=== PATIENT | male | born 1970 | race Caucasian/White ===

== ENCOUNTER → 2020-02-09 11:07 | Outpatient (BNVA) | payer OTHER, SELFPAY | PROVIDERS: PCP Family Medicine; Visit Provider Internal Medicine | DX: F11.20 Opioid dependence, uncomplicated (principal); F14.90 Cocaine use, unspecified, uncomplicated; E11.9 Type 2 diabetes mellitus without complications; Z79.4 Long term (current) use of insulin; Z59.0 Homelessness | CPT/HCPCS: 80305; 99202; 99211 ==

== ENCOUNTER → 2020-02-23 10:10 | Outpatient (BNVA) | payer OTHER, SELFPAY | PROVIDERS: PCP Family Medicine; Visit Provider Internal Medicine | DX: F11.99 Opioid use, unspecified with unspecified opioid-induced disorder (principal) | CPT/HCPCS: 80305; 99211 ==

== ENCOUNTER → 2020-03-08 10:49 | Outpatient (BNVA) | payer OTHER, SELFPAY | PROVIDERS: Visit Provider Internal Medicine | DX: Z76.89 Persons encountering health services in other specified circumstances (principal) | CPT/HCPCS: Q3014 ==

== ENCOUNTER → 2020-03-21 14:25 | Outpatient (BNVA) | payer OTHER, SELFPAY | PROVIDERS: Visit Provider Nurse Practitioner Psychiatric/Mental Health | DX: Z13.89 Encounter for screening for other disorder (principal) | CPT/HCPCS: Q3014 ==

== ENCOUNTER → 2020-04-04 13:17 | Outpatient (BNVA) | payer OTHER, SELFPAY | PROVIDERS: Visit Provider Nurse Practitioner Psychiatric/Mental Health | DX: F11.20 Opioid dependence, uncomplicated (principal) | CPT/HCPCS: Q3014 ==

== ENCOUNTER → 2020-04-19 10:53 | Outpatient (BNVA) | payer OTHER, SELFPAY | PROVIDERS: Visit Provider Internal Medicine | DX: Z13.89 Encounter for screening for other disorder (principal) | CPT/HCPCS: 99212 ==

== ENCOUNTER → 2020-05-03 12:03 | Outpatient (BNVA) | payer OTHER, SELFPAY | PROVIDERS: Visit Provider Internal Medicine | DX: F11.99 Opioid use, unspecified with unspecified opioid-induced disorder (principal) | CPT/HCPCS: Q3014 ==

== ENCOUNTER → 2020-05-17 15:32 | Outpatient (BNVA) | payer OTHER, SELFPAY | PROVIDERS: Visit Provider Internal Medicine | DX: F11.99 Opioid use, unspecified with unspecified opioid-induced disorder (principal) | CPT/HCPCS: Q3014 ==

== ENCOUNTER → 2020-05-31 09:55 | Outpatient (BNVA) | payer OTHER, SELFPAY | PROVIDERS: Visit Provider Internal Medicine | DX: F11.99 Opioid use, unspecified with unspecified opioid-induced disorder (principal); Z79.899 Other long term (current) drug therapy | CPT/HCPCS: 80305; 99212 ==

== ENCOUNTER → 2020-06-07 09:50 | Outpatient (BNVA) | payer OTHER, SELFPAY | PROVIDERS: Visit Provider Internal Medicine | DX: F11.99 Opioid use, unspecified with unspecified opioid-induced disorder (principal) | CPT/HCPCS: 80305; 99212 ==

== ENCOUNTER → 2020-06-19 10:22 | Outpatient (BNVA) | payer OTHER, SELFPAY | PROVIDERS: Visit Provider Internal Medicine | DX: Z51.81 Encounter for therapeutic drug level monitoring (principal) | CPT/HCPCS: 80305; Q3014 ==

== ENCOUNTER → 2020-07-05 09:02 | Outpatient (BNVA) | payer OTHER, SELFPAY | PROVIDERS: Visit Provider Internal Medicine | DX: Z51.81 Encounter for therapeutic drug level monitoring (principal); F11.20 Opioid dependence, uncomplicated; F14.90 Cocaine use, unspecified, uncomplicated | CPT/HCPCS: 80305; 99211; 99212 ==

== ENCOUNTER 2020-09-09 23:27 | Inpatient (IN) | payer OTHER, SELFPAY ==
--- NOTE | ~2020-09-09 | CT_ITS ---
EXAMINATION: CT HEAD WITHOUT CONTRAST CLINICAL INFORMATION: Altered mental status COMPARISON: 11/09/2017 TECHNIQUE: Contiguous axial imaging was performed from the skull base to vertex without intravenous administration of contrast. This CT examination was performed using dose optimization techniques as appropriate, variously including the following: *Automated exposure control *Adjustment of mA and/or kV according to patient size (this includes techniques or standardized protocols for targeted exams where dose is matched to indication/reason for exam; i.e. extremities or head) *Use of iterative reconstruction technique DLP: 1493 mGy-cm FINDINGS: There is no evidence of acute intracranial hemorrhage or territorial infarction. No abnormal mass effect or midline shift is seen. Rose to white matter differentiation is well preserved. No extra-axial fluid collections are identified. The ventricles are normal in size. There is no abnormal attenuation within the brain parenchyma. The osseous structures and soft tissues are normal. The mastoid air cells and visualized portions of the paranasal sinuses are well aerated. CT/CT head/brain wo con IMPRESSION: No acute intracranial pathology.
[2020-09-09 23:29] VITALS: BP 160/105; O2SAT 100; BMI 29.9
[2020-09-09 23:43] LABS: Glucose, Whole Blood 367 mg/dL (60-115)
--- NOTE | 2020-09-09 23:55 | ECG_ITS ---
Test Reason : SUBSTANCE USE Blood Pressure : / mmHG Vent. Rate : 099 BPM Atrial Rate : 099 BPM P-R Int : 132 ms QRS Dur : 086 ms QT Int : 388 ms P-R-T Axes : 079 085 075 degrees QTc Int : 497 ms Normal sinus rhythm Biatrial enlargement Abnormal ECG When compared with ECG of 13-NOV-2019 20:27, No significant changes seen Referred By: Fani Ponce Electronically Signed By:Charly Luu
--- NOTE | 2020-09-09 23:57 | ED_ITS ---
HPI - General Adult General Chief complaint: General Medical Stated complaint: cocaine use Time Seen by Provider: 09/09/20 23:49 Source: patient and EMS Mode of arrival: EMS Limitations: no limitations History of Present Illness HPI narrative: Patient is brought to the emergency room by EMS. EMS got a phone call, stating that the patient had high blood sugar. However, the patient has altered mental status. Patient states that he used heroin. Patient is also known to use cocaine but denies using cocaine. Patient complaining of feeling very thirsty. Related Data Home Medications Medication Instructions Recorded Confirmed buspirone 10 mg tablet 10 mg PO TID 02/09/20 07/05/20 clonidine HCl 0.1 mg tablet 0.1 mg PO BID PRN 02/09/20 07/05/20 insulin glargine 100 unit/mL (3 unit SUBCUT 02/09/20 07/05/20 mL) subcutaneous pen quetiapine 50 mg tablet 50 mg PO BEDTIME 02/09/20 07/05/20 trazodone 100 mg tablet 100 mg PO BEDTIME PRN 02/09/20 07/05/20 Previous Rx's Medication Instructions Recorded buprenorphine 8 mg-naloxone 2 mg 2 film SUBLINGUAL DAILY 14 Days 07/05/20 sublingual film #28 ea Allergies Allergy/AdvReac Type Severity Reaction Status Date / Time Penicillins Allergy Unknown UNKNOWN Verified 07/05/20 09:49 Review of Systems Review of Systems: Constitutional : No Weight loss, No Fever, No Chills, No Night Sweats, No Fatigue, No Malaise ENT/Mouth : No Hearing loss, No Ear Pain, No Nasal Congestion, No Sinus Pain, No Hoarseness, No sore throat, No Rhinorrhea, No Swallowing Difficulty Eyes: No Eye Pain, No Swelling, No Redness, No Foreign Body, No Discharge, No Vision Changes Cardiovascular : No Chest Pain, No SOB, No Dyspnea on Exertion, No Orthopnea, No Edema, No Palpitations Respiratory : No Cough, No Sputum, No Wheezing, No Smoke Exposure, No Dyspnea Gastrointestinal : Complaining of nausea and vomiting, No Diarrhea, No Constipation, No abdominal Pain, No Hematochezia, No Melena Genitourinary : no irregular bleeding, No Dysuria, No Urinary Frequency, No Hematuria, No Urinary Incontinence, No Urgency, No Flank Pain, No Urinary Flow Changes, No Hesitancy Musculoskeletal : No joint pain, No Myalgias, No Joint Swelling Skin : No Skin Lesions, No rash Neuro : No Weakness, No Numbness, No Paresthesias, No Loss of Consciousness, No Dizziness, No Headache Psych : No Anxiety/Panic, No Depression, No SI/HI/AH/VH, No Social Issues, Heme/Lymph: No Bruising, No Bleeding,No Lymphadenopathy Endocrine : No Polyuria, No Polydipsia, No Temperature Intolerance [facility] Past Medical History Medical History Opioid use disorder Opioid use disorder, mild, in controlled environment Physical Exam Vital Signs: Vital Signs: Body Mass Index 29.9 Appearance: Alert. Somnolent but easily arousable. Eyes: Pupils equal, round and reactive to light. ENT: Pharynx normal. Neck: Normal inspection. Neck supple. No lymph nodes noted. No crepitus CVS: Normal heart rate and rhythm. Pulses normal. Normal S1 and S2 Respiratory: No respiratory distress. Breath sounds normal. No Wheezing. No rales Abdomen: Soft and nontender. No rigidity. No distention. good BS x4 Skin: Skin warm and dry. Normal skin color. Normal skin turgor. Extremities: No lower extremity edema. No lower extremity edema. No Lacerations. No Rash Neuro: No sensory deficit. Moving all extermities. No slurred speech. Course Course Course Narrative: After a 1 L of normal saline and 10 units of insulin, patient point of care glucose is 312. Patient is receiving 5 more units of IV insulin and more fluids. Patient continues being nauseous and vomiting, patient already received Zofran and Compazine, patient is now receiving Reglan as well. Patient's anion gap is open, repeat labs are due at 05:00. Patient is no longer vomiting, denying gap is close and blood sugar control, patient likely to be discharged home. Sign-out given to Dr. Dupree Medical Decision Making Lab Data Result diagrams: 09/10/20 00:44 09/10/20 00:44 Labs: Lab Results 09/09/20 09/10/20 09/10/20 Range/Units 23:38 00:44 00:44 WBC 10.7 (4.8-10.8) X10*3/uL RBC 5.63 (4.60-5.80) X10*6/uL Hgb 16.0 (14.0-18.0) g/dl Hct 45.6 (42-52) % MCV 81.0 (80-98) fL MCH 28.4 (27.0-33.0) pg MCHC 35.1 (31.0-36.0) g/dl RDW 12.3 (11.0-16.0) % Plt Count 416 H (160-400) X10*3/uL MPV 9.7 (9.4-12.4) fL Immature Gran % (Auto) 0.4 (0.0-0.4) % Neut % (Auto) 88.4 H (45-73) % Lymph % (Auto) 8.5 L (20-40) % [place] % (Auto) 2.4 (2-11) % Eos % (Auto) 0.0 (0-4) % Baso % (Auto) 0.3 (0-2) % Lymph # (Auto) 0.9 L (1.2-4.9) X10*3/uL [place] # (Auto) 0.3 (0.1-1.2) X10*3/uL Eos # (Auto) 0.0 (0.0-0.4) X10*3/uL Baso # (Auto) 0.0 (0.0-0.2) X10*3/uL Abs Immat Gran (auto) 0.04 H (0.00-0.03) X10*3/uL Absolute Neuts (auto) 9.5 H (2.0-8.3) X10*3/uL Absolute Nucleated RBC 0.000 (0.0-0.012) X10*3/uL Nucleated RBC % (auto) 0.0 (0.0-0.2) /100WBC Sodium 138 (135-145) mmol/L Potassium 3.5 (3.3-5.1) mmol/L Chloride 98 (96-108) mmol/L Carbon Dioxide 19 L (22-29) mmol/L Anion Gap 25 H (12-20) BUN 27 H (9-16) mg/dL Creatinine 1.35 (0.5-1.4) mg/dL Estim Creat Clear Calc 68.7 Estimated GFR 56 POC Glucose 367 H* (60-115) mg/dL Random Glucose 338 H (60-115) mg/dL Calcium 10.2 (8.4-10.2) mg/dL Total Bilirubin 0.7 (0.0-1.0) mg/dL Direct Bilirubin 0.3 (0.0-0.5) mg/dL AST 22 (5-37) U/L ALT 23 (0-40) U/L Alkaline Phosphatase 103 (39-117) U/L Total Protein 7.8 (6.5-8.0) g/dL Albumin 4.5 (3.5-5.0) g/dL Urine Color Urine Appearance Urine pH (5.0-8.0) Ur Specific [place] (1.005-1.025) Urine Protein (NEG-TRACE) MG/DL Urine Glucose (UA) (NEG) MG/DL Urine Ketones (NEG) MG/DL Urine Blood (NEG) Urine Nitrite (NEG) Ur Leukocyte Esterase (NEG) Urine RBC (0) /HPF Urine WBC (0-4) /HPF Ur Squamous Epith Cells /LPF Urine Bacteria /LPF Urine Mucus /LPF Urine Opiates Screen (Not Detect) Ur Barbiturates Screen (Not Detect) Ur Phencyclidine Scrn (Not Detect) Ur Amphetamines Screen (Not Detect) U Benzodiazepines Scrn (Not Detect) Urine Cocaine Screen (Not Detect) U Marijuana (THC) Screen (Not Detect) Ethyl Alcohol mg/dL Acetone, Qual Moderate H (Negative) 09/10/20 09/10/20 09/10/20 Range/Units 00:44 00:58 00:58 WBC (4.8-10.8) X10*3/uL RBC (4.60-5.80) X10*6/uL Hgb (14.0-18.0) g/dl Hct (42-52) % MCV (80-98) fL MCH (27.0-33.0) pg MCHC (31.0-36.0) g/dl RDW (11.0-16.0) % Plt Count (160-400) X10*3/uL MPV (9.4-12.4) fL Immature Gran % (Auto) (0.0-0.4) % Neut % (Auto) (45-73) % Lymph % (Auto) (20-40) % [place] % (Auto) (2-11) % Eos % (Auto) (0-4) % Baso % (Auto) (0-2) % Lymph # (Auto) (1.2-4.9) X10*3/uL [place] # (Auto) (0.1-1.2) X10*3/uL Eos # (Auto) (0.0-0.4) X10*3/uL Baso # (Auto) (0.0-0.2) X10*3/uL Abs Immat Gran (auto) (0.00-0.03) X10*3/uL Absolute Neuts (auto) (2.0-8.3) X10*3/uL Absolute Nucleated RBC (0.0-0.012) X10*3/uL Nucleated RBC % (auto) (0.0-0.2) /100WBC Sodium (135-145) mmol/L Potassium (3.3-5.1) mmol/L Chloride (96-108) mmol/L Carbon Dioxide (22-29) mmol/L Anion Gap (12-20) BUN (9-16) mg/dL Creatinine (0.5-1.4) mg/dL Estim Creat Clear Calc Estimated GFR POC Glucose (60-115) mg/dL Random Glucose (60-115) mg/dL Calcium (8.4-10.2) mg/dL Total Bilirubin (0.0-1.0) mg/dL Direct Bilirubin (0.0-0.5) mg/dL AST (5-37) U/L ALT (0-40) U/L Alkaline Phosphatase (39-117) U/L Total Protein (6.5-8.0) g/dL Albumin (3.5-5.0) g/dL Urine Color YELLOW Urine Appearance CLEAR Urine pH 6.0 (5.0-8.0) Ur Specific [place] >= 1.030 H (1.005-1.025) Urine Protein 1+ H (NEG-TRACE) MG/DL Urine Glucose (UA) 500 H (NEG) MG/DL Urine Ketones >=80 (NEG) MG/DL Urine Blood TRACE (NEG) Urine Nitrite NEG (NEG) Ur Leukocyte Esterase NEG (NEG) Urine RBC 1-4 (0) /HPF Urine WBC 0 (0-4) /HPF Ur Squamous Epith Cells TRACE /LPF Urine Bacteria TRACE /LPF Urine Mucus 1+ /LPF Urine Opiates Screen POSITIVE H (Not Detect) Ur Barbiturates Screen Not Detected (Not Detect) Ur Phencyclidine Scrn Not Detected (Not Detect) Ur Amphetamines Screen Not Detected (Not Detect) U Benzodiazepines Scrn Not Detected (Not Detect) Urine Cocaine Screen POSITIVE H (Not Detect) U Marijuana (THC) Screen Not Detected (Not Detect) Ethyl Alcohol < 10 mg/dL Acetone, Qual (Negative) Imaging Data CT scan - head: Radiologist's impression: FINDINGS: There is no evidence of acute intracranial hemorrhage or territorial infarction. No abnormal mass effect or midline shift is seen. Rose to white matter differentiation is well preserved. No extra-axial fluid collections are identified. The ventricles are normal in size. There is no abnormal attenuation within the brain parenchyma. The osseous structures and soft tissues are normal. The mastoid air cells and visualized portions of the paranasal sinuses are well aerated. CT/CT head/brain wo con IMPRESSION: No acute intracranial pathology. ECG Data Attestation: I personally reviewed and interpreted this ECG as follows: (Tender rhythm, heart rate 99, no ST segment depression or elevation, no T-wave inversions, QTC 497) Discharge Plan Discharge Clinical Impression: Substance abuse, Hyperglycemia Instructions: Diabetic Hyperglycemia (ED), Polysubstance Abuse (ED) Additional Instructions: Please follow-up with your primary care physician tomorrow. If you have any w orsening or new symptoms, please return to the emergency room or call 911 Prescriptions: No Action buprenorphine-naloxone [Suboxone] 8-2 mg film 2 film sublingual DAILY 14 Days Qty: 28 RF: 0 quetiapine 50 mg tablet 50 mg PO BEDTIME RF: 0 Lantus Solostar U-100 Insulin 100 unit/mL (3 mL) insulin pen subcut RF: 0 buspirone 10 mg tablet 10 mg PO TID RF: 0 clonidine HCl 0.1 mg tablet 0.1 mg PO BID PRN (Reason: anxiety) RF: 0 trazodone 100 mg tablet 100 mg PO BEDTIME PRN (Reason: insomnia) RF: 0
[2020-09-10] VITALS (20 sets, daily range): BP systolic 140–206; BP diastolic 66–95; PULSE 78–118; RESP 14–38; TEMP 37.6–38; O2SAT 94–100; BMI 27.3
[2020-09-10] MEDS: 0.9 % Sodium Chloride 1,000 ML 999 ML IVCONT ×3 (00:06→02:58)
[2020-09-10] MEDS: Insulin Regular, Human 100 UNIT/ML 3 ML VIAL 10 UNIT IVPUSH (00:06)
[2020-09-10] MEDS: ondansetron HCL 4 MG/2 ML VIAL IVPUSH ×2 (00:17→23:03)
[2020-09-10 00:48] LABS: Basophils Percent Auto 0.3 % (0-2); Hematocrit 45.6 % (42-52); Imm Gran Abs Auto 0.04 X10*3/uL (0.00-0.03); Imm Gran Pct Auto 0.4 % (0.0-0.4); Lymphocytes Absolute Auto 0.9 X10*3/uL (1.2-4.9); Lymphocytes Percent Auto 8.5 % (20-40); MANUAL DIFF FLAG NO; Mean Corpuscular HGB Conc 35.1 g/dl (31.0-36.0); Mean Corpuscular Hemoglobin 28.4 pg (27.0-33.0); Mean Platelet Volume 9.7 fL (9.4-12.4); Monocytes Absolute Auto 0.3 X10*3/uL (0.1-1.2); Monocytes Percent Auto 2.4 % (2-11); Neutrophils Absolute Auto 9.5 X10*3/uL (2.0-8.3); Neutrophils Percent Auto 88.4 % (45-73); Platelet Count 416 X10*3/uL (160-400); Red Blood Count 5.63 X10*6/uL (4.60-5.80); Red Cell Distribution Width 12.3 % (11.0-16.0); White Blood Count 10.7 X10*3/uL (4.8-10.8)
[2020-09-10 01:05] LABS: Appearance Urine CLEAR; Color Urine YELLOW; Glucose Urine UA 500 MG/DL (NEG); Leukocyte Esterase Urine NEG (NEG); Nitrite Urine NEG (NEG); Specific Gravity - Urine >= 1.030 (1.005-1.025); Urine Blood TRACE (NEG); Urine Ketones >=80 MG/DL (NEG); Urine Protein 1+ MG/DL (NEG-TRACE)
[2020-09-10 01:17] LABS: Bacteria Urine TRACE /LPF; Mucus Urine 1+ /LPF; Squamous Epithelial Cell Urine TRACE /LPF; WBC Urine 0 /HPF (0-4)
[2020-09-10 01:19] LABS: Acetone, serum QL Moderate (Negative)
[2020-09-10 01:25] LABS: Alanine Aminotransferase 23 U/L (0-40); Albumin Level 4.5 g/dL (3.5-5.0); Alkaline Phosphatase 103 U/L (39-117); Aspartate Amino Transferase 22 U/L (5-37); Bilirubin Direct 0.3 mg/dL (0.0-0.5); Bilirubin Total 0.7 mg/dL (0.0-1.0); Blood Urea Nitrogen 27 mg/dL (9-16); Calcium 10.2 mg/dL (8.4-10.2); Creatinine Clr Calc Pharmacy 68.7; Estimated Glomerular Filt Rate 56; Glucose Random 338 mg/dL (60-115); Total Protein 7.8 g/dL (6.5-8.0)
[2020-09-10 01:38] LABS: Amphetamine Screen Urine Not Detected (Not Detect); Barbiturates, Urine Not Detected (Not Detect); Benzodiazepines Screen Urine Not Detected (Not Detect); Cannabinoid Screen Urine Not Detected (Not Detect); Cocaine Screen Urine POSITIVE (Not Detect); Opiate Screen Urine POSITIVE (Not Detect); Phencyclidine Screen Urine Not Detected (Not Detect)
[2020-09-10 01:39] LABS: Anion Gap 25 (12-20); Carbon Dioxide 19 mmol/L (22-29); Chloride 98 mmol/L (96-108); Potassium 3.5 mmol/L (3.3-5.1); Sodium 138 mmol/L (135-145)
[2020-09-10 01:49] LABS: Ethanol < 10 mg/dL
[2020-09-10] MEDS: Prochlorperazine Edisylate 10 MG/2 ML VIAL IVPUSH (02:26)
[2020-09-10] MEDS: Insulin Regular, Human 100 UNIT/ML 3 ML VIAL IVPUSH (02:58)
[2020-09-10 05:28] LABS: Glucose, Whole Blood 266 mg/dL (60-115)
[2020-09-10 05:28] LABS: Glucose, Whole Blood 312 mg/dL (60-115)
[2020-09-10] MEDS: diphenhydrAMINE HCL 50 MG/ML VIAL 25 MG IVPUSH (05:30)
[2020-09-10] MEDS: Metoclopramide HCl 10 MG/2 ML VIAL IVPUSH (05:30)
[2020-09-10 05:57] LABS: Anion Gap 26 (12-20); Blood Urea Nitrogen 28 mg/dL (9-16); Calcium 9.3 mg/dL (8.4-10.2); Carbon Dioxide 19 mmol/L (22-29); Chloride 99 mmol/L (96-108); Creatinine Clr Calc Pharmacy 69.8; Estimated Glomerular Filt Rate 57; Glucose Random 394 mg/dL (60-115); Potassium 3.6 mmol/L (3.3-5.1); Sodium 140 mmol/L (135-145)
[2020-09-10] MEDS: Lactated Ringers 2,000 ML 999 ML IV (07:18)
[2020-09-10] MEDS: Insulin Regular/NS 100 UNIT/100 ML PLAST..BAG 10 UNIT IVCONT (07:20)
--- NOTE | 2020-09-10 07:26 | PC.NURSE ---
pt is responsive to painful stimuli, placed on cardiac exercise physiologist- hr 110s, rr in the 40s. iv placed in r forearm and iv by ems in l ac patent. medicated per emar and insulin drip started per order.
[2020-09-10 07:45] LABS: COVID-19 Test Negative (Negative)
--- NOTE | 2020-09-10 07:52 | PC.NURSE ---
plan to start new ivf with potassium, if no icu bed, plan to transfer pt.
[2020-09-10 08:44] LABS: Glucose, Whole Blood 335 mg/dL (60-115)
--- NOTE | 2020-09-10 08:47 | ED.GENADULT ---
HPI - General Adult General Chief complaint: General Medical Stated complaint: cocaine use Time Seen by Provider: 09/09/20 23:49 Source: patient and EMS Mode of arrival: EMS Limitations: no limitations Related Data Home Medications Medication Instructions Recorded Confirmed clonidine HCl 0.1 mg tablet 0.1 mg PO BID PRN 02/09/20 09/13/20 insulin glargine 100 unit/mL (3 40 unit SUBCUT BEDTIME 02/09/20 09/13/20 mL) subcutaneous pen trazodone 100 mg tablet 100 mg PO BEDTIME PRN 02/09/20 09/13/20 hydroxyzine HCl 25 mg tablet 1 tab PO BID PRN 09/13/20 09/13/20 insulin aspart U-100 100 unit/mL See Protocol SUBCUT DIRECTED 09/13/20 09/13/20 (3 mL) subcutaneous pen (Novolog Flexpen U-100 Insulin aspart) quetiapine 100 mg tablet 1 tab PO BEDTIME 09/13/20 09/13/20 Previous Rx's Medication Instructions Recorded oxycodone-acetaminophen 5 mg-325 1 - 2 tab PO Q6H PRN #20 tab 09/20/20 mg tablet (Percocet) omeprazole magnesium 20 mg 20 mg PO BID #60 tab 09/26/20 tablet,delayed release (Prilosec OTC) buprenorphine 8 mg-naloxone 2 mg 2 film SUBLINGUAL DAILY 7 Days #14 10/09/20 sublingual film (Suboxone) ea Allergies Allergy/AdvReac Type Severity Reaction Status Date / Time Penicillins Allergy Unknown UNKNOWN Verified 09/26/20 11:39 [facility] Past Medical History Medical History (Updated 09/26/20 @ 11:39 by Daquan Bermudez MD) Opioid use disorder Perforated chronic gastric ulcer Social History Social History Household Members: Family Housing: Apartment Do you presently have visiting nurse or other home services: No Alcohol intake: current Alcohol intake frequency: does not drink Patient Tobacco Use Status: Current everyday Tobacco user Tobacco use type: Cigarette Cigarette Packs Per Day: 1 Cigarettes Per Day: 20.0 Second Hand Smoke Exposure: No Substance Use Type: Crack/Cocaine and Heroin service: No Current occupational status: unemployed Physical Exam Vital Signs: Vital Signs: Last Vital Signs Temp 98.3 F 09/11/20 08:00 Pulse 76 09/11/20 09:00 Resp 29 H 09/11/20 09:00 BP 165/92 H 09/11/20 09:00 Pulse Ox 98 09/11/20 09:00 Body Mass Index 27.3 Medical Decision Making Lab Data Result diagrams: 09/11/20 05:29 09/11/20 09:42 Labs: Lab Results 09/09/20 09/10/20 09/10/20 Range/Units 23:38 00:44 00:44 WBC 10.7 (4.8-10.8) X10*3/uL RBC 5.63 (4.60-5.80) X10*6/uL Hgb 16.0 (14.0-18.0) g/dl Hct 45.6 (42-52) % MCV 81.0 (80-98) fL MCH 28.4 (27.0-33.0) pg MCHC 35.1 (31.0-36.0) g/dl RDW 12.3 (11.0-16.0) % Plt Count 416 H (160-400) X10*3/uL MPV 9.7 (9.4-12.4) fL Immature Gran % (Auto) 0.4 (0.0-0.4) % Neut % (Auto) 88.4 H (45-73) % Lymph % (Auto) 8.5 L (20-40) % [place] % (Auto) 2.4 (2-11) % Eos % (Auto) 0.0 (0-4) % Baso % (Auto) 0.3 (0-2) % Lymph # (Auto) 0.9 L (1.2-4.9) X10*3/uL [place] # (Auto) 0.3 (0.1-1.2) X10*3/uL Eos # (Auto) 0.0 (0.0-0.4) X10*3/uL Baso # (Auto) 0.0 (0.0-0.2) X10*3/uL Abs Immat Gran (auto) 0.04 H (0.00-0.03) X10*3/uL Absolute Neuts (auto) 9.5 H (2.0-8.3) X10*3/uL Absolute Nucleated RBC 0.000 (0.0-0.012) X10*3/uL Nucleated RBC % (auto) 0.0 (0.0-0.2) /100WBC Sodium 138 (135-145) mmol/L Potassium 3.5 (3.3-5.1) mmol/L Chloride 98 (96-108) mmol/L Carbon Dioxide 19 L (22-29) mmol/L Anion Gap 25 H (12-20) BUN 27 H (9-16) mg/dL Creatinine 1.35 (0.5-1.4) mg/dL Estim Creat Clear Calc 68.7 Estimated GFR 56 POC Glucose 367 H* (60-115) mg/dL Random Glucose 338 H (60-115) mg/dL Calcium 10.2 (8.4-10.2) mg/dL Total Bilirubin 0.7 (0.0-1.0) mg/dL Direct Bilirubin 0.3 (0.0-0.5) mg/dL AST 22 (5-37) U/L ALT 23 (0-40) U/L Alkaline Phosphatase 103 (39-117) U/L Total Protein 7.8 (6.5-8.0) g/dL Albumin 4.5 (3.5-5.0) g/dL Urine Color Urine Appearance Urine pH (5.0-8.0) Ur Specific [place] (1.005-1.025) Urine Protein (NEG-TRACE) MG/DL Urine Glucose (UA) (NEG) MG/DL Urine Ketones (NEG) MG/DL Urine Blood (NEG) Urine Nitrite (NEG) Ur Leukocyte Esterase (NEG) Urine RBC (0) /HPF Urine WBC (0-4) /HPF Ur Squamous Epith Cells /LPF Urine Bacteria /LPF Urine Mucus /LPF Urine Opiates Screen (Not Detect) Ur Barbiturates Screen (Not Detect) Ur Phencyclidine Scrn (Not Detect) Ur Amphetamines Screen (Not Detect) U Benzodiazepines Scrn (Not Detect) Urine Cocaine Screen (Not Detect) U Marijuana (THC) Screen (Not Detect) Ethyl Alcohol mg/dL Acetone, Qual Moderate H (Negative) COVID-19 ([place]) (Negative) COVID-19 Clin Com 09/10/20 09/10/20 09/10/20 Range/Units 00:44 00:58 00:58 WBC (4.8-10.8) X10*3/uL RBC (4.60-5.80) X10*6/uL Hgb (14.0-18.0) g/dl Hct (42-52) % MCV (80-98) fL MCH (27.0-33.0) pg MCHC (31.0-36.0) g/dl RDW (11.0-16.0) % Plt Count (160-400) X10*3/uL MPV (9.4-12.4) fL Immature Gran % (Auto) (0.0-0.4) % Neut % (Auto) (45-73) % Lymph % (Auto) (20-40) % [place] % (Auto) (2-11) % Eos % (Auto) (0-4) % Baso % (Auto) (0-2) % Lymph # (Auto) (1.2-4.9) X10*3/uL [place] # (Auto) (0.1-1.2) X10*3/uL Eos # (Auto) (0.0-0.4) X10*3/uL Baso # (Auto) (0.0-0.2) X10*3/uL Abs Immat Gran (auto) (0.00-0.03) X10*3/uL Absolute Neuts (auto) (2.0-8.3) X10*3/uL Absolute Nucleated RBC (0.0-0.012) X10*3/uL Nucleated RBC % (auto) (0.0-0.2) /100WBC Sodium (135-145) mmol/L Potassium (3.3-5.1) mmol/L Chloride (96-108) mmol/L Carbon Dioxide (22-29) mmol/L Anion Gap (12-20) BUN (9-16) mg/dL Creatinine (0.5-1.4) mg/dL Estim Creat Clear Calc Estimated GFR POC Glucose (60-115) mg/dL Random Glucose (60-115) mg/dL Calcium (8.4-10.2) mg/dL Total Bilirubin (0.0-1.0) mg/dL Direct Bilirubin (0.0-0.5) mg/dL AST (5-37) U/L ALT (0-40) U/L Alkaline Phosphatase (39-117) U/L Total Protein (6.5-8.0) g/dL Albumin (3.5-5.0) g/dL Urine Color YELLOW Urine Appearance CLEAR Urine pH 6.0 (5.0-8.0) Ur Specific [place] >= 1.030 H (1.005-1.025) Urine Protein 1+ H (NEG-TRACE) MG/DL Urine Glucose (UA) 500 H (NEG) MG/DL Urine Ketones >=80 (NEG) MG/DL Urine Blood TRACE (NEG) Urine Nitrite NEG (NEG) Ur Leukocyte Esterase NEG (NEG) Urine RBC 1-4 (0) /HPF Urine WBC 0 (0-4) /HPF Ur Squamous Epith Cells TRACE /LPF Urine Bacteria TRACE /LPF Urine Mucus 1+ /LPF Urine Opiates Screen POSITIVE H (Not Detect) Ur Barbiturates Screen Not Detected (Not Detect) Ur Phencyclidine Scrn Not Detected (Not Detect) Ur Amphetamines Screen Not Detected (Not Detect) U Benzodiazepines Scrn Not Detected (Not Detect) Urine Cocaine Screen POSITIVE H (Not Detect) U Marijuana (THC) Screen Not Detected (Not Detect) Ethyl Alcohol < 10 mg/dL Acetone, Qual (Negative) COVID-19 ([place]) (Negative) COVID-19 Clin Com 09/10/20 09/10/20 09/10/20 Range/Units 02:20 04:16 05:18 WBC (4.8-10.8) X10*3/uL RBC (4.60-5.80) X10*6/uL Hgb (14.0-18.0) g/dl Hct (42-52) % MCV (80-98) fL MCH (27.0-33.0) pg MCHC (31.0-36.0) g/dl RDW (11.0-16.0) % Plt Count (160-400) X10*3/uL MPV (9.4-12.4) fL Immature Gran % (Auto) (0.0-0.4) % Neut % (Auto) (45-73) % Lymph % (Auto) (20-40) % [place] % (Auto) (2-11) % Eos % (Auto) (0-4) % Baso % (Auto) (0-2) % Lymph # (Auto) (1.2-4.9) X10*3/uL [place] # (Auto) (0.1-1.2) X10*3/uL Eos # (Auto) (0.0-0.4) X10*3/uL Baso # (Auto) (0.0-0.2) X10*3/uL Abs Immat Gran (auto) (0.00-0.03) X10*3/uL Absolute Neuts (auto) (2.0-8.3) X10*3/uL Absolute Nucleated RBC (0.0-0.012) X10*3/uL Nucleated RBC % (auto) (0.0-0.2) /100WBC Sodium 140 (135-145) mmol/L Potassium 3.6 (3.3-5.1) mmol/L Chloride 99 (96-108) mmol/L Carbon Dioxide 19 L (22-29) mmol/L Anion Gap 26 H (12-20) BUN 28 H (9-16) mg/dL Creatinine 1.33 (0.5-1.4) mg/dL Estim Creat Clear Calc 69.8 Estimated GFR 57 POC Glucose 312 H 266 H (60-115) mg/dL Random Glucose 394 H* (60-115) mg/dL Calcium 9.3 D (8.4-10.2) mg/dL Total Bilirubin (0.0-1.0) mg/dL Direct Bilirubin (0.0-0.5) mg/dL AST (5-37) U/L ALT (0-40) U/L Alkaline Phosphatase (39-117) U/L Total Protein (6.5-8.0) g/dL Albumin (3.5-5.0) g/dL Urine Color Urine Appearance Urine pH (5.0-8.0) Ur Specific [place] (1.005-1.025) Urine Protein (NEG-TRACE) MG/DL Urine Glucose (UA) (NEG) MG/DL Urine Ketones (NEG) MG/DL Urine Blood (NEG) Urine Nitrite (NEG) Ur Leukocyte Esterase (NEG) Urine RBC (0) /HPF Urine WBC (0-4) /HPF Ur Squamous Epith Cells /LPF Urine Bacteria /LPF Urine Mucus /LPF Urine Opiates Screen (Not Detect) Ur Barbiturates Screen (Not Detect) Ur Phencyclidine Scrn (Not Detect) Ur Amphetamines Screen (Not Detect) U Benzodiazepines Scrn (Not Detect) Urine Cocaine Screen (Not Detect) U Marijuana (THC) Screen (Not Detect) Ethyl Alcohol mg/dL Acetone, Qual (Negative) COVID-19 ([place]) (Negative) COVID-19 Clin Com 09/10/20 Range/Units 07:25 WBC (4.8-10.8) X10*3/uL RBC (4.60-5.80) X10*6/uL Hgb (14.0-18.0) g/dl Hct (42-52) % MCV (80-98) fL MCH (27.0-33.0) pg MCHC (31.0-36.0) g/dl RDW (11.0-16.0) % Plt Count (160-400) X10*3/uL MPV (9.4-12.4) fL Immature Gran % (Auto) (0.0-0.4) % Neut % (Auto) (45-73) % Lymph % (Auto) (20-40) % [place] % (Auto) (2-11) % Eos % (Auto) (0-4) % Baso % (Auto) (0-2) % Lymph # (Auto) (1.2-4.9) X10*3/uL [place] # (Auto) (0.1-1.2) X10*3/uL Eos # (Auto) (0.0-0.4) X10*3/uL Baso # (Auto) (0.0-0.2) X10*3/uL Abs Immat Gran (auto) (0.00-0.03) X10*3/uL Absolute Neuts (auto) (2.0-8.3) X10*3/uL Absolute Nucleated RBC (0.0-0.012) X10*3/uL Nucleated RBC % (auto) (0.0-0.2) /100WBC Sodium (135-145) mmol/L Potassium (3.3-5.1) mmol/L Chloride (96-108) mmol/L Carbon Dioxide (22-29) mmol/L Anion Gap (12-20) BUN (9-16) mg/dL Creatinine (0.5-1.4) mg/dL Estim Creat Clear Calc Estimated GFR POC Glucose (60-115) mg/dL Random Glucose (60-115) mg/dL Calcium (8.4-10.2) mg/dL Total Bilirubin (0.0-1.0) mg/dL Direct Bilirubin (0.0-0.5) mg/dL AST (5-37) U/L ALT (0-40) U/L Alkaline Phosphatase (39-117) U/L Total Protein (6.5-8.0) g/dL Albumin (3.5-5.0) g/dL Urine Color Urine Appearance Urine pH (5.0-8.0) Ur Specific [place] (1.005-1.025) Urine Protein (NEG-TRACE) MG/DL Urine Glucose (UA) (NEG) MG/DL Urine Ketones (NEG) MG/DL Urine Blood (NEG) Urine Nitrite (NEG) Ur Leukocyte Esterase (NEG) Urine RBC (0) /HPF Urine WBC (0-4) /HPF Ur Squamous Epith Cells /LPF Urine Bacteria /LPF Urine Mucus /LPF Urine Opiates Screen (Not Detect) Ur Barbiturates Screen (Not Detect) Ur Phencyclidine Scrn (Not Detect) Ur Amphetamines Screen (Not Detect) U Benzodiazepines Scrn (Not Detect) Urine Cocaine Screen (Not Detect) U Marijuana (THC) Screen (Not Detect) Ethyl Alcohol mg/dL Acetone, Qual (Negative) COVID-19 ([place]) Negative (Negative) COVID-19 Clin Com See Note Discharge Plan Discharge Clinical Impression: Substance abuse, Hyperglycemia, DKA (diabetic ketoacidoses) Patient Disposition: Admitted As Inpatient Interventions: Admission Worksheet (ED) Last Done: 09/10/20 09:58 Discharge Date/Time: 09/10/20 09:59
[2020-09-10] MEDS: KCl 20 mEq in 5 % Dex/Lact Rin 20 MEQ/1,000 ML IV.SOLN 150 MEQ IVCONT (08:49)
[2020-09-10] MEDS: Heparin Sodium,Porcine 5,000 UNIT/ML VIAL 5000 UNIT SUBCUT ×3 (09:22→23:51)
[2020-09-10 09:40] LABS: Anion Gap 25 (12-20); Blood Urea Nitrogen 31 mg/dL (9-16); Carbon Dioxide 16 mmol/L (22-29); Chloride 103 mmol/L (96-108); Creatinine Clr Calc Pharmacy 66.3; Estimated Glomerular Filt Rate 54; Glucose Random 333 mg/dL (60-115); Potassium 3.1 mmol/L (3.3-5.1); Sodium 141 mmol/L (135-145)
[2020-09-10 09:40] LABS: Glucose, Whole Blood 301 mg/dL (60-115)
[2020-09-10] MEDS: Dextrose 5 % and Lactated Ring 1,000 ML 200 ML IVCONT ×3 (09:55→22:21)
[2020-09-10 09:57] LABS: Calcium 10.1 mg/dL (8.4-10.2)
[2020-09-10] MEDS: Potassium Chloride/H20 10 MEQ/100 ML PIGGYBACK 100 MEQ IV ×8 (10:04→17:56)
--- NOTE | 2020-09-10 10:49 | P.HPCC_ITS ---
History of Present Illness Date of Service: 09/10/20 Chief Complaint: Alteration of mental status, hyperglycemia, substance abuse 50-year-old gentleman with underlying history of polysubstance abuse including opiates and cocaine, on Suboxone, diabetes mellitus, hypertension, and depression admitted on 09/10/2020 with 1 day history of alteration of mental status and hyperglycemia. Patient states that he has been using cocaine. On ER evaluation he was noted to be in diabetic ketoacidosis. His CT head was nega tive for an acute pathology. Patient has been started on IV fluid resuscitation and insulin drip and admitted to intensive care unit. Review of Systems Review of Systems: Yes Unobtainable due to mental status Neurologic: Reports confusion Psychiatric: Psychiatric: Reports confusion PMF Past Medical History Medical History Opioid use disorder Opioid use disorder, mild, in controlled environment Social History Social History Alcohol intake: unknown Smoked in Last 30 Days: No Use of substances other than those prescribed or required for medical reasons: Yes Substance Use Type: Crack/Cocaine and Heroin Substance Use Frequency: Chronic Longstanding Any prior treatment program specific to substance use: No Advance Directives: No Advance Directives Information Provided: No Meds Allergies Allergy/AdvReac Type Severity Reaction Status Date / Time Penicillins Allergy Unknown UNKNOWN Verified 07/05/20 09:49 Active Medications: Current Medications Generic Name Dose Route Start Last Admin Trade Name Freq PRN Reason Stop Dose Admin Heparin Sodium (Porcine) 5,000 unit 09/10/20 08:15 09/10/20 09:22 Heparin Sodium,Porcine 5,000 Unit/Ml Vial SUBCUT 5,000 unit Q8H ASHLYN Administration Insulin Human Regular 100 unit in 100 mls @ 10 mls/hr 09/10/20 06:45 09/10/20 09:38 Myxredlin IVCONT 15 unit/hr .Q10H ASHLYN 15 mls/hr Titration Protocol 10 UNIT/HR Dextrose/Lactated Ringer's 1,000 mls @ 200 mls/hr 09/10/20 08:15 09/10/20 09:55 D5lr IVCONT 200 mls/hr .Q5H ASHLYN Administration Potassium Chloride 10 meq in 100 mls @ 100 mls/hr 09/10/20 10:00 09/10/20 10:04 IV 09/10/20 13:59 100 mls/hr Q1H ASHLYN Administration Home Medications Medication Instructions Recorded Confirmed Last Taken Type buspirone 10 mg tablet 10 mg PO TID 02/09/20 07/05/20 Unknown History clonidine HCl 0.1 mg tablet 0.1 mg PO BID PRN 02/09/20 07/05/20 Unknown History insulin glargine 100 unit/mL (3 unit SUBCUT 02/09/20 07/05/20 Unknown History mL) subcutaneous pen quetiapine 50 mg tablet 50 mg PO BEDTIME 02/09/20 07/05/20 Unknown History trazodone 100 mg tablet 100 mg PO BEDTIME PRN 02/09/20 07/05/20 Unknown History Physical Exam Vital Signs: Vital Signs: Last Vital Signs Pulse 82 09/10/20 10:00 Resp 36 H 09/10/20 10:00 BP 169/92 H 09/10/20 10:00 Pulse Ox 97 09/10/20 10:00 Body Mass Index 27.3 Const: General: no acute distress, confusion and other (Intermittently agitated) Orientation/consciousness: confusion Eyes: Sclerae: sclerae normal EOM: EOMs intact bilaterally Neck: Neck: Yes no lymphadenopathy, Yes trachea midline and Yes supple Resp: Effort & Inspection: normal respiratory effort and no respiratory distress Auscultation: clear to auscultation bilaterally Cardio: Rate: tachycardic Rhythm: regular rhythm Heart sounds: no gallops, no murmurs and no rubs GI: Palpation (GI): Soft to palpation and Other GI palpation findings present ( Nontender) Auscultation: normal bowel sounds Neuro: General: confusion Extrem: General: Yes no pedal edema, No clubbing and No cyanosis Results Labs CBC and Chem 7: 09/10/20 00:44 09/10/20 09:12 Labs: Laboratory Results - last 24 hr 09/09/20 09/10/20 09/10/20 23:38 00:44 00:44 MCV 81.0 MCH 28.4 MCHC 35.1 RDW 12.3 Plt Count 416 H MPV 9.7 Immature Gran % (Auto) 0.4 Neut % (Auto) 88.4 H Lymph % (Auto) 8.5 L [place] % (Auto) 2.4 Eos % (Auto) 0.0 Baso % (Auto) 0.3 Lymph # (Auto) 0.9 L [place] # (Auto) 0.3 Eos # (Auto) 0.0 Baso # (Auto) 0.0 Abs Immat Gran (auto) 0.04 H Absolute Neuts (auto) 9.5 H Absolute Nucleated RBC 0.000 Nucleated RBC % (auto) 0.0 Anion Gap 25 H Estim Creat Clear Calc 68.7 Estimated GFR 56 POC Glucose 367 H* Random Glucose 338 H Calcium 10.2 Total Bilirubin 0.7 Direct Bilirubin 0.3 AST 22 ALT 23 Alkaline Phosphatase 103 Total Protein 7.8 Albumin 4.5 Urine Color Urine Appearance Urine pH Ur Specific [place] Urine Protein Urine Glucose (UA) Urine Ketones Urine Blood Urine Nitrite Ur Leukocyte Esterase Urine RBC Urine WBC Ur Squamous Epith Cells Urine Bacteria Urine Mucus Urine Opiates Screen Ur Barbiturates Screen Ur Phencyclidine Scrn Ur Amphetamines Screen U Benzodiazepines Scrn Urine Cocaine Screen U Marijuana (THC) Screen Ethyl Alcohol Acetone, Qual Moderate H COVID-19 ([place]) COVID-19 [employer] 09/10/20 09/10/20 09/10/20 00:44 00:58 00:58 MCV MCH MCHC RDW Plt Count MPV Immature Gran % (Auto) Neut % (Auto) Lymph % (Auto) [place] % (Auto) Eos % (Auto) Baso % (Auto) Lymph # (Auto) [place] # (Auto) Eos # (Auto) Baso # (Auto) Abs Immat Gran (auto) Absolute Neuts (auto) Absolute Nucleated RBC Nucleated RBC % (auto) Anion Gap Estim Creat Clear Calc Estimated GFR POC Glucose Random Glucose Calcium Total Bilirubin Direct Bilirubin AST ALT Alkaline Phosphatase Total Protein Albumin Urine Color YELLOW Urine Appearance CLEAR Urine pH 6.0 Ur Specific [place] >= 1.030 H Urine Protein 1+ H Urine Glucose (UA) 500 H Urine Ketones >=80 Urine Blood TRACE Urine Nitrite NEG Ur Leukocyte Esterase NEG Urine RBC 1-4 Urine WBC 0 Ur Squamous Epith Cells TRACE Urine Bacteria TRACE Urine Mucus 1+ Urine Opiates Screen POSITIVE H Ur Barbiturates Screen Not Detected Ur Phencyclidine Scrn Not Detected Ur Amphetamines Screen Not Detected U Benzodiazepines Scrn Not Detected Urine Cocaine Screen POSITIVE H U Marijuana (THC) Screen Not Detected Ethyl Alcohol < 10 Acetone, Qual COVID-19 ([place]) COVID-19 [employer] 09/10/20 09/10/20 09/10/20 02:20 04:16 05:18 MCV MCH MCHC RDW Plt Count MPV Immature Gran % (Auto) Neut % (Auto) Lymph % (Auto) [place] % (Auto) Eos % (Auto) Baso % (Auto) Lymph # (Auto) [place] # (Auto) Eos # (Auto) Baso # (Auto) Abs Immat Gran (auto) Absolute Neuts (auto) Absolute Nucleated RBC Nucleated RBC % (auto) Anion Gap 26 H Estim Creat Clear Calc 69.8 Estimated GFR 57 POC Glucose 312 H 266 H Random Glucose 394 H* Calcium 9.3 D Total Bilirubin Direct Bilirubin AST ALT Alkaline Phosphatase Total Protein Albumin Urine Color Urine Appearance Urine pH Ur Specific [place] Urine Protein Urine Glucose (UA) Urine Ketones Urine Blood Urine Nitrite Ur Leukocyte Esterase Urine RBC Urine WBC Ur Squamous Epith Cells Urine Bacteria Urine Mucus Urine Opiates Screen Ur Barbiturates Screen Ur Phencyclidine Scrn Ur Amphetamines Screen U Benzodiazepines Scrn Urine Cocaine Screen U Marijuana (THC) Screen Ethyl Alcohol Acetone, Qual COVID-19 ([place]) COVID-Narrative [employer] 09/10/20 09/10/20 09/10/20 07:25 08:41 09:12 MCV MCH MCHC RDW Plt Count MPV Immature Gran % (Auto) Neut % (Auto) Lymph % (Auto) Luce % (Auto) Eos % (Auto) Baso % (Auto) Lymph # (Auto) Luce # (Auto) Eos # (Auto) Baso # (Auto) Abs Immat Gran (auto) Absolute Neuts (auto) Absolute Nucleated RBC Nucleated RBC % (auto) Anion Gap 25 H Estim Creat Clear Calc 66.3 Estimated GFR 54 POC Glucose 335 H Random Glucose 333 H Calcium 10.1 D Total Bilirubin Direct Bilirubin AST ALT Alkaline Phosphatase Total Protein Albumin Urine Color Urine Appearance Urine pH Ur Specific [place] Urine Protein Urine Glucose (UA) Urine Ketones Urine Blood Urine Nitrite Ur Leukocyte Esterase Urine RBC Urine WBC Ur Squamous Epith Cells Urine Bacteria Urine Mucus Urine Opiates Screen Ur Barbiturates Screen Ur Phencyclidine Scrn Ur Amphetamines Screen U Benzodiazepines Scrn Urine Cocaine Screen U Marijuana (THC) Screen Ethyl Alcohol Acetone, Qual COVID-19 ([place]) Negative COVID-Narrative [employer] See Note 09/10/20 09:37 MCV MCH MCHC RDW Plt Count MPV Immature Gran % (Auto) Neut % (Auto) Lymph % (Auto) Luce % (Auto) Eos % (Auto) Baso % (Auto) Lymph # (Auto) Luce # (Auto) Eos # (Auto) Baso # (Auto) Abs Immat Gran (auto) Absolute Neuts (auto) Absolute Nucleated RBC Nucleated RBC % (auto) Anion Gap Estim Creat Clear Calc Estimated GFR POC Glucose 301 H Random Glucose Calcium Total Bilirubin Direct Bilirubin AST ALT Alkaline Phosphatase Total Protein Albumin Urine Color Urine Appearance Urine pH Ur Specific [place] Urine Protein Urine Glucose (UA) Urine Ketones Urine Blood Urine Nitrite Ur Leukocyte Esterase Urine RBC Urine WBC Ur Squamous Epith Cells Urine Bacteria Urine Mucus Urine Opiates Screen Ur Barbiturates Screen Ur Phencyclidine Scrn Ur Amphetamines Screen U Benzodiazepines Scrn Urine Cocaine Screen U Marijuana (THC) Screen Ethyl Alcohol Acetone, Qual COVID-19 ([place]) COVID-19 Clin Com Imaging Radiologist's Impressions: Impressions Head CT 09/10/20 00:01 IMPRESSION: No acute intracranial pathology. Assessment and Plan (1) Substance abuse: Status: Acute Assessment: 50-year-old gentleman admitted with alteration of mental status and hyperglycemia secondary to polysubstance abuse and diabetic ketoacidosis requiring initiation of insulin drip Plan: Neuro: Toxic metabolic encephalopathy secondary to a combination of polysubstance abuse and diabetic ketoacidosis, expect to improve with resolution of acute intoxication and ketoacidosis. Cardiac: No acute issues. Underlying hypertension. Pulmonary: No acute issues. Renal: No acute issues. Endo: Diabetic ketoacidosis, continue insulin drip protocol. GI: No acute issues. ID: No acute issues Heme/Onc: No acute issues. Psych: No acute issues. Underlying depression. Miscellaneous: No acute issues. Underlying polysubstance abuse. Prophylaxis: Heparin Diet: NPO Critical care time spent: 45 minutes (2) DKA (diabetic ketoacidoses): Qualifiers: Diabetes mellitus type: type 1 Status: Acute (3) Toxic metabolic encephalopathy: Status: Acute Critical Care Time 45 minutes
[2020-09-10 10:51] LABS: Glucose, Whole Blood 280 mg/dL (60-115)
[2020-09-10] MEDS: cloNIDine 0.1 MG PATCH.TDWK TRANSDERMA (11:28)
[2020-09-10 13:03] LABS: Glucose, Whole Blood 175 mg/dL (60-115)
[2020-09-10 13:03] LABS: Glucose, Whole Blood 177 mg/dL (60-115)
[2020-09-10] MEDS: Insulin Regular/NS 100 UNIT/100 ML PLAST..BAG 9 UNIT IVCONT (13:11)
[2020-09-10 13:56] LABS: Glucose, Whole Blood 131 mg/dL (60-115)
[2020-09-10 14:45] LABS: Anion Gap 13 (12-20); Blood Urea Nitrogen 29 mg/dL (9-16); Calcium 9.8 mg/dL (8.4-10.2); Carbon Dioxide 26 mmol/L (22-29); Chloride 106 mmol/L (96-108); Creatinine Clr Calc Pharmacy 75.6; Estimated Glomerular Filt Rate > 60; Glucose Random 138 mg/dL (60-115); Potassium 3.5 mmol/L (3.3-5.1); Sodium 141 mmol/L (135-145)
[2020-09-10] MEDS: Insulin Glargine,Hum.rec.anlog 100 UNIT/ML 10 ML VIAL 30 UNIT SUBCUT (15:07)
[2020-09-10 15:12] LABS: Glucose, Whole Blood 127 mg/dL (60-115)
[2020-09-10 16:45] LABS: Glucose, Whole Blood 102 mg/dL (60-115)
[2020-09-10] MEDS: Buprenorphine/Naloxone 8/2 mg FILM 2 FILM SUBLINGUAL (17:07)
--- NOTE | 2020-09-10 17:13 | PC.NURSE ---
ED admit for DKA - arrived to unit at 1015 via stretcher A&O x4, pupils 2mm, PERRLA Tox positive for opiates & cocaine Sinus, HR 90-130's w/ activity T wave depressed on tele - MD notified POC down to 120-130, 1400 Gap down to 13 - repeat BMP at 2000 SBP 170's - Home dose Clonidine 0.1mg patch administered Pot Chld 10meq x8 doses ordered and administered - K 3.5 LS clear to dim throughout RR mid 30's, patient c/o of mild SOB, sPo2 maintaining high 90's Patient reports no longer SOB Insulin gtt titrated off per DKA protocol at 1600 Transitioned to sliding scale and Lantus 30u Fluids discontinued at 1600 per MD Started on Diabetic diet No BM Voiding in urinal - total o/p 360cc, yellow No skin integrity concerns 1700 - patient requesting to leave AMA due to worsening withdrawals MD notified and patient educate on risks of leaving AMA Home dose suboxone ordered and administered Patient agreeable to stay at this time
[2020-09-10 21:12] LABS: Anion Gap 20 (12-20); Blood Urea Nitrogen 27 mg/dL (9-16); Carbon Dioxide 18 mmol/L (22-29); Chloride 101 mmol/L (96-108); Creatinine Clr Calc Pharmacy 84.2; Estimated Glomerular Filt Rate > 60; Glucose Random 275 mg/dL (60-115); Sodium 135 mmol/L (135-145)
[2020-09-10 21:15] LABS: Glucose, Whole Blood 273 mg/dL (60-115)
[2020-09-10 21:44] LABS: Calcium 8.9 mg/dL (8.4-10.2)
[2020-09-10] MEDS: Insulin Regular/NS 100 UNIT/100 ML PLAST..BAG 7 UNIT IVCONT (22:18)
[2020-09-10 23:33] LABS: Glucose, Whole Blood 289 mg/dL (60-115)
[2020-09-11] VITALS (9 sets, daily range): BP systolic 154–173; BP diastolic 65–92; PULSE 76–94; RESP 20–34; TEMP 36.8–37.8; O2SAT 97–100; BMI 29.4
[2020-09-11 00:23] LABS: Glucose, Whole Blood 260 mg/dL (60-115)
[2020-09-11 01:25] LABS: Glucose, Whole Blood 220 mg/dL (60-115)
[2020-09-11] MEDS: LORazepam 2 MG/ML VIAL IVPUSH (01:38)
[2020-09-11] MEDS: Dextrose 5 % and Lactated Ring 1,000 ML 200 ML IVCONT (03:03)
[2020-09-11 03:26] LABS: Glucose, Whole Blood 176 mg/dL (60-115)
[2020-09-11 03:26] LABS: Glucose, Whole Blood 141 mg/dL (60-115)
--- NOTE | 2020-09-11 04:18 | PC.NURSE ---
Addendum entered by Jared Oliva RN 09/11/20 06:24: per icu applications support lead tp give lantus insulin per may and then d/c insulin drip and iv fluids 1 hour afterwards Original Note: CARE ASSUMED 23:15..AWAKE...ALERT..FLAT AFFECT...ABBOTT..REPOSITIONS SELF IN BED AD-LATOYA..D5LR 200 CC/HR ...INSULIN DRIP TITRATED PER MAY..INCREASED RESTLESSNESS OVERNIGHT..REQUESTS TO REMOVE EKG LEADS/GOWN D/T I'M HOT AND IT BOTHERS ME ...PREVIOUSLY RECEIVED SUBOXINE 3-11 SHIFT..ICU BRUSH FINISHER PRESENT AND UPDATED...ATIVAN 2 MG IV GIVEN...RESTFUL AFTERWARDS...AWAKE 4AM....STA AT BEDSIDE AND URINATED IN WASTE BASKET...INSTRUCTED/REVIEWED USE OF URINAL...STATED THE BASKET WORKS ..SETTLED SELF BACK FOR SLEEP....BP INTERMITTANTLY ELEVATED...BRUSH FINISHER AWARE...TO TREND BP..NSR..NO ECTOPY..DENIES NAUSEA OR PAIN.
[2020-09-11 04:47] LABS: Glucose, Whole Blood 155 mg/dL (60-115)
[2020-09-11 05:38] LABS: VBG Base Excess 3.8 mmol/L; VBG HCO3 26 mmol/L (22-26); VBG pCO2 32 mmHg; VBG pH 7.51 (7.32-7.43); VBG pO2 69 mmHg
[2020-09-11 05:39] LABS: Venous Blood Gas Refer to POC result
[2020-09-11 05:40] LABS: Basophils Percent Auto 0.1 % (0-2); Hematocrit 41.5 % (42-52); Hemoglobin 14.6 g/dl (14.0-18.0); Imm Gran Abs Auto 0.09 X10*3/uL (0.00-0.03); Imm Gran Pct Auto 0.4 % (0.0-0.4); Lymphocytes Absolute Auto 1.7 X10*3/uL (1.2-4.9); Lymphocytes Percent Auto 8.1 % (20-40); MANUAL DIFF FLAG SCAN; Mean Corpuscular HGB Conc 35.2 g/dl (31.0-36.0); Mean Corpuscular Hemoglobin 28.6 pg (27.0-33.0); Mean Corpuscular Volume 81.2 fL (80-98); Mean Platelet Volume 9.7 fL (9.4-12.4); Monocytes Absolute Auto 1.8 X10*3/uL (0.1-1.2); Monocytes Percent Auto 8.3 % (2-11); Neutrophils Absolute Auto 17.7 X10*3/uL (2.0-8.3); Neutrophils Percent Auto 83.1 % (45-73); Platelet Count 352 X10*3/uL (160-400); Red Blood Count 5.11 X10*6/uL (4.60-5.80); Red Cell Distribution Width 12.4 % (11.0-16.0); SCAN SMEAR FLAG 1; White Blood Count 21.3 X10*3/uL (4.8-10.8)
[2020-09-11 05:40] LABS: Glucose, Whole Blood 172 mg/dL (60-115)
[2020-09-11 05:57] LABS: SLIDE REVIEW VERIFIED
[2020-09-11 06:08] LABS: Alanine Aminotransferase 16 U/L (0-40); Albumin Level 3.7 g/dL (3.5-5.0); Alkaline Phosphatase 77 U/L (39-117); Anion Gap 16 (12-20); Aspartate Amino Transferase 23 U/L (5-37); Blood Urea Nitrogen 19 mg/dL (9-16); Calcium 8.9 mg/dL (8.4-10.2); Carbon Dioxide 22 mmol/L (22-29); Chloride 101 mmol/L (96-108); Creatinine Clr Calc Pharmacy 111.5; Estimated Glomerular Filt Rate > 60; Glucose Random 140 mg/dL (60-115); Magnesium 1.7 mg/dL (1.6-2.6); Phosphorus 2.8 mg/dL (2.7-4.5); Potassium 3.7 mmol/L (3.3-5.1); Sodium 135 mmol/L (135-145); Total Protein 6.2 g/dL (6.5-8.0)
[2020-09-11] MEDS: Insulin Glargine,Hum.rec.anlog 100 UNIT/ML 10 ML VIAL 30 UNIT SUBCUT (06:46)
[2020-09-11 06:52] LABS: Glucose, Whole Blood 126 mg/dL (60-115)
[2020-09-11 07:41] LABS: Glucose, Whole Blood 150 mg/dL (60-115)
[2020-09-11] MEDS: Insulin Lispro 100 UNIT/ML 3 ML VIAL SUBCUT (07:51)
[2020-09-11] MEDS: Heparin Sodium,Porcine 5,000 UNIT/ML VIAL 5000 UNIT SUBCUT (07:51)
[2020-09-11] MEDS: Buprenorphine/Naloxone 8/2 mg FILM 2 FILM SUBLINGUAL (08:44)
[2020-09-11] MEDS: Insulin Glargine,Hum.rec.anlog 100 UNIT/ML 10 ML VIAL 20 UNIT SUBCUT (08:44)
[2020-09-11 09:49] LABS: Glucose, Whole Blood 99 mg/dL (60-115)
[2020-09-11 10:39] LABS: Anion Gap 11 (12-20); Blood Urea Nitrogen 16 mg/dL (9-16); Carbon Dioxide 26 mmol/L (22-29); Chloride 103 mmol/L (96-108); Creatinine Clr Calc Pharmacy 126.3; Estimated Glomerular Filt Rate > 60; Glucose Random 96 mg/dL (60-115); Potassium 3.5 mmol/L (3.3-5.1); Sodium 136 mmol/L (135-145)
--- NOTE | 2020-09-11 10:50 | P.DS_ITS ---
DS: Providers Provider Date of Service: 09/11/20 Date of admission: 09/10/20 08:09 Primary care physician: Unknown Physician DS: Diagnosis Discharge Diagnosis (1) Substance abuse: Status: Acute (2) DKA (diabetic ketoacidoses): Status: Acute (3) Toxic metabolic encephalopathy: Status: Acute DS: Medications Discharge Medications Home Medications: Home Medications Medication Instructions Recorded Confirmed buspirone 10 mg tablet 10 mg PO TID 02/09/20 07/05/20 clonidine HCl 0.1 mg tablet 0.1 mg PO BID PRN 02/09/20 07/05/20 insulin glargine 100 unit/mL (3 unit SUBCUT 02/09/20 07/05/20 mL) subcutaneous pen quetiapine 50 mg tablet 50 mg PO BEDTIME 02/09/20 07/05/20 trazodone 100 mg tablet 100 mg PO BEDTIME PRN 02/09/20 07/05/20 Previous Rx's Medication Instructions Recorded buprenorphine 8 mg-naloxone 2 mg 2 film SUBLINGUAL DAILY 14 Days 07/05/20 sublingual film #28 ea DS: Summary Hospital Course Hospital Course: 50-year-old gentleman with underlying history of polysubstance abuse including opiates and cocaine, on Suboxone, diabetes mellitus, hypertension, and depression admitted on 09/10/2020 with 1 day history of alteration of mental status and hyperglycemia. Patient states that he has been using cocaine. On ER evaluation he was noted to be in diabetic ketoacidosis. His CT head was negative for an acute pathology. Patient has been started on IV fluid resuscitation and insulin drip and admitted to intensive care unit. Patient has been titrated of insulin drip and started on subcutaneous insulin on 620 to at approximately 2:00 p.m.. However, his anion gap has reopened repeat check at approximately 6:00 p.m. on 09/10/2020, he has been restarted on insulin drip and has been titrated off again at approximately 8:00 a.m. 09/11/2020. Patient left against medical advise on 09/11/2020 at approximately 10:30 a.m.. I have explained to the patient that leaving early in his course of treatment can lead to an untimely . Patient indicated the he was aware and fully accepted that potential responsibility. Time Spent with Patient Time attestation: Total time spent providing and/or coordinating discharge se rvices: Discharge coordination time: Less than 30 minutes Quality: Stroke Does the patient have a stroke diagnosis?: No Physical Exam Vital Signs: Vital Signs: Last Vital Signs Temp 98.3 F 09/11/20 08:00 Pulse 76 09/11/20 09:00 Resp 29 H 09/11/20 09:00 BP 165/92 H 09/11/20 09:00 Pulse Ox 98 09/11/20 09:00 Body Mass Index 29.4 Const: General: no acute distress, alert and awake Eyes: Sclerae: sclerae normal EOM: EOMs intact bilaterally Neck: Neck: Yes no lymphadenopathy, Yes trachea midline and Yes supple Resp: Effort & Inspection: normal respiratory effort and no respiratory distress Auscultation: clear to auscultation bilaterally Cardio: Rate: regular rate Rhythm: regular rhythm Heart sounds: no gallops, no murmurs and no rubs GI: Palpation (GI): Soft to palpation and Other GI palpation findings present ( Nontender) Auscultation: normal bowel sounds Extrem: General: Yes no pedal edema, No clubbing and No cyanosis DS: Data Data Completed and Pending Labs on day of discharge: Laboratory Results - last 24 hr 09/10/20 09/10/20 09/10/20 10:48 11:57 13:01 WBC RBC Hgb Hct MCV MCH MCHC RDW Plt Count MPV Immature Gran % (Auto) Neut % (Auto) Lymph % (Auto) [place] % (Auto) Eos % (Auto) Baso % (Auto) Lymph # (Auto) [place] # (Auto) Eos # (Auto) Baso # (Auto) Abs Immat Gran (auto) Absolute Neuts (auto) Absolute Nucleated RBC Nucleated RBC % (auto) Smear Tech's Comments VBG pH VBG pCO2 VBG pO2 VBG HCO3 VBG O2 Saturation VBG Base Excess Sodium Potassium Chloride Carbon Dioxide Anion Gap BUN Creatinine Estim Creat Clear Calc Estimated GFR POC Glucose 280 H 175 H 177 H Random Glucose Calcium Phosphorus Magnesium Total Bilirubin AST ALT Alkaline Phosphatase Total Protein Albumin 09/10/20 09/10/20 09/10/20 13:53 14:06 15:00 WBC RBC Hgb Hct MCV MCH MCHC RDW Plt Count MPV Immature Gran % (Auto) Neut % (Auto) Lymph % (Auto) [place] % (Auto) Eos % (Auto) Baso % (Auto) Lymph # (Auto) [place] # (Auto) Eos # (Auto) Baso # (Auto) Abs Immat Gran (auto) Absolute Neuts (auto) Absolute Nucleated RBC Nucleated RBC % (auto) Smear Tech's Comments VBG pH VBG pCO2 VBG pO2 VBG HCO3 VBG O2 Saturation VBG Base Excess Sodium 141 Potassium 3.5 Chloride 106 Carbon Dioxide 26 Anion Gap 13 BUN 29 H Creatinine 1.18 Estim Creat Clear Calc 75.6 Estimated GFR > 60 POC Glucose 131 H 127 H Random Glucose 138 H D Calcium 9.8 Phosphorus Magnesium Total Bilirubin AST ALT Alkaline Phosphatase Total Protein Albumin 09/10/20 09/10/20 09/10/20 16:41 20:11 21:12 WBC RBC Hgb Hct MCV MCH MCHC RDW Plt Count MPV Immature Gran % (Auto) Neut % (Auto) Lymph % (Auto) [place] % (Auto) Eos % (Auto) Baso % (Auto) Lymph # (Auto) [place] # (Auto) Eos # (Auto) Baso # (Auto) Abs Immat Gran (auto) Absolute Neuts (auto) Absolute Nucleated RBC Nucleated RBC % (auto) Smear Tech's Comments VBG pH VBG pCO2 VBG pO2 VBG HCO3 VBG O2 Saturation VBG Base Excess Sodium 135 Potassium 4.0 Chloride 101 Carbon Dioxide 18 L Anion Gap 20 BUN 27 H Creatinine 1.06 Estim Creat Clear Calc 84.2 Estimated GFR > 60 POC Glucose 102 273 H Random Glucose 275 H D Calcium 8.9 D Phosphorus Magnesium Total Bilirubin AST ALT Alkaline Phosphatase Total Protein Albumin 09/10/20 09/11/20 09/11/20 23:29 00:19 01:23 WBC RBC Hgb Hct MCV MCH MCHC RDW Plt Count MPV Immature Gran % (Auto) Neut % (Auto) Lymph % (Auto) [place] % (Auto) Eos % (Auto) Baso % (Auto) Lymph # (Auto) [place] # (Auto) Eos # (Auto) Baso # (Auto) Abs Immat Gran (auto) Absolute Neuts (auto) Absolute Nucleated RBC Nucleated RBC % (auto) Smear Tech's Comments VBG pH VBG pCO2 VBG pO2 VBG HCO3 VBG O2 Saturation VBG Base Excess Sodium Potassium Chloride Carbon Dioxide Anion Gap BUN Creatinine Estim Creat Clear Calc Estimated GFR POC Glucose 289 H 260 H 220 H Random Glucose Calcium Phosphorus Magnesium Total Bilirubin AST ALT Alkaline Phosphatase Total Protein Albumin 09/11/20 09/11/20 09/11/20 02:26 03:22 04:41 WBC RBC Hgb Hct MCV MCH MCHC RDW Plt Count MPV Immature Gran % (Auto) Neut % (Auto) Lymph % (Auto) [place] % (Auto) Eos % (Auto) Baso % (Auto) Lymph # (Auto) [place] # (Auto) Eos # (Auto) Baso # (Auto) Abs Immat Gran (auto) Absolute Neuts (auto) Absolute Nucleated RBC Nucleated RBC % (auto) Smear Tech's Comments VBG pH VBG pCO2 VBG pO2 VBG HCO3 VBG O2 Saturation VBG Base Excess Sodium Potassium Chloride Carbon Dioxide Anion Gap BUN Creatinine Estim Creat Clear Calc Estimated GFR POC Glucose 176 H 141 H 155 H Random Glucose Calcium Phosphorus Magnesium Total Bilirubin AST ALT Alkaline Phosphatase Total Protein Albumin 09/11/20 09/11/20 09/11/20 05:29 05:29 05:30 WBC 21.3 H RBC 5.11 Hgb 14.6 Hct 41.5 L MCV 81.2 MCH 28.6 MCHC 35.2 RDW 12.4 Plt Count 352 MPV 9.7 Immature Gran % (Auto) 0.4 Neut % (Auto) 83.1 H Lymph % (Auto) 8.1 L [place] % (Auto) 8.3 Eos % (Auto) 0.0 Baso % (Auto) 0.1 Lymph # (Auto) 1.7 [place] # (Auto) 1.8 H Eos # (Auto) 0.0 Baso # (Auto) 0.0 Abs Immat Gran (auto) 0.09 H Absolute Neuts (auto) 17.7 H Absolute Nucleated RBC 0.000 Nucleated RBC % (auto) 0.0 Smear Tech's Comments VERIFIED VBG pH 7.51 H VBG pCO2 32 VBG pO2 69 VBG HCO3 26 VBG O2 Saturation 93.0 VBG Base Excess 3.8 Sodium 135 Potassium 3.7 Chloride 101 Carbon Dioxide 22 Anion Gap 16 BUN 19 H Creatinine 0.80 Estim Creat Clear Calc 111.5 Estimated GFR > 60 POC Glucose Random Glucose 140 H D Calcium 8.9 Phosphorus 2.8 Magnesium 1.7 Total Bilirubin 1.0 AST 23 ALT 16 Alkaline Phosphatase 77 D Total Protein 6.2 L D Albumin 3.7 09/11/20 09/11/20 09/11/20 05:37 06:50 07:38 WBC RBC Hgb Hct MCV MCH MCHC RDW Plt Count MPV Immature Gran % (Auto) Neut % (Auto) Lymph % (Auto) [place] % (Auto) Eos % (Auto) Baso % (Auto) Lymph # (Auto) [place] # (Auto) Eos # (Auto) Baso # (Auto) Abs Immat Gran (auto) Absolute Neuts (auto) Absolute Nucleated RBC Nucleated RBC % (auto) Smear Tech's Comments VBG pH VBG pCO2 VBG pO2 VBG HCO3 VBG O2 Saturation VBG Base Excess Sodium Potassium Chloride Carbon Dioxide Anion Gap BUN Creatinine Estim Creat Clear Calc Estimated GFR POC Glucose 172 H 126 H 150 H Random Glucose Calcium Phosphorus Magnesium Total Bilirubin AST ALT Alkaline Phosphatase Total Protein Albumin 09/11/20 09/11/20 09:42 09:45 WBC RBC Hgb Hct MCV MCH MCHC RDW Plt Count MPV Immature Gran % (Auto) Neut % (Auto) Lymph % (Auto) [place] % (Auto) Eos % (Auto) Baso % (Auto) Lymph # (Auto) [place] # (Auto) Eos # (Auto) Baso # (Auto) Abs Immat Gran (auto) Absolute Neuts (auto) Absolute Nucleated RBC Nucleated RBC % (auto) Smear Tech's Comments VBG pH VBG pCO2 VBG pO2 VBG HCO3 VBG O2 Saturation VBG Base Excess Sodium 136 Potassium 3.5 Chloride 103 Carbon Dioxide 26 Anion Gap 11 L BUN 16 Creatinine 0.73 Estim Creat Clear Calc 126.3 Estimated GFR > 60 POC Glucose 99 Random Glucose 96 Calcium 9.0 Phosphorus Magnesium Total Bilirubin AST ALT Alkaline Phosphatase Total Protein Albumin Discharge Plan Discharge Patient Disposition: Left Against Medical Advice Discharge Diagnosis: Diabetic ketoacidosis Polysubstance abuse Referrals: Physician,Unknown [Primary Care Provider] - 1 Week Discharge Medications: No Action buprenorphine-naloxone [Suboxone] 8-2 mg film 2 film sublingual DAILY 14 Days Qty: 28 RF: 0 quetiapine 50 mg tablet 50 mg PO BEDTIME RF: 0 Lantus Solostar U-100 Insulin 100 unit/mL (3 mL) insulin pen subcut RF: 0 buspirone 10 mg tablet 10 mg PO TID RF: 0 clonidine HCl 0.1 mg tablet 0.1 mg PO BID PRN (Reason: anxiety) RF: 0 trazodone 100 mg tablet 100 mg PO BEDTIME PRN (Reason: insomnia) RF: 0 Discharge Orders: Discharge Order (Routine); Ordered 09/11/20 Ordered By: Krishna Harris Care Plan Goals: Resume home medications Health Concerns: Patient left against medical advice Plan of Treatment: Resume home medications Assessment: Patient left against medical advise Patient Instructions: Polysubstance Abuse (ED), Diabetic Hyperglycemia (ED) Discharge Date/Time: 09/11/20 10:20
--- NOTE | 2020-09-11 10:56 | MHC.CM.PN ---
Pt in ICU with DKA: sleepy during assessment: states he is independent with all care needs, lives with spouse and family, PCP is Dr. Ling and he has no barriers to obtaining medications. Discussed IVDA and compliance with DM management. Pt on Suboxone but won't give details into program: states he has all DM supplies/meds but forgets at times. Recommended consult from CARE team re: continued drug use: Family can transport home: IMM given
== END 2020-09-11 10:20 | disposition left against medical advice (07) | DRG 637 ==
LOC: HO.ED 09-10 08:48 → HO.ICU 09-10 08:54
PROVIDERS: Emergency Medicine; Student in an Organized Health Care Education/Training Program; Admitting Provider Internal Medicine Pulmonary Disease; Emergency Provider Emergency Medicine Emergency Medical Services; PCP Internal Medicine; Visit Provider Internal Medicine Pulmonary Disease
DX: E10.10 Type 1 diabetes mellitus with ketoacidosis without coma (principal); G92 Toxic encephalopathy; F11.20 Opioid dependence, uncomplicated; I10 Essential (primary) hypertension; F32.9 Major depressive disorder, single episode, unspecified; F17.210 Nicotine dependence, cigarettes, uncomplicated; Z71.6 Tobacco abuse counseling; Z20.822 Contact with and (suspected) exposure to COVID-19; Z88.0 Allergy status to penicillin; Z79.4 Long term (current) use of insulin; Z79.899 Other long term (current) drug therapy
CPT/HCPCS: 36415; 70450; 80048; 80053; 80076; 80307; 81001; 82009; 82077; 82947; 83735; 84100; 85025; 87635; 93005; 99285; J1200; J2060; J2405; J2765

== ENCOUNTER 2020-09-13 10:40 | Inpatient (IN) | payer OTHER, SELFPAY ==
[2020-09-13] VITALS (23 sets, daily range): BP systolic 135–210; BP diastolic 74–104; PULSE 60–103; RESP 16–20; TEMP 36.4–37.1; O2SAT 94–100; BMI 25.2
--- NOTE | ~2020-09-13 | CT_ITS ---
EXAMINATION: CT ABDOMEN AND PELVIS WITHOUT CONTRAST CLINICAL INFORMATION: Constipation, vomiting, rule out small bowel obstruction COMPARISON: CT abdomen and pelvis without contrast 11/14/2019 TECHNIQUE: Multidetector volumetric imaging was performed from the superior aspect of the liver through the pubic symphysis. Sagittal and coronal reformatted images were obtained on the technologist's workstation. This CT examination was performed using dose optimization techniques as appropriate, variously including the following: *Automated exposure control *Adjustment of mA and/or kV according to patient size (this includes techniques or standardized protocols for targeted exams where dose is matched to indication/reason for exam; i.e. extremities or head) *Use of iterative reconstruction technique DLP: 567 mGy-cm FINDINGS: LUNG BASES: Minimal atelectatic changes, right lung base. The heart size is normal. There is a small hiatal hernia. LIVER, GALLBLADDER, AND BILIARY TREE: The liver is normal in size, shape, and attenuation. No focal hepatic lesion or biliary ductal dilatation is present. Minimal perihepatic fluid seen. The gallbladder is unremarkable with no evidence of radiopaque gallstones, gallbladder wall thickening, or obvious pericholecystic inflammatory changes. PANCREAS: Unremarkable. SPLEEN: There is punctate calcification in the spleen. Otherwise unremarkable. ADRENAL GLANDS: Unremarkable. KIDNEYS AND URETERS: The kidneys are normal in size, shape, and attenuation. 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 No hydronephrosis, hydroureter, or calculi seen. No perinephric stranding. BLADDER: Unremarkable. GASTROINTESTINAL TRACT: Limited exam due to lack of oral contrast. There is scattered stool and gas seen throughout the colon without distention. The small bowel loops are normal caliber. Appendix is not visualized with certainty. There is mild small bowel mesenteric haziness likely edema. There is punctate free gas seen in the right upper mid quadrant on axial image 39/3 and midline 32/3 and 19/3. The stomach is nondistended. There is minimal free fluid. ABDOMINAL WALL: No significant hernia is appreciated. LYMPH NODES: Normal. VASCULAR: Unremarkable. PELVIC VISCERA: There is a small amount of free fluid in the pelvis. OSSEOUS STRUCTURES: No lytic or sclerotic process seen. CT/CT abdomen pelvis wo con IMPRESSION: 1. No acute intra-abdominal process seen. 2. Mild free fluid in the pelvis of unknown etiology. Punctate free air seen in the right upper quadrant suspicious for bowel perforation. The exact site is not known but presumed duodenal perforation. Lack of IV and oral contrast restricts evaluation. Results were called immediately to Debbi Meza in ED by phone at 12:19 PM.
--- NOTE | 2020-09-13 10:43 | ED.ABDPAIN ---
HPI - Abdominal Pain General Chief Complaint: Abdominal Pain Stated Complaint: abd pain Time Seen by Provider: 09/13/20 10:43 Source: patient, EMS and old records reviewed Mode of arrival: EMS Limitations: other (vague historian, very limited) History of Present Illness HPI narrative: 50 yo male with hx of IDDM and opiate use disorder here with a day of nausea, vomiting, abdominal pain constipation, withdrawing from heroin last used 3 hours ago, denies taking suboxone or narcan today elicited complaint: abdominal pain Pertinent past history: other (opiate use disorder) Onset (ago): day(s) (1) Pain Consistency: constant Location: diffuse Severity: moderate Quality: cramping Radiation: none Migration to: no migration Exacerbating factors: nothing Context: other (states he is withdrawing from heroin) Associated symptoms: nausea, vomiting and constipation Related Data Home Medications Medication Instructions Recorded Confirmed clonidine HCl 0.1 mg tablet 0.1 mg PO BID PRN 02/09/20 09/13/20 insulin glargine 100 unit/mL (3 40 unit SUBCUT BEDTIME 02/09/20 09/13/20 mL) subcutaneous pen trazodone 100 mg tablet 100 mg PO BEDTIME PRN 02/09/20 09/13/20 hydroxyzine HCl 1 tab PO BID PRN 09/13/20 09/13/20 insulin aspart U-100 [Novolog See Protocol SUBCUT DIRECTED 09/13/20 09/13/20 Flexpen U-100 Insulin] quetiapine 1 tab PO BEDTIME 09/13/20 09/13/20 Allergies Allergy/AdvReac Type Severity Reaction Status Date / Time Penicillins Allergy Unknown UNKNOWN Verified 07/05/20 09:49 Review of Systems Review of Systems Constitutional : No Weight loss, No Fever, pos Chills ENT/Mouth : No sore throat, No Rhinorrhea Eyes: No Swelling, No Redness Cardiovascular : No Chest Pain, No SOB, NoEdema Respiratory : No Cough, No Sputum, No Wheezing Gastrointestinal : Positive Nausea, Positive Vomiting, no Diarrhea, positive abdominal Pain, No Hematochezia, No Melena, pos constipation Genitourinary : No Dysuria, No Urinary Frequency, No Hematuria, No Urgency Musculoskeletal : No joint pain, No Myalgias, No Joint Swelling Skin : No Skin Lesions, No rash Neuro : No Weakness, No Numbness, No Dizziness, No Headache Psych : No Anxiety/Panic, No Depression Heme/Lymph: No Bruising, No Lymphadenopathy Endocrine : No Polyuria, No Polydipsia All other systems reviewed and are negative. Physical Exam Vital Signs: Vital Signs: Last Vital Signs Temp 97.6 F 09/13/20 15:50 Pulse 71 09/13/20 15:55 Resp 20 09/13/20 16:20 BP 135/74 09/13/20 15:55 Pulse Ox 100 09/13/20 15:55 Body Mass Index 25.2 Appearance: Alert. Oriented X3. Anxious mild acute distress. Whispering his answers Eyes: Pupils equal, round and reactive to light. ENT: Pharynx dry MM Neck: Normal inspection. Neck supple. CVS: Normal heart rate and rhythm. Pulses normal. Respiratory: No respiratory distress. Breath sounds normal. Abdomen: Soft and moderate diffuse ttp no rebound our guarding. Skin: Skin warm and diaphoretic. pale skin color. Normal skin turgor. Extremities: No lower extremity edema. No calf ttp Neuro: Oriented X 3. No motor deficit. No sensory deficit. Course Course Course Narrative: call to surgery 1222pm after radiology called stated perforation and free fluid ?duodenum, I have ordered IV abx as well as protonix, patient on repeat exam tells me that he took advil PM today but not everyday repeat call to surgery to find out who is covering provider 1237pm messages sent to Dr. Sandoval and Arianna to find out who is covering provider 1238pm after talking to answering service and they are unsure who is on Dr. Keller attempting to find who is on for general surgery at this time at 1244 she states it is Dr. Bermudez and he will call back MDM - Abdominal Pain MDM Narrative Medical decision making narrative: 50 yo male with hx of IDDM, opiate use disorder just left ICU AMA on 09/11 with DKA comes back today states he is in so much pain and nausea vomiting he is a very poor historian and whispering during the interview he tells me he is withdrawing from heroin and last used 3 hours ago, he is diaphoretic anxious, suspect opiate withdrawal, labs, IVF, supportive medications, CT Scan for obstruction denies prior abdominal surgeries dispo per results and findings, he is unsure he wants to go back on suboxone Lab Data Result diagrams: 09/13/20 11:04 09/13/20 11:04 Labs: Lab Results 09/13/20 09/13/20 09/13/20 Range/Units 11:04 11:04 11:04 WBC 5.3 (4.8-10.8) X10*3/uL RBC 5.32 (4.60-5.80) X10*6/uL Hgb 15.2 (14.0-18.0) g/dl Hct 44.3 (42-52) % MCV 83.3 (80-98) fL MCH 28.6 (27.0-33.0) pg MCHC 34.3 (31.0-36.0) g/dl RDW 12.2 (11.0-16.0) % Plt Count 323 (160-400) X10*3/uL MPV 10.0 (9.4-12.4) fL Immature Gran % (Auto) 0.2 (0.0-0.4) % Neut % (Auto) 58.8 (45-73) % Lymph % (Auto) 33.5 (20-40) % [place] % (Auto) 6.4 (2-11) % Eos % (Auto) 0.7 (0-4) % Baso % (Auto) 0.4 (0-2) % Lymph # (Auto) 1.8 (1.2-4.9) X10*3/uL [place] # (Auto) 0.3 (0.1-1.2) X10*3/uL Eos # (Auto) 0.0 (0.0-0.4) X10*3/uL Baso # (Auto) 0.0 (0.0-0.2) X10*3/uL Abs Immat Gran (auto) 0.01 (0.00-0.03) X10*3/uL Absolute Neuts (auto) 3.1 (2.0-8.3) X10*3/uL Absolute Nucleated RBC 0.000 (0.0-0.012) X10*3/uL Nucleated RBC % (auto) 0.0 (0.0-0.2) /100WBC PT (10.8-13.0) SEC INR (0.9-1.1) APTT (24.1-38.0) SEC Hold Blue Top VBG pH (7.32-7.43) VBG pCO2 mmHg VBG pO2 mmHg VBG HCO3 (22-26) mmol/L VBG O2 Saturation % VBG Base Excess mmol/L Sodium 133 L (135-145) mmol/L Potassium 4.0 (3.3-5.1) mmol/L Chloride 100 (96-108) mmol/L Carbon Dioxide 27 (22-29) mmol/L Anion Gap 10 L (12-20) BUN 21 H (9-16) mg/dL Creatinine 0.98 (0.5-1.4) mg/dL Estim Creat Clear Calc 90.1 Estimated GFR > 60 Random Glucose 242 H D (60-115) mg/dL Lactic Acid (0.5-2.0) mmol/L Calcium 9.0 (8.4-10.2) mg/dL Magnesium (1.6-2.6) mg/dL Total Bilirubin (0.0-1.0) mg/dL Direct Bilirubin (0.0-0.5) mg/dL AST (5-37) U/L ALT (0-40) U/L Alkaline Phosphatase (39-117) U/L Troponin I High Sens (<3.5-35.0) ng/L Total Protein (6.5-8.0) g/dL Albumin (3.5-5.0) g/dL Lipase (8-78) U/L Ethyl Alcohol mg/dL Acetone, Qual Negative (Negative) COVID-19 ([facility]) Negative (Negative) COVID-19 Clin Com See Note Blood Type Antibody Screen 09/13/20 09/13/20 09/13/20 Range/Units 11:04 11:04 11:04 WBC (4.8-10.8) X10*3/uL RBC (4.60-5.80) X10*6/uL Hgb (14.0-18.0) g/dl Hct (42-52) % MCV (80-98) fL MCH (27.0-33.0) pg MCHC (31.0-36.0) g/dl RDW (11.0-16.0) % Plt Count (160-400) X10*3/uL MPV (9.4-12.4) fL Immature Gran % (Auto) (0.0-0.4) % Neut % (Auto) (45-73) % Lymph % (Auto) (20-40) % [place] % (Auto) (2-11) % Eos % (Auto) (0-4) % Baso % (Auto) (0-2) % Lymph # (Auto) (1.2-4.9) X10*3/uL [place] # (Auto) (0.1-1.2) X10*3/uL Eos # (Auto) (0.0-0.4) X10*3/uL Baso # (Auto) (0.0-0.2) X10*3/uL Abs Immat Gran (auto) (0.00-0.03) X10*3/uL Absolute Neuts (auto) (2.0-8.3) X10*3/uL Absolute Nucleated RBC (0.0-0.012) X10*3/uL Nucleated RBC % (auto) (0.0-0.2) /100WBC PT 11.1 (10.8-13.0) SEC INR 0.9 (0.9-1.1) APTT 27.2 (24.1-38.0) SEC Hold Blue Top SEE NOTE VBG pH (7.32-7.43) VBG pCO2 mmHg VBG pO2 mmHg VBG HCO3 (22-26) mmol/L VBG O2 Saturation % VBG Base Excess mmol/L Sodium (135-145) mmol/L Potassium (3.3-5.1) mmol/L Chloride (96-108) mmol/L Carbon Dioxide (22-29) mmol/L Anion Gap (12-20) BUN (9-16) mg/dL Creatinine (0.5-1.4) mg/dL Estim Creat Clear Calc Estimated GFR Random Glucose (60-115) mg/dL Lactic Acid 1.4 (0.5-2.0) mmol/L Calcium (8.4-10.2) mg/dL Magnesium 2.0 (1.6-2.6) mg/dL Total Bilirubin 0.6 (0.0-1.0) mg/dL Direct Bilirubin 0.2 (0.0-0.5) mg/dL AST 16 (5-37) U/L ALT 17 (0-40) U/L Alkaline Phosphatase 83 (39-117) U/L Troponin I High Sens (<3.5-35.0) ng/L Total Protein 6.2 L (6.5-8.0) g/dL Albumin 3.8 (3.5-5.0) g/dL Lipase 7 L (8-78) U/L Ethyl Alcohol mg/dL Acetone, Qual (Negative) COVID-19 ([facility]) (Negative) COVID-19 Clin Com Blood Type Antibody Screen 09/13/20 09/13/20 09/13/20 Range/Units 11:04 11:04 11:04 WBC (4.8-10.8) X10*3/uL RBC (4.60-5.80) X10*6/uL Hgb (14.0-18.0) g/dl Hct (42-52) % MCV (80-98) fL MCH (27.0-33.0) pg MCHC (31.0-36.0) g/dl RDW (11.0-16.0) % Plt Count (160-400) X10*3/uL MPV (9.4-12.4) fL Immature Gran % (Auto) (0.0-0.4) % Neut % (Auto) (45-73) % Lymph % (Auto) (20-40) % [place] % (Auto) (2-11) % Eos % (Auto) (0-4) % Baso % (Auto) (0-2) % Lymph # (Auto) (1.2-4.9) X10*3/uL [place] # (Auto) (0.1-1.2) X10*3/uL Eos # (Auto) (0.0-0.4) X10*3/uL Baso # (Auto) (0.0-0.2) X10*3/uL Abs Immat Gran (auto) (0.00-0.03) X10*3/uL Absolute Neuts (auto) (2.0-8.3) X10*3/uL Absolute Nucleated RBC (0.0-0.012) X10*3/uL Nucleated RBC % (auto) (0.0-0.2) /100WBC PT (10.8-13.0) SEC INR (0.9-1.1) APTT (24.1-38.0) SEC Hold Blue Top VBG pH 7.38 (7.32-7.43) VBG pCO2 35 mmHg VBG pO2 46 mmHg VBG HCO3 21 L (22-26) mmol/L VBG O2 Saturation 75.0 % VBG Base Excess -3.0 mmol/L Sodium (135-145) mmol/L Potassium (3.3-5.1) mmol/L Chloride (96-108) mmol/L Carbon Dioxide (22-29) mmol/L Anion Gap (12-20) BUN (9-16) mg/dL Creatinine (0.5-1.4) mg/dL Estim Creat Clear Calc Estimated GFR Random Glucose (60-115) mg/dL Lactic Acid (0.5-2.0) mmol/L Calcium (8.4-10.2) mg/dL Magnesium (1.6-2.6) mg/dL Total Bilirubin (0.0-1.0) mg/dL Direct Bilirubin (0.0-0.5) mg/dL AST (5-37) U/L ALT (0-40) U/L Alkaline Phosphatase (39-117) U/L Troponin I High Sens < 3.5 (<3.5-35.0) ng/L Total Protein (6.5-8.0) g/dL Albumin (3.5-5.0) g/dL Lipase (8-78) U/L Ethyl Alcohol < 10 mg/dL Acetone, Qual (Negative) COVID-19 ([place]) (Negative) COVID-19 Clin Com Blood Type Antibody Screen 09/13/20 09/13/20 Range/Units 12:48 12:48 WBC (4.8-10.8) X10*3/uL RBC (4.60-5.80) X10*6/uL Hgb (14.0-18.0) g/dl Hct (42-52) % MCV (80-98) fL MCH (27.0-33.0) pg MCHC (31.0-36.0) g/dl RDW (11.0-16.0) % Plt Count (160-400) X10*3/uL MPV (9.4-12.4) fL Immature Gran % (Auto) (0.0-0.4) % Neut % (Auto) (45-73) % Lymph % (Auto) (20-40) % [place] % (Auto) (2-11) % Eos % (Auto) (0-4) % Baso % (Auto) (0-2) % Lymph # (Auto) (1.2-4.9) X10*3/uL [place] # (Auto) (0.1-1.2) X10*3/uL Eos # (Auto) (0.0-0.4) X10*3/uL Baso # (Auto) (0.0-0.2) X10*3/uL Abs Immat Gran (auto) (0.00-0.03) X10*3/uL Absolute Neuts (auto) (2.0-8.3) X10*3/uL Absolute Nucleated RBC (0.0-0.012) X10*3/uL Nucleated RBC % (auto) (0.0-0.2) /100WBC PT (10.8-13.0) SEC INR (0.9-1.1) APTT (24.1-38.0) SEC Hold Blue Top VBG pH (7.32-7.43) VBG pCO2 mmHg VBG pO2 mmHg VBG HCO3 (22-26) mmol/L VBG O2 Saturation % VBG Base Excess mmol/L Sodium (135-145) mmol/L Potassium (3.3-5.1) mmol/L Chloride (96-108) mmol/L Carbon Dioxide (22-29) mmol/L Anion Gap (12-20) BUN (9-16) mg/dL Creatinine (0.5-1.4) mg/dL Estim Creat Clear Calc Estimated GFR Random Glucose (60-115) mg/dL Lactic Acid 1.3 (0.5-2.0) mmol/L Calcium (8.4-10.2) mg/dL Magnesium (1.6-2.6) mg/dL Total Bilirubin (0.0-1.0) mg/dL Direct Bilirubin (0.0-0.5) mg/dL AST (5-37) U/L ALT (0-40) U/L Alkaline Phosphatase (39-117) U/L Troponin I High Sens (<3.5-35.0) ng/L Total Protein (6.5-8.0) g/dL Albumin (3.5-5.0) g/dL Lipase (8-78) U/L Ethyl Alcohol mg/dL Acetone, Qual (Negative) COVID-19 ([place]) (Negative) COVID-19 Clin Com Blood Type O Positive Antibody Screen NEGATIVE ECG Data Attestation: I personally reviewed and interpreted this ECG as follows: ECG interpretation date: 09/13/20 ECG interpretation time: 11:16 Interpretation: Rate: 67 Rhythm: NSR [place]: normal Normal P waves. Normal YVONNE. Normal QRS complex. ST T wave : normal no ARTHUR qTC: normal prior studies: no acute ischemia The study has been interpreted contemporaneously by me. . Critical Care Time Critical Care Time Critical Care Time: Yes Total Critical Care Time: 60 Attestation: medical consult, IV antibiotics, stat surgery consult I attest to this time spent taking care of the patient Discharge Plan Discharge Clinical Impression: Opioid use disorder, Bowel perforation Patient Disposition: Admitted As Inpatient Interventions: Admission Worksheet (ED) Last Done: 09/13/20 13:28 [facility] Past Medical History Attestation statement: The following information was validated with the patient. Medical History (Updated 09/13/20 @ 15:53 by Mary Kay Bains) Opioid use disorder Social History Social History Household Members: Family Housing: Apartment Do you presently have visiting nurse or other home services: No Alcohol intake: current Alcohol intake frequency: does not drink Patient Tobacco Use Status: Current everyday Tobacco user Tobacco use type: Cigarette Cigarette Packs Per Day: 1 Cigarettes Per Day: 20.0 Second Hand Smoke Exposure: No Use of substances other than those prescribed or required for medical reasons: Yes Substance Use Type: Crack/Cocaine and Heroin Substance Use Frequency: Daily Last Used Substance: Days (ago) Any prior treatment program specific to substance use: Yes Are you DNR?: No Advance Directives: No Advance Directives Information Provided: Yes Advance Directives on File: No service: No Current occupational status: unemployed
--- NOTE | 2020-09-13 10:45 | ECG_ITS ---
Test Reason : PAIN Blood Pressure : / mmHG Vent. Rate : 067 BPM Atrial Rate : 067 BPM P-R Int : 138 ms QRS Dur : 090 ms QT Int : 436 ms P-R-T Axes : 000 080 064 degrees QTc Int : 460 ms Normal sinus rhythm Normal ECG When compared with ECG of 10-SEP-2020 00:51, Minimal criteria for Anterior infarct are no longer Present Referred By: Martha Hull Electronically Signed By:Charly Luu
[2020-09-13] MEDS: Metoclopramide HCl 10 MG/2 ML VIAL 5 MG IVPUSH (10:56)
[2020-09-13] MEDS: diphenhydrAMINE HCL 50 MG/ML VIAL 25 MG IVPUSH (10:56)
--- NOTE | 2020-09-13 11:03 | PC.NURSE ---
PT FROM HOME, REPORTS NAUSEA AND VOMITING WITH EPIGASTRIC PAIN. md TO BEDSIDE. pT WILL NOT REMAIN STILL FOR ekg, IS WHISPERING ANSWERS TO QUESTIONS AND WILL NOT POSITION HIMSELF SO STAFF CAN ADMINISTER MEDICATIONS. pT REPORTS HE IS IN WITHDRAWL FROM OPIATES, WANTS SUBOXONE TREATMENT, ALSO ASKING FOR PAIN MEDICATION AND YELLING AT STAFF, STATES HE IS IN PAIN.
[2020-09-13] MEDS: Lactated Ringers 1,000 ML 999 ML IV (11:05)
[2020-09-13 11:10] LABS: VBG HCO3 21 mmol/L (22-26); VBG pCO2 35 mmHg; VBG pH 7.38 (7.32-7.43); VBG pO2 46 mmHg
[2020-09-13 11:11] LABS: Venous Blood Gas Refer to POC result
[2020-09-13 11:18] LABS: MANUAL DIFF FLAG NO
[2020-09-13] MEDS: LORazepam 2 MG/ML VIAL 1 MG IVPUSH (11:24)
[2020-09-13] MEDS: 0.9 % Sodium Chloride 1,000 ML 999 ML IVCONT (11:28)
[2020-09-13 11:30] LABS: Basophils Percent Auto 0.4 % (0-2); Eosinophils Percent Auto 0.7 % (0-4); Hematocrit 44.3 % (42-52); Hemoglobin 15.2 g/dl (14.0-18.0); Imm Gran Abs Auto 0.01 X10*3/uL (0.00-0.03); Imm Gran Pct Auto 0.2 % (0.0-0.4); Lymphocytes Absolute Auto 1.8 X10*3/uL (1.2-4.9); Lymphocytes Percent Auto 33.5 % (20-40); Mean Corpuscular HGB Conc 34.3 g/dl (31.0-36.0); Mean Corpuscular Hemoglobin 28.6 pg (27.0-33.0); Mean Corpuscular Volume 83.3 fL (80-98); Monocytes Absolute Auto 0.3 X10*3/uL (0.1-1.2); Monocytes Percent Auto 6.4 % (2-11); Neutrophils Absolute Auto 3.1 X10*3/uL (2.0-8.3); Neutrophils Percent Auto 58.8 % (45-73); Platelet Count 323 X10*3/uL (160-400); Red Blood Count 5.32 X10*6/uL (4.60-5.80); Red Cell Distribution Width 12.2 % (11.0-16.0); White Blood Count 5.3 X10*3/uL (4.8-10.8)
--- NOTE | 2020-09-13 11:31 | HE.PHANOTE ---
Addendum entered by Soo Adorno RPh 09/13/20 11:32: Patient hasnt filled novolog since 2019, adherence?? Original Note: Pharmacy Consult ? Medication Reconciliation Pharmacy has completed the medication reconciliation and there were no significant medication issues requiring provider attention. Soo MathewD
[2020-09-13 11:41] LABS: Acetone, serum QL Negative (Negative)
[2020-09-13 11:44] LABS: Ethanol < 10 mg/dL
[2020-09-13 11:45] LABS: Lactic Acid 1.4 mmol/L (0.5-2.0)
[2020-09-13 11:47] LABS: Anion Gap 10 (12-20); Blood Urea Nitrogen 21 mg/dL (9-16); COVID-19 Test Negative (Negative); Carbon Dioxide 27 mmol/L (22-29); Chloride 100 mmol/L (96-108); Creatinine Clr Calc Pharmacy 90.1; Estimated Glomerular Filt Rate > 60; Glucose Random 242 mg/dL (60-115); Sodium 133 mmol/L (135-145)
[2020-09-13 11:50] LABS: Alanine Aminotransferase 17 U/L (0-40); Albumin Level 3.8 g/dL (3.5-5.0); Alkaline Phosphatase 83 U/L (39-117); Aspartate Amino Transferase 16 U/L (5-37); Bilirubin Direct 0.2 mg/dL (0.0-0.5); Bilirubin Total 0.6 mg/dL (0.0-1.0); Lipase 7 U/L (8-78); Total Protein 6.2 g/dL (6.5-8.0)
[2020-09-13 11:53] LABS: Troponin-I High Sensitivity < 3.5 ng/L (<3.5-35.0)
[2020-09-13] MEDS: Pantoprazole Sodium 40 MG/10 ML VIAL IVPUSH ×2 (12:32→19:01)
[2020-09-13] MEDS: Morphine Sulfate 4 MG/ML CARTRIDGE IVPUSH (12:33)
[2020-09-13 12:39] LABS: INTERNATIONAL NORM RATIO 0.9 (0.9-1.1); Prothrombin Time 11.1 SEC (10.8-13.0)
[2020-09-13 12:42] LABS: Partial Thromboplastin Time 27.2 SEC (24.1-38.0)
[2020-09-13] MEDS: metroNIDAZOLE/NS 500 MG/100 ML PIGGYBACK 100 MG IV ×2 (12:47→20:36)
--- NOTE | 2020-09-13 13:09 | PM.HPGS ---
History of Present Illness History of Present Illness Date of Service: 09/16/20 Chief complaint: PERFORATED VISCUS Narrative: Ren Rodriguez is a 50 year old male who presented to the ED today because of abdominal pain. He says he had sudden acute pain early this morning. He says this is severe and pesistent. He denies any previous GI complaints. He denies any nausea or vomitting. He admits to taking pain medications including Advil frequently. He is also a known IV drug abuser. He had been recently admitted (09/11) for DKA and was in the ICU but signed out AMA. He underwent a CT scan of the abdomen and pelvis in the ED which showed free air intraperitoneally mostly in the upper abdomen. Review of Systems Constitutional: Constitutional: Denies chills and Denies fever(s) Cardiovascular: Cardiovascular: Denies chest pain, Denies dyspnea and Denies dyspnea on exertion Respiratory: Respiratory: Denies cough, Denies dyspnea and Denies dyspnea on exertion Gastrointestinal: Gastrointestinal: Denies hematochezia and Denies change in bowel habits Genitourinary: Genitourinary: Denies hematuria and Denies difficulty urinating Musculoskeletal: Musculoskeletal: Denies back pain and Denies limited range of motion Neurologic: Denies focal weakness and Denies convulsions Psychiatric: Psychiatric: Denies depression and Denies mood swings PMFSH Past Medical History Medical History (Updated 09/15/20 @ 12:13 by Helder Lainez MD) Opioid use disorder Social History Social History Household Members: Family Housing: Apartment Do you presently have visiting nurse or other home services: No Alcohol intake: current Alcohol intake frequency: does not drink Patient Tobacco Use Status: Current everyday Tobacco user Tobacco use type: Cigarette Cigarette Packs Per Day: 1 Cigarettes Per Day: 20.0 Second Hand Smoke Exposure: No Substance Use Type: Crack/Cocaine and Heroin service: No Current occupational status: unemployed Meds Allergies Allergy/AdvReac Type Severity Reaction Status Date / Time Penicillins Allergy Unknown UNKNOWN Verified 07/05/20 09:49 Active Medications: Current Medications Generic Name Dose Route Start Last Admin Trade Name Freq PRN Reason Stop Dose Admin Metronidazole 500 mg in 100 mls @ 100 mls/hr 09/13/20 12:21 09/13/20 12:47 Flagyl IV 09/13/20 13:20 100 mls/hr ONCE ONE Administration Levofloxacin 500 mg in 100 mls @ 100 mls/hr 09/13/20 12:21 Levaquin IV 09/13/20 13:20 ONCE ONE Cefazolin Sodium/Dextrose 2 gm in 50 mls @ 100 mls/hr 09/13/20 13:06 Ancef IV 09/13/20 13:35 PREOP ONE Pharmacy Consult 1 each 09/13/20 10:44 Consult Rx Perform Med Rec MISCELLANE ONCE PRN Consult order Sodium Chloride 3 ml 09/13/20 16:00 0.9 % Sodium Chloride Flush 3 Ml Syringe IVFLUSH [facility] Home Medications Medication Instructions Recorded Confirmed Last Taken Type clonidine HCl 0.1 mg tablet 0.1 mg PO BID PRN 02/09/20 09/13/20 Unknown History insulin glargine 100 unit/mL (3 40 unit SUBCUT BEDTIME 02/09/20 09/13/20 Unknown History mL) subcutaneous pen trazodone 100 mg tablet 100 mg PO BEDTIME PRN 02/09/20 09/13/20 Unknown History hydroxyzine HCl 1 tab PO BID PRN 09/13/20 09/13/20 Unknown History insulin aspart U-100 [Novolog See Protocol SUBCUT DIRECTED 09/13/20 09/13/20 Unknown History Flexpen U-100 Insulin] quetiapine 1 tab PO BEDTIME 09/13/20 09/13/20 Unknown History Physical Exam Vital Signs: Vital Signs: Last Vital Signs Temp 98.5 F 09/13/20 10:47 Pulse 73 09/13/20 10:47 Resp 16 09/13/20 10:47 BP 183/104 H 09/13/20 10:47 Pulse Ox 100 09/13/20 10:47 Body Mass Index 25.2 Const: Other: extremely anxious, and in pain Orientation/consciousness: patient oriented x3 Neck: Neck: Yes no lymphadenopathy Resp: Auscultation: clear to auscultation bilaterally Cardio: Rhythm: regular rhythm GI: Other: very tender mostly on epigastric area Palpation (GI): Tenderness to palpation present (GI) and Guarding due to palpation present (GI) Neuro: General: patient oriented x3 Results Results Labs: Short CBC 09/13/20 Range/Units 11:04 WBC 5.3 (4.8-10.8) X10*3/uL Hgb 15.2 (14.0-18.0) g/dl Hct 44.3 (42-52) % Plt Count 323 (160-400) X10*3/uL BMP 09/13/20 11:04 Sodium 133 L Potassium 4.0 Chloride 100 Carbon Dioxide 27 BUN 21 H Creatinine 0.98 Calcium 9.0 Liver Function 09/13/20 Range/Units 11:04 Total Bilirubin 0.6 (0.0-1.0) mg/dL Direct Bilirubin 0.2 (0.0-0.5) mg/dL AST 16 (5-37) U/L ALT 17 (0-40) U/L Alkaline Phosphatase 83 (39-117) U/L Albumin 3.8 (3.5-5.0) g/dL Abdomen CT scan report/results: report reviewed and image reviewed CT scan - pelvis: report reviewed and image reviewed Assessment and Plan (1) Bowel perforation: Status: Acute I have reviewed his CT scan with the radiologist and the etiology is likely to be a perforated duodenal ulcer. There were no inflammatory changes seen around the sigmoid. The free air is seen on the upper abdomen and none around the sigmoid. I explained to the patient that we needed to proceed with emergency laparotomy in view of his perforated viscus. I explained to him the technique of laparotomy, possible bowel resection possible omental patching. I reviewed the risks including but not limited to bleeding, infections, bowel injury, inherent risks of anesthesia, poor pain control in view of his opioid abuse, as well as the benefits and alternatives and he has agreed to proceed. He understands that I anticipate poor postop pain control with possible problems with withdrawal. I will consult the hospitalist service. Quality Stroke Does the patient have a stroke diagnosis?: No VTE Prior VTE?: No VTE Risk Level:: Surgical - moderate VTE Device Contraindication: N/A - Device Ordered VTE Drug Contraindication: N/A - Med Ordered Procedures Date of Service Date of Service: 09/13/20
[2020-09-13] MEDS: HYDROmorphone HCl 1 MG/ML SYRINGE IVPUSH (13:11)
[2020-09-13 13:22] LABS: Lactic Acid 1.3 mmol/L (0.5-2.0)
--- NOTE | 2020-09-13 13:25 | PC.NURSE ---
Addendum entered by Louise Velasco RN 09/13/20 13:27: pt to OR via stretcher not EMS Original Note: pt has been writing and bending his arm, fluids not running with arm bent. Pt got secondary IV, fluids hung and running. Pt was been reporting 10/10 pain and diaphoretic. HE was medicated with morphine then dilaudid for pain but reports no change. Report to short stay surgery, pt to OR via EMS
--- NOTE | 2020-09-13 13:29 | PC.NURSE ---
pt has two IV sites. #20 to left AC with flagyl running from ER. Pt has #20 to Right AC, flushes easily, no redness or swelling noted to IV site
--- NOTE | 2020-09-13 13:30 | P.CONAN_ITS ---
HPI - Anesthesia Eval Consult details Narrative: 50 year old male patient for exploratory laparotomy PMFSH Active Problems Active Problems: All Active Problems (Updated 09/13/20 @ 12:29 by Martha nazario DO) Bowel perforation (Acute) Toxic metabolic encephalopathy (Acute) Substance abuse (Acute) Hyperglycemia (Acute) DKA (diabetic ketoacidoses) (Acute) Opioid use disorder (Acute) Opioid use disorder, mild, in controlled environment (Acute) Past Medical History Medical History (Updated 09/13/20 @ 15:53 by Mary Kay Bains) Opioid use disorder Family History Family history of problems with anesthesia: No Surgical History History of Problems with Anesthesia: No Social History Social History Household Members: Family Housing: Apartment Do you presently have visiting nurse or other home services: No Alcohol intake: current Alcohol intake frequency: does not drink Patient Tobacco Use Status: Current everyday Tobacco user Tobacco use type: Cigarette Cigarette Packs Per Day: 1 Cigarettes Per Day: 20.0 Second Hand Smoke Exposure: No Use of substances other than those prescribed or required for medical reasons: Yes Substance Use Type: Crack/Cocaine and Heroin Substance Use Frequency: Daily Last Used Substance: Days (ago) Any prior treatment program specific to substance use: Yes Are you DNR?: No Advance Directives: No Advance Directives Information Provided: Yes Advance Directives on File: No service: No Current occupational status: unemployed Meds Allergies Allergy/AdvReac Type Severity Reaction Status Date / Time Penicillins Allergy Unknown UNKNOWN Verified 07/05/20 09:49 Active Medications: Current Medications Generic Name Dose Route Start Last Admin Trade Name Freq PRN Reason Stop Dose Admin Cefazolin Sodium/Dextrose 2 gm in 50 mls @ 100 mls/hr 09/13/20 13:06 Ancef IV 09/13/20 13:35 PREOP ONE Pharmacy Consult 1 each 09/13/20 10:44 Consult Rx Perform Med Rec MISCELLANE ONCE PRN Consult order Sodium Chloride 3 ml 09/13/20 16:00 0.9 % Sodium Chloride Flush 3 M[facility] Medications Medication Instructions Recorded Confirmed Last Taken Type clonidine HCl 0.1 mg tablet 0.1 mg PO BID PRN 02/09/20 09/13/20 Unknown History insulin glargine 100 unit/mL (3 40 unit SUBCUT BEDTIME 02/09/20 09/13/20 Unknown History mL) subcutaneous pen trazodone 100 mg tablet 100 mg PO BEDTIME PRN 02/09/20 09/13/20 Unknown History hydroxyzine HCl 1 tab PO BID PRN 09/13/20 09/13/20 Unknown History insulin aspart U-100 [Novolog See Protocol SUBCUT DIRECTED 09/13/20 09/13/20 Unknown History Flexpen U-100 Insulin] quetiapine 1 tab PO BEDTIME 09/13/20 09/13/20 Unknown History Exam Exam Date and Time: September 13, 2020 1330 Height,Weight and Vital Signs: Height 5 ft 9 in Weight 77.467 kg Last Vital Signs Temp 98.3 F 09/13/20 13:25 Pulse 72 09/13/20 13:25 Resp 16 09/13/20 13:25 BP 147/77 H 09/13/20 13:25 Pulse Ox 99 09/13/20 13:25 Pertinent Lab Results Pertinent Lab Results: Laboratory Tests 09/13/20 09/13/20 09/13/20 11:04 11:04 11:04 WBC 5.3 RBC 5.32 Hgb 15.2 Hct 44.3 MCV 83.3 MCH 28.6 MCHC 34.3 RDW 12.2 Plt Count 323 MPV 10.0 Immature Gran % (Auto) 0.2 Neut % (Auto) 58.8 Lymph % (Auto) 33.5 Arthur % (Auto) 6.4 Eos % (Auto) 0.7 Baso % (Auto) 0.4 Lymph # (Auto) 1.8 Arthur # (Auto) 0.3 Eos # (Auto) 0.0 Baso # (Auto) 0.0 Abs Immat Gran (auto) 0.01 Absolute Neuts (auto) 3.1 Absolute Nucleated RBC 0.000 Nucleated RBC % (auto) 0.0 PT INR APTT Hold Blue Top VBG pH VBG pCO2 VBG pO2 VBG HCO3 VBG O2 Saturation VBG Base Excess Sodium 133 L Potassium 4.0 Chloride 100 Carbon Dioxide 27 Anion Gap 10 L BUN 21 H Creatinine 0.98 Estim Creat Clear Calc 90.1 Estimated GFR > 60 Random Glucose 242 H D Lactic Acid Calcium 9.0 Magnesium Total Bilirubin Direct Bilirubin AST ALT Alkaline Phosphatase Troponin I High Sens Total Protein Albumin Lipase Ethyl Alcohol Acetone, Qual Negative COVID-19 ([facility]) Negative [employer] See Note 09/13/20 09/13/20 09/13/20 11:04 11:04 11:04 WBC RBC Hgb Hct MCV MCH MCHC RDW Plt Count MPV Immature Gran % (Auto) Neut % (Auto) Lymph % (Auto) Arthur % (Auto) Eos % (Auto) Baso % (Auto) Lymph # (Auto) Arthur # (Auto) Eos # (Auto) Baso # (Auto) Abs Immat Gran (auto) Absolute Neuts (auto) Absolute Nucleated RBC Nucleated RBC % (auto) PT 11.1 INR 0.9 APTT 27.2 Hold Blue Top SEE NOTE VBG pH VBG pCO2 VBG pO2 VBG HCO3 VBG O2 Saturation VBG Base Excess Sodium Potassium Chloride Carbon Dioxide Anion Gap BUN Creatinine Estim Creat Clear Calc Estimated GFR Random Glucose Lactic Acid 1.4 Calcium Magnesium 2.0 Total Bilirubin 0.6 Direct Bilirubin 0.2 AST 16 ALT 17 Alkaline Phosphatase 83 Troponin I High Sens Total Protein 6.2 L Albumin 3.8 Lipase 7 L Ethyl Alcohol Acetone, Qual COVID-19 ([place]) [employer] [employer] 09/13/20 09/13/20 09/13/20 11:04 11:04 11:04 WBC RBC Hgb Hct MCV MCH MCHC RDW Plt Count MPV Immature Gran % (Auto) Neut % (Auto) Lymph % (Auto) Arthur % (Auto) Eos % (Auto) Baso % (Auto) Lymph # (Auto) Arthur # (Auto) Eos # (Auto) Baso # (Auto) Abs Immat Gran (auto) Absolute Neuts (auto) Absolute Nucleated RBC Nucleated RBC % (auto) PT INR APTT Hold Blue Top VBG pH 7.38 VBG pCO2 35 VBG pO2 46 VBG HCO3 21 L VBG O2 Saturation 75.0 VBG Base Excess -3.0 Sodium Potassium Chloride Carbon Dioxide Anion Gap BUN Creatinine Estim Creat Clear Calc Estimated GFR Random Glucose Lactic Acid Calcium Magnesium Total Bilirubin Direct Bilirubin AST ALT Alkaline Phosphatase Troponin I High Sens < 3.5 Total Protein Albumin Lipase Ethyl Alcohol < 10 Acetone, Qual COVID-19 ([place]) [facility] 09/13/20 12:48 WBC RBC Hgb Hct MCV MCH MCHC RDW Plt Count MPV Immature Gran % (Auto) Neut % (Auto) Lymph % (Auto) Arthur % (Auto) Eos % (Auto) Baso % (Auto) Lymph # (Auto) Arthur # (Auto) Eos # (Auto) Baso # (Auto) Abs Immat Gran (auto) Absolute Neuts (auto) Absolute Nucleated RBC Nucleated RBC % (auto) PT INR APTT Hold Blue Top VBG pH VBG pCO2 VBG pO2 VBG HCO3 VBG O2 Saturation VBG Base Excess Sodium Potassium Chloride Carbon Dioxide Anion Gap BUN Creatinine Estim Creat Clear Calc Estimated GFR Random Glucose Lactic Acid 1.3 Calcium Magnesium Total Bilirubin Direct Bilirubin AST ALT Alkaline Phosphatase Troponin I High Sens Total Protein Albumin Lipase Ethyl Alcohol Acetone, Qual COVID-19 ([facility]) COVID-19 Clin Com Airway Mallampati Class: II TM Dist: >3cm Neck ROM: Full Heart: RRR Lungs: CTAB Assessment and Plan Assessment Anesthesia Assessment: Anesthesia Plan Discussed and Chart Reviewed Final Anesthetic Review NPO: Yes ASA Class: III and Emergency Final Preanesthetic Review: No Changes in Pt Med Stat, Meds/Allgs Chart Reviewed, Consent Obtained/Reviewed and Anes Risks/Benef Reviewed Patient Risk: Intermediate Procedure Risk: Intermediate Assessment/Block/Sedation in SS: Assess/Block/Sedation-SS Anesthetic Plan Anesthetic Plan: GA Disposition: Inp. Admit - Standard Bed
[2020-09-13 13:45] LABS: Glucose, Whole Blood 245 mg/dL (60-115)
--- NOTE | 2020-09-13 13:46 | PC.NURSE ---
Patients silver ring removed and placed in blue labeled cup in patient labeled bag.
--- NOTE | 2020-09-13 15:48 | P.OP_ITS ---
Operative Note Operative Note Date of Service: 09/13/20 Narrative: Preop diagnosis: Perforated viscus Postop diagnosis: Perforated ulcer in the distal stomach area Procedure: Repair perforated ulcer with omental patch Surgeon: Daquan Bermudez MD No assistant superintendent The patient is a 50-year-old male who came to the room today because of severe epigastric pain with a CAT scan showing free air mostly upper abdomen. This was reviewed with the radiologist. I explained to the patient that we needed to do emergent laparotomy. I explained to him the technique of likely repair of perforated ulcer and possible bowel resection. I explained to him the risks including but not limited to bleeding, infections, bowel injury, leak from the repair site, pain control postop, inherent risks of anesthesia, as well as the benefits and alternatives. He had given consent. The patient was brought to the operating room and placed supine on the table under general anesthesia via endotracheal tube. The abdomen was prepped and draped in the usual sterile fashion. A Pena catheter was inserted. The OR staff had to use a smaller gauge Pena catheter in view of some initial difficulty with insertion. An NG tube was also inserted by the anesthesiologist. A surgical time-out had been done. The patient received cefazolin 2 g IV preoperatively I then made a midline incision in the upper abdomen using a blade 10 and this was carried down through the full-thickness of the skin and subcutaneous fat down to the fascia. The fascia was incised. The peritoneum was entered. Fluid consistent with gastric contents was then noted. We had to do some suctioning and irrigation to achieve good visualization. We then applied the Bookwalter retractors. I the anterior wall of the stomach and follwed this distally. There was note of a 1.3 cm ulcer, well-defined, in what appeared to be on the distal aspect of the stomach at the pre-pyloric area. This appeared to be clean and well defined although indurated. I therefore applied interrupted full-thickness Prolene 2-0 sutures to close this perforation. I then pulled up a band of omentum to cover this area as a Roberto patch. I secured this thick band of omentum using Prolene 2-0 sutures to keep this in place over the perforation. I made sure that the sutures were not too tight on the omental patch to maintain viability. I then copiously irrigated the peritoneum. I examined the area of repair and tjere was no other evidence of persistent leakage of intestinal contents. I positioned a SUSI#7 drain to the subhepatic space and this was brought out through an exit site on the right side of the abdomen and was secured with nylon 3-0 sutures. After furthers irrigation and examination of the upper abdomen, hemostasis was confirmed. I closed the fascia with a running Maxon 1 stitch. Skin closure was achieved with mack. I infiltrated the incisions with Marcaine 0.5% for postop analgesia. Dressings were then applied. The patient tolerated the procedure well. There were no complications noted.The procedure was therefore completed The patient tolerated the procedure well. Initial and final counts of sponges and instruments were correct. Estimated blood loss was about 40 cc. At the end of the procedure however I noticed that there was no output at all from the Pena catheter. I desufflated the balloon and immediately, , blood clots and fresh blood were seen to be draining through the Pena catheter. This was suspicious for urethral trauma with insufflation of the balloon. I consulted the urologist it was advised that I pull out the catheter completely. He will reinsert a fresh Pena catheter in the recovery room. The patient was therefore extubated without difficulty and transferred to the PACU with stable VS.
--- NOTE | 2020-09-13 15:59 | P.BOP_ITS ---
Brief Operative Note Date of Service: 09/13/20 Pre-op diagnosis: perforated viscus Post-op diagnosis: other (perforated ulcer, distal stomach) Procedure: repair of perforated ulcer with omental patch Surgeon: Daquan Bermudez MD Anesthesia: GETA Was an Firearms Assembly Supervisor used for this Procedure?: No Estimated blood loss (mL): 40 Pathology: none sent Condition: stable Disposition: PACU
[2020-09-13] MEDS: fentaNYL citrate/PF 100 MCG/2 ML VIAL 25 MCG IVPUSH ×4 (16:05→16:20)
[2020-09-13] MEDS: levoFLOXacin/D5W 500 MG/100 ML PIGGYBACK 100 MG IV (16:50)
--- NOTE | 2020-09-13 16:51 | PC.NURSE ---
message to dr. peck regarding need to come to pacu regarding consult place catheter. patient unable to void. await response
[2020-09-13] MEDS: HYDROmorphone HCl 0.5 MG/0.5 ML SYRINGE 0.25 MG IVPUSH ×2 (17:09→17:30)
--- NOTE | 2020-09-13 17:24 | PM.EVENT ---
Event Note Date of Service: 09/16/20 Event Note: seen postop seems to have adequate pain control stable VS SUSI serosanguinous NGT in place dressings dry seems to be doing well postop awaiting Gu eval for traumatic catheterization Danay updated by phone at [phone]
--- NOTE | 2020-09-13 17:36 | PC.NURSE ---
dr. peck at bedside to assist with nick catheter issues. patient educated plan
--- NOTE | 2020-09-13 17:55 | PC.NURSE ---
number [address] peck following attempt with #24. immediate output red tinged urine approximately 600ml
[2020-09-13] MEDS: Lactated Ringers 1,000 ML 100 ML IVCONT (19:01)
--- NOTE | 2020-09-13 20:04 | P.PNIM_ITS ---
Subjective Subjective Date of Service: 09/14/20 Interval History: Medicine consultation note: Brief history: 50-year-old male with a past medical history of polysubstance abuse, opiate depe ndence on Suboxone, hypertension, diabetes, depression, recent admission to the hospital for DKA on 09/10/2020 with a chief complaint of nausea vomiting abdominal pain. ER team noted to have tender abdomen; CT scan showed perforated bowel likely at the duodenum; patient was given IV fluids, IV antibiotics, IV Protonix and spoke to General surgery; Dr. Aidan De has taken the patient to the operation theater-status post surgery subsequently brought to the medical floor. Patient has SUSI drain in place. When I spoke to the patient patient around 7:30 p.m. is drowsy (likely from anesthesia) and wants to sleep; complains of pain in the abdomen. Spoke to the RN at bedside. Dressing in place on the abdomen; has tender abdomen; blood pressure is slightly elevated. Patient denies any headaches. Physical Exam Vital Signs: Vital Signs: Last Vital Signs Temp 98.2 F 09/13/20 19:10 Pulse 92 09/13/20 19:10 Resp 18 09/13/20 19:10 BP 199/84 H 09/13/20 19:10 Pulse Ox 99 09/13/20 19:10 Body Mass Index 25.2 Gen: Appears be in no acute distress HEENT: NCAT, Moist mucosa. Pulmonary: Vesicular breath sounds, fair air entry CVS: Normal S1-S2 Abdomen: BS+, Soft, tender; SUSI drain in place Extremities: Warm well perfused Neuro: Drowsy Objective Data Current Medications Generic Name Dose Route Start Last Admin Trade Name Ruddyq PRN Reason Stop Dose Admin Hydromorphone HCl 0.25 mg 09/13/20 16:00 09/13/20 17:30 Hydromorphone Hcl 0.5 Mg/0.5 Ml Syringe IVPUSH 0.25 mg Q5M PRN Administration Pain, Severe (Pain Scale 7-10) Lactated Ringer's 1,000 mls @ 100 mls/hr 09/13/20 15:45 09/13/20 19:01 Lr IVCONT 100 mls/hr .Q10H ASHLYN Administration Levofloxacin 500 mg in 100 mls @ 100 mls/hr 09/13/20 15:45 09/13/20 18:51 Levaquin IV Not Given Q24H [facility] Metronidazole 500 mg in 100 mls @ 100 mls/hr 09/13/20 21:00 Flagyl IV Q8H [facility] Lactated Ringer's 1,000 mls @ 100 mls/hr 09/13/20 16:00 09/13/20 19:18 Lr IVCONT Not Given .Q10H [facility] Promethazine HCl 6.25 mg/ 50.25 mls @ 201 mls/hr 09/13/20 16:00 Sodium Chloride IV ONCE PRN Nausea and Vomiting Promethazine HCl 12.5 mg/ 50.5 mls @ 202 mls/hr 09/13/20 18:45 Sodium Chloride IV Q6H PRN Nausea Acetaminophen 1,000 mg in 100 mls @ 400 mls/hr 09/13/20 21:30 Ofirmev IV 09/14/20 15:44 Q6H [facility] Morphine Sulfate 4 mg 09/13/20 16:01 Morphine Sulfate 4 Mg/Ml Cartridge IVPUSH Q3H PRN Pain, Severe (Pain Scale 7-10) Ondansetron HCl 4 mg 09/13/20 16:00 Ondansetron Hcl 4 Mg/2 Ml Vial IVPUSH ONCE PRN Nausea and Vomiting Ondansetron HCl 4 mg 09/13/20 18:45 Ondansetron Hcl 4 Mg/2 Ml Vial IVPUSH Q8H PRN Nausea Pantoprazole Sodium 40 mg 09/13/20 18:45 09/13/20 19:01 Pantoprazole Sodium 40 Mg/10 Ml Vial IVPUSH 40 mg BID@0630,1630 [facility] Administration Pharmacy Consult 1 each 09/13/20 10:44 Consult Rx Perform Med Rec MISCELLANE ONCE PRN Consult order Sodium Chloride 3 ml 09/13/20 16:00 09/13/20 19:17 0.9 % Sodium Chloride Flush 3 Ml Syringe IVFLUSH Not Given QSHIFT [facility] Labs CBC & Chem 7: 09/14/20 06:36 09/14/20 06:36 Labs: Laboratory Results - last 24 hr 09/13/20 09/13/20 09/13/20 11:04 11:04 11:04 WBC 5.3 RBC 5.32 Hgb 15.2 Hct 44.3 MCV 83.3 MCH 28.6 MCHC 34.3 RDW 12.2 Plt Count 323 MPV 10.0 Immature Gran % (Auto) 0.2 Neut % (Auto) 58.8 Lymph % (Auto) 33.5 Stewart % (Auto) 6.4 Eos % (Auto) 0.7 Baso % (Auto) 0.4 Lymph # (Auto) 1.8 Stewart # (Auto) 0.3 Eos # (Auto) 0.0 Baso # (Auto) 0.0 Abs Immat Gran (auto) 0.01 Absolute Neuts (auto) 3.1 Absolute Nucleated RBC 0.000 Nucleated RBC % (auto) 0.0 PT INR APTT Hold Blue Top VBG pH VBG pCO2 VBG pO2 VBG HCO3 VBG O2 Saturation VBG Base Excess Sodium 133 L Potassium 4.0 Chloride 100 Carbon Dioxide 27 Anion Gap 10 L BUN 21 H Creatinine 0.98 Estim Creat Clear Calc 90.1 Estimated GFR > 60 POC Glucose Random Glucose 242 H D Lactic Acid Calcium 9.0 Magnesium Total Bilirubin Direct Bilirubin AST ALT Alkaline Phosphatase Troponin I High Sens Total Protein Albumin Lipase Ethyl Alcohol Acetone, Qual Negative COVID-19 ([place]) Negative [facility] [facility] See Note Blood Type Antibody Screen 09/13/20 09/13/20 09/13/20 11:04 11:04 11:04 WBC RBC Hgb Hct MCV MCH MCHC RDW Plt Count MPV Immature Gran % (Auto) Neut % (Auto) Lymph % (Auto) Stewart % (Auto) Eos % (Auto) Baso % (Auto) Lymph # (Auto) Stewart # (Auto) Eos # (Auto) Baso # (Auto) Abs Immat Gran (auto) Absolute Neuts (auto) Absolute Nucleated RBC Nucleated RBC % (auto) PT 11.1 INR 0.9 APTT 27.2 Hold Blue Top SEE NOTE VBG pH VBG pCO2 VBG pO2 VBG HCO3 VBG O2 Saturation VBG Base Excess Sodium Potassium Chloride Carbon Dioxide Anion Gap BUN Creatinine Estim Creat Clear Calc Estimated GFR POC Glucose Random Glucose Lactic Acid 1.4 Calcium Magnesium 2.0 Total Bilirubin 0.6 Direct Bilirubin 0.2 AST 16 ALT 17 Alkaline Phosphatase 83 Troponin I High Sens Total Protein 6.2 L Albumin 3.8 Lipase 7 L Ethyl Alcohol Acetone, Qual COVID-19 ([place]) COVID-19 [employer] [facility] Blood Type Antibody Screen 06/25/21 06/25/21 06/25/21 11:04 11:04 11:04 WBC RBC Hgb Hct MCV MCH MCHC RDW Plt Count MPV Immature Gran % (Auto) Neut % (Auto) Lymph % (Auto) Stewart % (Auto) Eos % (Auto) Baso % (Auto) Lymph # (Auto) Stewart # (Auto) Eos # (Auto) Baso # (Auto) Abs Immat Gran (auto) Absolute Neuts (auto) Absolute Nucleated RBC Nucleated RBC % (auto) PT INR APTT Hold Blue Top VBG pH 7.38 VBG pCO2 35 VBG pO2 46 VBG HCO3 21 L VBG O2 Saturation 75.0 VBG Base Excess -3.0 Sodium Potassium Chloride Carbon Dioxide Anion Gap BUN Creatinine Estim Creat Clear Calc Estimated GFR POC Glucose Random Glucose Lactic Acid Calcium Magnesium Total Bilirubin Direct Bilirubin AST ALT Alkaline Phosphatase Troponin I High Sens < 3.5 Total Protein Albumin Lipase Ethyl Alcohol < 10 Acetone, Qual COVID-19 ([place]) [facility]-[employer] Blood Type Antibody Screen 09/13/20 09/13/20 09/13/20 12:48 12:48 13:42 WBC RBC Hgb Hct MCV MCH MCHC RDW Plt Count MPV Immature Gran % (Auto) Neut % (Auto) Lymph % (Auto) Stewart % (Auto) Eos % (Auto) Baso % (Auto) Lymph # (Auto) Stewart # (Auto) Eos # (Auto) Baso # (Auto) Abs Immat Gran (auto) Absolute Neuts (auto) Absolute Nucleated RBC Nucleated RBC % (auto) PT INR APTT Hold Blue Top VBG pH VBG pCO2 VBG pO2 VBG HCO3 VBG O2 Saturation VBG Base Excess Sodium Potassium Chloride Carbon Dioxide Anion Gap BUN Creatinine Estim Creat Clear Calc Estimated GFR POC Glucose 245 H Random Glucose Lactic Acid 1.3 Calcium Magnesium Total Bilirubin Direct Bilirubin AST ALT Alkaline Phosphatase Troponin I High Sens Total Protein Albumin Lipase Ethyl Alcohol Acetone, Qual COVID-19 ([place]) COVID-19 [employer] [facility] Blood Type O Positive Antibody Screen NEGATIVE Quality Stroke Does the patient have a stroke diagnosis?: No VTE Prior VTE?: No VTE Risk Level:: Surgical - moderate VTE Device Contraindication: N/A - Device Ordered VTE Drug Contraindication: N/A - Med Ordered Assessment and Plan (1) Bowel perforation: Status: Acute Assessment and Plan: 50-year-old male with a past medical history of hypertension, insulin-dependent diabetes, recent admission to the hospital for DKA, polysubstance abuse, opiate dependence on Suboxone presented to the hospital with nausea vomiting abdominal pain noted to have bowel perforation. Status post surgery. Bowel perforation: Status post surgery. SUSI drain in place. Patient on Dilaudid for pain control. Management as per the General surgery team. History of insulin-dependent diabetes: Patient had recent history of DKA. Mo nitor fingerstick glucose. Will give the patient on Lantus and sliding scale; adjust insulins as needed. Patient currently NPO. Gentle IV fluids. History of hypertension: Will give the patient on Hydralazine p.r.n. Opiate dependence: Patient on Suboxone. Will consult Addiction Medicine for fu rther recommendations.
[2020-09-13 20:23] LABS: Glucose, Whole Blood 279 mg/dL (60-115)
[2020-09-13] MEDS: Insulin Lispro 100 UNIT/ML 3 ML VIAL SUBCUT (20:38)
[2020-09-13] MEDS: Insulin Glargine,Hum.rec.anlog 100 UNIT/ML 10 ML VIAL 15 UNIT SUBCUT (20:39)
[2020-09-13] MEDS: Dextrose 5 % and 0.45 % NaCl 1,000 ML 50 ML IVCONT (20:39)
[2020-09-13] MEDS: hydrALAZINE HCl 20 MG/ML VIAL 5 MG IVPUSH (20:43)
--- NOTE | 2020-09-13 23:26 | PC.NURSE ---
P-BP-201/86 P-100 I-HYDRALAZINE 5MG IV GIVEN AT 2034 E-BP 159/82 P-103 AT 2134
[2020-09-14] VITALS (13 sets, daily range): BP systolic 157–202; BP diastolic 75–98; PULSE 72–94; RESP 18–20; TEMP 36.6–36.9; O2SAT 97–100
[2020-09-14] MEDS: hydrALAZINE HCl 20 MG/ML VIAL 5 MG IVPUSH ×2 (04:25→11:05)
[2020-09-14 05:17] LABS: Glucose, Whole Blood 240 mg/dL (60-115)
[2020-09-14] MEDS: Pantoprazole Sodium 40 MG/10 ML VIAL IVPUSH ×2 (05:51→16:39)
[2020-09-14] MEDS: metroNIDAZOLE/NS 500 MG/100 ML PIGGYBACK 100 MG IV ×3 (05:51→20:18)
[2020-09-14 07:05] LABS: Hematocrit 38.1 % (42-52); Hemoglobin 13.2 g/dl (14.0-18.0); Mean Corpuscular HGB Conc 34.6 g/dl (31.0-36.0); Mean Corpuscular Hemoglobin 28.3 pg (27.0-33.0); Mean Corpuscular Volume 81.8 fL (80-98); Mean Platelet Volume 10.5 fL (9.4-12.4); Platelet Count 211 X10*3/uL (160-400); Red Blood Count 4.66 X10*6/uL (4.60-5.80); Red Cell Distribution Width 11.9 % (11.0-16.0); White Blood Count 8.8 X10*3/uL (4.8-10.8)
[2020-09-14] MEDS: Morphine Sulfate 4 MG/ML CARTRIDGE IVPUSH ×3 (07:16→14:51)
[2020-09-14] MEDS: ondansetron HCL 4 MG/2 ML VIAL IVPUSH ×2 (07:18→18:41)
--- NOTE | 2020-09-14 07:24 | PC.NURSE ---
Patient pulled out NGT around 0100, notified, patient continued to refuse, comfortable all night and asked for zofran 0710. bulb drain 40 cc output
[2020-09-14 07:38] LABS: Anion Gap 13 (12-20); Blood Urea Nitrogen 14 mg/dL (9-16); Calcium 8.1 mg/dL (8.4-10.2); Carbon Dioxide 22 mmol/L (22-29); Chloride 102 mmol/L (96-108); Creatinine Clr Calc Pharmacy 117.8; Estimated Glomerular Filt Rate > 60; Glucose Random 197 mg/dL (60-115); Potassium 3.8 mmol/L (3.3-5.1); Sodium 133 mmol/L (135-145)
[2020-09-14 08:04] LABS: Glucose, Whole Blood 208 mg/dL (60-115)
[2020-09-14 11:41] LABS: Glucose, Whole Blood 247 mg/dL (60-115)
--- NOTE | 2020-09-14 11:53 | P.PNGS_ITS ---
Subjective Subjective Date of Service: 09/14/20 Interval history: pt complaining of pain but had been resting comfortably up to now Physical Exam Vital Signs: Vital Signs: Last Vital Signs Temp 98.0 F 09/14/20 11:09 Pulse 72 09/14/20 11:09 Resp 18 09/14/20 11:09 BP 199/93 H 09/14/20 11:09 Pulse Ox 97 09/14/20 11:09 Body Mass Index 25.2 Const: General: cooperative and healthy appearing Resp: Effort & Inspection: normal respiratory effort Auscultation: clear to auscultation bilaterally Cardio: Heart sounds: S1 normal heart sound present and S2 normal heart sound present GI: Other: abdo - soft, tender at incision nondistended hypo bowel sounds, dressings clean , sero sang chelsea drainage : Other: nick cath in and clear Extrem: General: Yes normal to inspection and Yes normal exam except as noted Psych: Appearance: grossly normal Affect: normal affect Attitude: cooperative Thought process: Normal thought process present Thought content: Normal thought content present Progress Note: A&P Assessment and plan (1) Bowel perforation: Status: Acute Assessment and Plan: 50 year old male pod#1 s/p jeanie patch for perforated gastric ulcer - doing well cont npo -ng out, ivf, bid ppi, iv pain meds, ambulate, incentive spirometer, iv antibx note - due to folwy insertion trauma need to keep itinf or about 5 days - urine appears clear now will keep npo to allow patch to heal, consider, study/diet increase wednesday or wednesday. Fall Risk Details Current Medications: Current Medications Generic Name Dose Route Start Last Admin Trade Name Ruddyq PRN Reason Stop Dose Admin Hydralazine HCl 5 mg 09/13/20 20:15 09/14/20 11:05 Hydralazine Hcl 20 Mg/Ml Vial IVPUSH 5 mg Q4H PRN Administration BP>180/90 Protocol Hydromorphone HCl 0.25 mg 09/13/20 16:00 09/13/20 17:30 Hydromorphone Hcl 0.5 Mg/0.5 Ml Syringe IVPUSH 0.25 mg Q5M PRN Administration Pain, Severe (Pain Scale 7-10) Levofloxacin 500 mg in 100 mls @ 100 mls/hr 09/13/20 15:45 09/13/20 18:51 Levaquin IV Not Given Q24H [facility] Metronidazole 500 mg in 100 mls @ 100 mls/hr 09/13/20 21:00 09/14/20 07:29 Flagyl IV Infused Q8H [facility] Infusion Promethazine HCl 6.25 mg/ 50.25 mls @ 201 mls/hr 09/13/20 16:00 Sodium Chloride IV ONCE PRN Nausea and Vomiting Promethazine HCl 12.5 mg/ 50.5 mls @ 202 mls/hr 09/13/20 18:45 Sodium Chloride IV Q6H PRN Nausea Acetaminophen 1,000 mg in 100 mls @ 400 mls/hr 09/13/20 21:30 09/14/20 10:07 Ofirmev IV 09/14/20 15:44 Infused Q6H [facility] Infusion Dextrose/Sodium Chloride 1,000 mls @ 50 mls/hr 09/13/20 20:15 09/13/20 20:39 D51/2ns IVCONT 50 mls/hr .Q20H [facility] Administration Insulin Glargine 15 unit 09/13/20 21:00 09/13/20 20:39 Insulin Glargine,Hum.Rec.Anlog 100 Unit/Ml 10 Ml Vial SUBCUT 15 unit BEDTIME [facility] Administration Insulin Human Lispro 0 unit 09/13/20 21:00 09/14/20 09:13 Insulin Lispro 100 Unit/Ml 3 Ml Vial SUBCUT Not Given QIDACHS [facility] Protocol Morphine Sulfate 4 mg 09/13/20 16:01 09/14/20 07:16 Morphine Sulfate 4 Mg/Ml Cartridge IVPUSH 4 mg Q3H PRN Administration Pain, Severe (Pain Scale 7-10) Ondansetron HCl 4 mg 09/13/20 16:00 09/14/20 07:18 Ondansetron Hcl 4 Mg/2 Ml Vial IVPUSH 4 mg ONCE PRN Administration Nausea and Vomiting Ondansetron HCl 4 mg 09/13/20 18:45 Ondansetron Hcl 4 Mg/2 Ml Vial IVPUSH Q8H PRN Nausea Pantoprazole Sodium 40 mg 09/13/20 18:45 09/14/20 05:51 Pantoprazole Sodium 40 Mg/10 Ml Vial IVPUSH 40 mg BID@0630,1630 [facility] Administration Pharmacy Consult 1 each 09/13/20 10:44 Consult Rx Perform Med Rec MISCELLANE ONCE PRN Consult order Sodium Chloride 3 ml 09/13/20 16:00 09/14/20 09:13 0.9 % Sodium Chloride Flush 3 Ml Syringe IVFLUSH Not Given QSHIFT [facility] Time Spent With Patient Time: Total time spent is greater than 50% in coordination of care (as documented) at patient's floor/unit and/or counseling patient: Time with patient: 25 - 35 minutes Procedures Date of Service Date of Service: 09/14/20 Quality Stroke Does the patient have a stroke diagnosis?: No VTE Prior VTE?: No VTE Risk Level:: Surgical - moderate VTE Device Contraindication: N/A - Device Ordered VTE Drug Contraindication: N/A - Med Ordered
[2020-09-14] MEDS: Insulin Lispro 100 UNIT/ML 3 ML VIAL SUBCUT ×3 (11:56→20:18)
--- NOTE | 2020-09-14 15:08 | HO.PM.IMPN ---
Subjective Subjective Date of Service: 09/14/20 Interval History: complaining of abdominal pain and also complained of withdrawal symptoms since is on Suboxone twice daily, complaining of mild nausea, not passing flatus, noted to have significantly elevated blood pressure [employer] HELPER no headache, no dizziness CVS no chest pain, no palpitation no urinary burning, no hematuria Physical Exam Vital Signs: Vital Signs: Last Vital Signs Temp 98.0 F 09/14/20 11:09 Pulse 72 09/14/20 11:09 Resp 18 09/14/20 11:09 BP 199/93 H 09/14/20 11:09 Pulse Ox 97 09/14/20 11:09 Body Mass Index 25.2 Gen: mild acute distress due to pain neck is supple, no JVD Pulmonary: lungs clear to auscultation, diminished breath sound at bases, no respiratory distress CVS: Normal S1-S2 Abdomen: abdomen soft, tender to palpation, BS+, SUSI drain in place with minimal serosanguineous drainage Extremities: no edema Neuro: awake alert x3, clear speech Objective Data Current Medications Generic Name Dose Route Start Last Admin Trade Name Freq PRN Reason Stop Dose Admin Hydralazine HCl 5 mg 09/13/20 20:15 09/14/20 11:05 Hydralazine Hcl 20 Mg/Ml Vial IVPUSH 5 mg Q4H PRN Administration BP>180/90 Protocol Hydromorphone HCl 0.25 mg 09/13/20 16:00 09/13/20 17:30 Hydromorphone Hcl 0.5 Mg/0.5 Ml Syringe IVPUSH 0.25 mg Q5M PRN Administration Pain, Severe (Pain Scale 7-10) Levofloxacin 500 mg in 100 mls @ 100 mls/hr 09/13/20 15:45 09/13/20 18:51 Levaquin IV Not Given Q24H [facility] Metronidazole 500 mg in 100 mls @ 100 mls/hr 09/13/20 21:00 09/14/20 14:13 Flagyl IV Infused Q8H [facility] Infusion Promethazine HCl 6.25 mg/ 50.25 mls @ 201 mls/hr 09/13/20 16:00 Sodium Chloride IV ONCE PRN Nausea and Vomiting Promethazine HCl 12.5 mg/ 50.5 mls @ 202 mls/hr 09/13/20 18:45 Sodium Chloride IV Q6H PRN Nausea Acetaminophen 1,000 mg in 100 mls @ 400 mls/hr 09/13/20 21:30 09/14/20 10:07 Ofirmev IV 09/14/20 15:44 Infused Q6H [facility] Infusion Dextrose/Sodium Chloride 1,000 mls @ 50 mls/hr 09/13/20 20:15 09/13/20 20:39 D51/2ns IVCONT 50 mls/hr .Q20H [facility] Administration Insulin Glargine 15 unit 09/13/20 21:00 09/13/20 20:39 Insulin Glargine,Hum.Rec.Anlog 100 Unit/Ml 10 Ml Vial SUBCUT 15 unit BEDTIME [facility] Administration Insulin Human Lispro 0 unit 09/13/20 21:00 09/14/20 11:56 Insulin Lispro 100 Unit/Ml 3 Ml Vial SUBCUT 4 unit QIDACHS [facility] Administration Protocol Morphine Sulfate 4 mg 09/13/20 16:01 09/14/20 14:51 Morphine Sulfate 4 Mg/Ml Cartridge IVPUSH 4 mg Q3H PRN Administration Pain, Severe (Pain Scale 7-10) Ondansetron HCl 4 mg 09/13/20 16:00 09/14/20 07:18 Ondansetron Hcl 4 Mg/2 Ml Vial IVPUSH 4 mg ONCE PRN Administration Nausea and Vomiting Ondansetron HCl 4 mg 09/13/20 18:45 Ondansetron Hcl 4 Mg/2 Ml Vial IVPUSH Q8H PRN Nausea Pantoprazole Sodium 40 mg 09/13/20 18:45 09/14/20 05:51 Pantoprazole Sodium 40 Mg/10 Ml Vial IVPUSH 40 mg BID@0630,1630 [facility] Administration Pharmacy Consult 1 each 09/13/20 10:44 Consult Rx Perform Med Rec MISCELLANE ONCE PRN Consult order Sodium Chloride 3 ml 09/13/20 16:00 09/14/20 09:13 0.9 % Sodium Chloride Flush 3 Ml Syringe IVFLUSH Not Given QSHIFT [facility] Labs CBC & Chem 7: 09/14/20 06:36 09/14/20 06:36 Labs: Laboratory Results - last 24 hr 09/13/20 09/13/20 09/14/20 10:49 20:19 06:36 WBC 8.8 RBC 4.66 Hgb 13.2 L Hct 38.1 L MCV 81.8 MCH 28.3 MCHC 34.6 RDW 11.9 Plt Count 211 D MPV 10.5 Absolute Nucleated RBC 0.000 Nucleated RBC % (auto) 0.0 Sodium Potassium Chloride Carbon Dioxide Anion Gap BUN Creatinine Estim Creat Clear Calc Estimated GFR POC Glucose 240 H 279 H Random Glucose Calcium 09/14/20 09/14/20 09/14/20 06:36 07:31 11:32 WBC RBC Hgb Hct MCV MCH MCHC RDW Plt Count MPV Absolute Nucleated RBC Nucleated RBC % (auto) Sodium 133 L Potassium 3.8 Chloride 102 Carbon Dioxide 22 Anion Gap 13 BUN 14 Creatinine 0.75 Estim Creat Clear Calc 117.8 Estimated GFR > 60 POC Glucose 208 H 247 H Random Glucose 197 H Calcium 8.1 L D Microbiology Microbiology Results: Microbiology 09/13/20 12:48 Blood Culture - Preliminary Blood - Venous No growth after 24 hours. 09/13/20 12:29 Blood Culture - Preliminary Blood - Venous No growth after 24 hours. Quality Stroke Does the patient have a stroke diagnosis?: No VTE Prior VTE?: No VTE Risk Level:: Surgical - moderate VTE Device Contraindication: N/A - Device Ordered VTE Drug Contraindication: N/A - Med Ordered Assessment and Plan (1) Hypertension: Status: Acute (2) Bowel perforation: Status: Acute (3) Substance abuse: Status: Acute (4) Opioid use disorder: Status: Acute (5) Diabetes mellitus: Status: Acute Assessment and Plan: 50-year-old male with a past medical history of hypertension, insulin-dependent diabetes, recent admission to the hospital for DKA, polysubstance abuse, opiate dependence on Suboxone presented to the hospital with nausea vomiting abdominal pain noted to have bowel perforation. Status post surgery. acute gastric ulcer perforation: Status post Roberto patch surgery postoperative day 1. being managed by General surgery continue IV fluids changed to IV d5w with normal saline, continue IV antibiotics day 2 SUSI drain with minimal serosanguineous drain, continue npo, poor pain control will DC IV morphine and place patient on IV Dilaudid follow clinical course close History of insulin-dependent diabetes: Patient had recent history of DKA. Monitor fingerstick glucose. continue low dose Lantus and sliding scale; Patient currently NPO, continue gentle IV fluids. History of hypertension: noted to have significantly elevated blood pressure, will change hydralazine to 10 mg q.6 hour Prn, treat pain and anxiety Opiate dependence/ withdrawal: Patient on Suboxone, since currently in pain will give Dilaudid for pain control and hold Suboxone Will consult Addiction Medicine for further recommendations.
--- NOTE | 2020-09-14 15:19 | MHC.CM.PN ---
NURSE REACTOR FUELING SUPERVISOR NOTE ATTEMPTED TO SEE PATIENT 2X TODAY AND WAS ASKED BY HIM TO COME BACK LATER , HE WAS SEEN THIS AFTERNOON STILL SOMEWHAT SLEEPY PATIENT WAS RECENTLY HERE IN THE ICU FOR DKA, HE WAS NOW ADMITTED INPATIENT STATUS SECONDARY TO DIAGNOSIS OF PERFORATED VISCUS WENT TO SURGERY 09/13/20 AND HAS A J-TUBE DRAING . PER DOCUMENTATION PATIENT HAS HISTORY OF CRACK , COCAINE AND HEROIN USE INIATED REFERRAL TO THE NURSE STOKER ERECTOR CASPER HE CONTINUED TO BE SLEEPY CLOSING HIS EYES FOR THIS ASSESSMENT AND HAVING HIM WAKE UP HE REPORTS HE IS ACTIVE INDEPENDENT IN ALL ADLS AND NOBILITY ON SUBOXONE FOR SUBSTANCE ABUSE BUT WOULD NOT GO INTO IT DISCHARGE PLAN TO BE FURTHER DETERMINED BASED ON DISCHARGE NEEDS AND HIS ACCEPTANCE OF SERVICES PCP WILL TRY TO SPEAK WITH PATIENT AGAIN TOMORROW TO ASK ABOUT HCP AND PCP AND WHERE HE GOES FOR HIS SUBOOXONE TRANSPORTATION FAMILY MEDICARE IMM REVIEWE WITH HIM AND LEFT AT BEDSIDE
--- NOTE | 2020-09-14 15:27 | PC.NURSE ---
1200 BP running high. IV hydralazine give with mild eff. Dr Silva notified. NNO at this time. Last BP 161/90 Morphine given for pain.
[2020-09-14] MEDS: Dextrose 5 % and 0.9 % NaCl 1,000 ML 80 ML IVCONT (15:29)
[2020-09-14] MEDS: levoFLOXacin/D5W 500 MG/100 ML PIGGYBACK 100 MG IV (15:29)
[2020-09-14] MEDS: LORazepam 2 MG/ML VIAL 0.5 MG IVPUSH ×2 (15:29→21:23)
[2020-09-14 16:05] LABS: Glucose, Whole Blood 218 mg/dL (60-115)
[2020-09-14] MEDS: HYDROmorphone HCl 1 MG/ML SYRINGE IVPUSH ×2 (18:37→22:09)
--- NOTE | 2020-09-14 19:14 | HO.POSTANES ---
Post Anesthesia Evaluation Post Anesthesia Evaluation Vital Signs: Vital Signs Temp Pulse Resp BP Pulse Ox 09/14/20 16:50 94 157/85 H 09/14/20 15:37 97.8 F 78 20 175/80 H 99 09/14/20 11:09 98.0 F 72 18 199/93 H 97 Anesthesia: General Endotracheal-GETA Mental Status: Awake Pain Control: Satisfactory Nausea/Vomiting: None Hydration: Adequate Anesthesia-Related Issues: No Anes. Related Issues
[2020-09-14 20:02] LABS: Glucose, Whole Blood 223 mg/dL (60-115)
[2020-09-14] MEDS: Insulin Glargine,Hum.rec.anlog 100 UNIT/ML 10 ML VIAL 15 UNIT SUBCUT (20:18)
[2020-09-15] MEDS: HYDROmorphone HCl 1 MG/ML SYRINGE IVPUSH ×5 (01:53→21:23)
[2020-09-15] MEDS: ondansetron HCL 4 MG/2 ML VIAL IVPUSH (01:58)
[2020-09-15] MEDS: LORazepam 2 MG/ML VIAL 0.5 MG IVPUSH ×3 (03:55→16:11)
[2020-09-15] MEDS: Dextrose 5 % and 0.9 % NaCl 1,000 ML 80 ML IVCONT ×2 (03:56→19:46)
[2020-09-15 04:00] VITALS: BP 166/77; PULSE 80; RESP 16; TEMP 36.6; O2SAT 98
[2020-09-15] MEDS: Pantoprazole Sodium 40 MG/10 ML VIAL IVPUSH ×2 (05:37→17:04)
[2020-09-15] MEDS: metroNIDAZOLE/NS 500 MG/100 ML PIGGYBACK 100 MG IV ×3 (05:37→19:46)
[2020-09-15 06:27] LABS: MANUAL DIFF FLAG NO
[2020-09-15 06:44] LABS: Basophils Percent Auto 0.2 % (0-2); Eosinophils Absolute Auto 0.2 X10*3/uL (0.0-0.4); Eosinophils Percent Auto 1.6 % (0-4); Hematocrit 35.8 % (42-52); Hemoglobin 12.5 g/dl (14.0-18.0); Imm Gran Abs Auto 0.07 X10*3/uL (0.00-0.03); Imm Gran Pct Auto 0.7 % (0.0-0.4); Lymphocytes Absolute Auto 0.5 X10*3/uL (1.2-4.9); Lymphocytes Percent Auto 4.9 % (20-40); Mean Corpuscular HGB Conc 34.9 g/dl (31.0-36.0); Mean Corpuscular Hemoglobin 28.7 pg (27.0-33.0); Mean Corpuscular Volume 82.1 fL (80-98); Mean Platelet Volume 10.7 fL (9.4-12.4); Monocytes Absolute Auto 0.4 X10*3/uL (0.1-1.2); Monocytes Percent Auto 3.8 % (2-11); Neutrophils Absolute Auto 9.3 X10*3/uL (2.0-8.3); Neutrophils Percent Auto 88.8 % (45-73); Platelet Count 185 X10*3/uL (160-400); Red Blood Count 4.36 X10*6/uL (4.60-5.80); Red Cell Distribution Width 12.1 % (11.0-16.0); White Blood Count 10.4 X10*3/uL (4.8-10.8)
[2020-09-15 07:04] LABS: Anion Gap 10 (12-20); Blood Urea Nitrogen 13 mg/dL (9-16); Calcium 8.1 mg/dL (8.4-10.2); Carbon Dioxide 23 mmol/L (22-29); Chloride 103 mmol/L (96-108); Creatinine Clr Calc Pharmacy 119.4; Estimated Glomerular Filt Rate > 60; Glucose Random 249 mg/dL (60-115); Potassium 3.9 mmol/L (3.3-5.1); Sodium 132 mmol/L (135-145)
[2020-09-15 07:38] VITALS: BP 117/75; PULSE 89; RESP 18; TEMP 36.8; O2SAT 96
[2020-09-15 08:17] LABS: Glucose, Whole Blood 238 mg/dL (60-115)
[2020-09-15] MEDS: Insulin Lispro 100 UNIT/ML 3 ML VIAL SUBCUT ×3 (08:23→17:04)
[2020-09-15 09:26] LABS: Glucose, Whole Blood 232 mg/dL (60-115)
--- NOTE | 2020-09-15 10:07 | PM.PNGS ---
Subjective Subjective Date of Service: 09/15/20 Interval history: pt compalining of pain says not controlled and he wants to leave, morphine had been switched to dilaudid by med team and it seems that he does have periods of sleeping and comfort Physical Exam Vital Signs: Vital Signs: Last Vital Signs Temp 98.2 F 09/15/20 07:38 Pulse 89 09/15/20 07:38 Resp 18 09/15/20 07:38 BP 117/75 09/15/20 07:38 Pulse Ox 96 09/15/20 07:38 Body Mass Index 25.2 Resp: Auscultation: clear to auscultation bilaterally Cardio: Rate: regular rate Rhythm: regular rhythm Heart sounds: S1 normal heart sound present and S2 normal heart sound present GI: Other: abdo soft, mild distension, still quiet bowel sounds Extrem: Other: soft no edema nontender Progress Note: A&P Assessment and plan (1) Bowel perforation: Status: Acute Assessment and Plan: pod#2 s/p Roberto patch for perforated ulcer - doing well no issues from GI - cont npo and ivf and chelsea drain - consider study to ensure no leak before feeding and removal of chelsea drain appreciate med team following the pt Fall Risk Details Current Medications: Current Medications Generic Name Dose Route Start Last Admin Trade Name Freq PRN Reason Stop Dose Admin Hydralazine HCl 10 mg 09/14/20 15:15 Hydralazine Hcl 20 Mg/Ml Vial IVPUSH Q6H PRN BP>180/90 Protocol Hydromorphone HCl 1 mg 09/14/20 15:13 09/15/20 06:37 Hydromorphone Hcl 1 Mg/Ml Syringe IVPUSH 1 mg Q4H PRN Administration Pain, Severe (Pain Scale 7-10) Levofloxacin 500 mg in 100 mls @ 100 mls/hr 09/13/20 15:45 09/14/20 16:34 Levaquin IV Infused Q24H [facility] Infusion Metronidazole 500 mg in 100 mls @ 100 mls/hr 09/13/20 21:00 09/15/20 06:41 Flagyl IV Infused Q8H [facility] Infusion Promethazine HCl 6.25 mg/ 50.25 mls @ 201 mls/hr 09/13/20 16:00 Sodium Chloride IV ONCE PRN Nausea and Vomiting Promethazine HCl 12.5 mg/ 50.5 mls @ 202 mls/hr 09/13/20 18:45 Sodium Chloride IV Q6H PRN Nausea Dextrose/Sodium Chloride 1,000 mls @ 80 mls/hr 09/14/20 15:15 09/15/20 03:56 D5ns IVCONT 80 mls/hr .[id number] [facility] Administration Insulin Glargine 15 unit 09/13/20 21:00 09/14/20 20:18 Insulin Glargine,Hum.Rec.Anlog 100 Unit/Ml 10 Ml Vial SUBCUT 15 unit BEDTIME [facility] Administration Insulin Human Lispro 0 unit 09/13/20 21:00 09/15/20 08:23 Insulin Lispro 100 Unit/Ml 3 Ml Vial SUBCUT 4 unit QIDACHS [facility] Administration Protocol Lorazepam 0.5 mg 09/14/20 15:13 09/15/20 10:01 Lorazepam 2 Mg/Ml Vial IVPUSH 0.5 mg Q6H PRN Administration anxiety/restlessness Ondansetron HCl 4 mg 09/13/20 16:00 09/15/20 01:58 Ondansetron Hcl 4 Mg/2 Ml Vial IVPUSH 4 mg ONCE PRN Administration Nausea and Vomiting Ondansetron HCl 4 mg 09/13/20 18:45 09/14/20 18:41 Ondansetron Hcl 4 Mg/2 Ml Vial IVPUSH 4 mg Q8H PRN Administration Nausea Pantoprazole Sodium 40 mg 09/13/20 18:45 09/15/20 05:37 Pantoprazole Sodium 40 Mg/10 Ml Vial IVPUSH 40 mg BID@0630,1630 [facility] Administration Pharmacy Consult 1 each 09/13/20 10:44 Consult Rx Perform Med Rec MISCELLANE ONCE PRN Consult order Sodium Chloride 3 ml 09/13/20 16:00 09/15/20 08:23 0.9 % Sodium Chloride Flush 3 Ml Syringe IVFLUSH Not Given QSHIFT [facility] Time Spent With Patient Time: Total time spent is greater than 50% in coordination of care (as documented) at patient's floor/unit and/or counseling patient: Time with patient: 15 - 24 minutes Procedures Date of Service Date of Service: 09/15/20 Quality Stroke Does the patient have a stroke diagnosis?: No VTE Prior VTE?: No VTE Risk Level:: Surgical - moderate VTE Device Contraindication: N/A - Device Ordered VTE Drug Contraindication: N/A - Med Ordered
--- NOTE | 2020-09-15 10:59 | MHC.RECOVSUP ---
Recovery Support note: Patient is a 50 year old Sinhala speaking male who presented to [facility] ED due to pain. This communications writer met with patient in [id number] to discuss his substance use and recovery. Patient presented as uncomfortable when this communications writer entered the room. Patient asked what can you do for me. Patient reports significant pain and states he will be leaving if it is not controlled. Discussed case with patient's RN who reported that she will be giving patient his scheduled pain medication shortly and that he does have periods of comfort. This communications writer explained to patient that he will be getting medication shortly and for him to let staff know if there is anything else that can be done to make him more comfortable. Patient acknowledged however reports that pain medication is the only thing that will help. Patient reports he feels sick due to withdrawal and he was wondering why he was not getting his Suboxone. This communications writer explained that the pain medication should be helping his withdrawal symptoms and that he is not able to get the Suboxone due to the pain medication and that he can restart the Suboxone after the pain medication is out of his system. Patient acknowledged. Patient reports he was using heroin and cocaine daily prior to coming to the hospital. Patient was unable to discuss his substance use and recovery further due to his discomfort. This communications writer will return later on today to follow up with patient. Discussed case with patient's RN, Clarissa, and Fany Naqvi NP.
[2020-09-15 11:42] VITALS: BP 153/72; PULSE 90; RESP 18; TEMP 36.9; O2SAT 97
[2020-09-15 11:47] LABS: Glucose, Whole Blood 232 mg/dL (60-115)
--- NOTE | 2020-09-15 12:10 | P.CNUR_ITS ---
History of Present Illness Consult details Consult date: 09/13/20 Narrative: difficult Pena catheter placement 50-year-old male s/p gastric ulcer perforation surgery surgical team unable to place Pena catheter in operating room noted to have narrowed meatus 18 [place] coude of tip Pena catheter placed with 600 cc return clean technique catheter removal in 48-72 hours PMFSH Past Medical History Medical History (Updated 09/15/20 @ 12:13 by Helder Lainez MD) Opioid use disorder Social History Social History Household Members: Family Housing: Apartment Do you presently have visiting nurse or other home services: No Alcohol intake: current Alcohol intake frequency: does not drink Patient Tobacco Use Status: Current everyday Tobacco user Tobacco use type: Cigarette Cigarette Packs Per Day: 1 Cigarettes Per Day: 20.0 Second Hand Smoke Exposure: No Substance Use Type: Crack/Cocaine and Heroin service: No Current occupational status: unemployed Meds Allergies Allergy/AdvReac Type Severity Reaction Status Date / Time Penicillins Allergy Unknown UNKNOWN Verified 07/05/20 09:49 Active Medications: Current Medications Generic Name Dose Route Start Last Admin Trade Name Freq PRN Reason Stop Dose Admin Hydralazine HCl 10 mg 09/14/20 15:15 Hydralazine Hcl 20 Mg/Ml Vial IVPUSH Q6H PRN BP>180/90 Protocol Hydromorphone HCl 1 mg 09/14/20 15:13 09/15/20 06:37 Hydromorphone Hcl 1 Mg/Ml Syringe IVPUSH 1 mg Q4H PRN Administration Pain, Severe (Pain Scale 7-10) Levofloxacin 500 mg in 100 mls @ 100 mls/hr 09/13/20 15:45 09/14/20 16:34 Levaquin IV Infused Q24H [facility] Infusion Metronidazole 500 mg in 100 mls @ 100 mls/hr 09/13/20 21:00 09/15/20 06:41 Flagyl IV Infused Q8H [facility] Infusion Promethazine HCl 6.25 mg/ 50.25 mls @ 201 mls/hr 09/13/20 16:00 Sodium Chloride IV ONCE PRN Nausea and Vomiting Promethazine HCl 12.5 mg/ 50.5 mls @ 202 mls/hr 09/13/20 18:45 Sodium Chloride IV Q6H PRN Nausea Dextrose/Sodium Chloride 1,000 mls @ 80 mls/hr 09/14/20 15:15 09/15/20 03:56 D5ns IVCONT 80 mls/hr .[id number] [facility] Administration Insulin Glargine 15 unit 09/13/20 21:00 09/14/20 20:18 Insulin Glargine,Hum.Rec.Anlog 100 Unit/Ml 10 Ml Vial SUBCUT 15 unit BEDTIME [facility] Administration Insulin Human Lispro 0 unit 09/13/20 21:00 09/15/20 08:23 Insulin Lispro 100 Unit/Ml 3 Ml Vial SUBCUT 4 unit QIDACHS [facility] Administration Protocol Lorazepam 0.5 mg 09/14/20 15:13 09/15/20 10:01 Lorazepam 2 Mg/Ml Vial IVPUSH 0.5 mg Q6H PRN Administration anxiety/restlessness Ondansetron HCl 4 mg 09/13/20 16:00 09/15/20 01:58 Ondansetron Hcl 4 Mg/2 Ml Vial IVPUSH 4 mg ONCE PRN Administration Nausea and Vomiting Ondansetron HCl 4 mg 09/13/20 18:45 09/14/20 18:41 Ondansetron Hcl 4 Mg/2 Ml Vial IVPUSH 4 mg Q8H PRN Administration Nausea Pantoprazole Sodium 40 mg 09/13/20 18:45 09/15/20 05:37 Pantoprazole Sodium 40 Mg/10 Ml Vial IVPUSH 40 mg BID@0630,1630 [facility] Administration Pharmacy Consult 1 each 09/13/20 10:44 Consult Rx Perform Med Rec MISCELLANE ONCE PRN Consult order Sodium Chloride 3 ml 09/13/20 16:00 09/15/20 08:23 0.9 % Sodium Chloride Flush 3 Ml Syringe IVFLUSH Not Given QSHIFT [facility] Home Medications Medication Instructions Recorded Confirmed Last Taken Type clonidine HCl 0.1 mg tablet 0.1 mg PO BID PRN 02/09/20 09/13/20 Unknown History insulin glargine 100 unit/mL (3 40 unit SUBCUT BEDTIME 02/09/20 09/13/20 Unknown History mL) subcutaneous pen trazodone 100 mg tablet 100 mg PO BEDTIME PRN 02/09/20 09/13/20 Unknown History hydroxyzine HCl 1 tab PO BID PRN 09/13/20 09/13/20 Unknown History insulin aspart U-100 [Novolog See Protocol SUBCUT DIRECTED 09/13/20 09/13/20 Unknown History Flexpen U-100 Insulin] quetiapine 1 tab PO BEDTIME 09/13/20 09/13/20 Unknown History Physical Exam Vital Signs: Vital Signs: Last Vital Signs Temp 98.5 F 09/15/20 11:42 Pulse 90 09/15/20 11:42 Resp 18 09/15/20 11:42 BP 153/72 H 09/15/20 11:42 Pulse Ox 97 09/15/20 11:42 Body Mass Index 25.2 Const: General: cooperative, healthy appearing, comfortable and no acute distress Nutritional Appearance: average body habitus Orientation/consciousness: oriented to person, oriented to place and oriented to time Eyes: General: appearance normal, both eyes and all related structures Chest: Chest palpation & inspection: normal inspection of the chest Resp: Effort & Inspection: normal respiratory effort Cardio: Rate: regular rate GI: Inspection: Yes normal to inspection Skin: Hair: normal Neuro: General: oriented to person, oriented to place and oriented to time Extrem: General: Yes normal to inspection Results Labs Result diagrams: 09/15/20 05:51 09/15/20 05:51 Labs: Abnormal lab results 09/14/20 09/14/20 09/15/20 Range/Units 16:00 19:59 05:51 RBC 4.36 L (4.60-5.80) X10*6/uL Hgb 12.5 L (14.0-18.0) g/dl Hct 35.8 L (42-52) % Immature Gran % (Auto) 0.7 H (0.0-0.4) % Neut % (Auto) 88.8 H (45-73) % Lymph % (Auto) 4.9 L (20-40) % Lymph # (Auto) 0.5 L (1.2-4.9) X10*3/uL Abs Immat Gran (auto) 0.07 H (0.00-0.03) X10*3/uL Absolute Neuts (auto) 9.3 H (2.0-8.3) X10*3/uL Sodium (135-145) mmol/L Anion Gap (12-20) POC Glucose 218 H 223 H (60-115) mg/dL Random Glucose (60-115) mg/dL Calcium (8.4-10.2) mg/dL 09/15/20 09/15/20 09/15/20 Range/Units 05:51 07:37 09:22 RBC (4.60-5.80) X10*6/uL Hgb (14.0-18.0) g/dl Hct (42-52) % Immature Gran % (Auto) (0.0-0.4) % Neut % (Auto) (45-73) % Lymph % (Auto) (20-40) % Lymph # (Auto) (1.2-4.9) X10*3/uL Abs Immat Gran (auto) (0.00-0.03) X10*3/uL Absolute Neuts (auto) (2.0-8.3) X10*3/uL Sodium 132 L (135-145) mmol/L Anion Gap 10 L (12-20) POC Glucose 238 H 232 H (60-115) mg/dL Random Glucose 249 H (60-115) mg/dL Calcium 8.1 L (8.4-10.2) mg/dL 09/15/20 Range/Units 11:40 RBC (4.60-5.80) X10*6/uL Hgb (14.0-18.0) g/dl Hct (42-52) % Immature Gran % (Auto) (0.0-0.4) % Neut % (Auto) (45-73) % Lymph % (Auto) (20-40) % Lymph # (Auto) (1.2-4.9) X10*3/uL Abs Immat Gran (auto) (0.00-0.03) X10*3/uL Absolute Neuts (auto) (2.0-8.3) X10*3/uL Sodium (135-145) mmol/L Anion Gap (12-20) POC Glucose 232 H (60-115) mg/dL Random Glucose (60-115) mg/dL Calcium (8.4-10.2) mg/dL Short CBC 09/15/20 Range/Units 05:51 WBC 10.4 (4.8-10.8) X10*3/uL Hgb 12.5 L (14.0-18.0) g/dl Hct 35.8 L (42-52) % Plt Count 185 (160-400) X10*3/uL BMP 09/15/20 05:51 Sodium 132 L Potassium 3.9 Chloride 103 Carbon Dioxide 23 BUN 13 Creatinine 0.74 Calcium 8.1 L All other labs normal. Assessment and Plan (1) Urinary catheter complication: Status: Acute catheter placed retention with removal in 48-72 hours Procedures Date of Service Date of Service: 09/13/20
--- NOTE | 2020-09-15 14:22 | P.PNIM_ITS ---
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, no dizziness CVS no chest pain, no palpitation respiratory no cough, no shortness of breath Physical Exam Vital Signs: Vital Signs: Last Vital Signs Temp 98.5 F 09/15/20 11:42 Pulse 90 09/15/20 11:42 Resp 18 09/15/20 11:42 BP 153/72 H 09/15/20 11:42 Pulse Ox 97 09/15/20 11:42 Body Mass Index 25.2 Gen: no acute distress neck is supple, no JVD Pulmonary: lungs clear to auscultation, diminished breath sound at bases, no respiratory distress CVS: Normal S1-S2 Abdomen: abdomen soft, mild distension and tenderness to palpation, BS+, SUSI drain in place with minimal serosanguineous drainage Extremities: no edema Neuro: awake alert x3, clear speech Objective Data Current Medications Generic Name Dose Route Start Last Admin Trade Name Ruddyq PRN Reason Stop Dose Admin Hydralazine HCl 10 mg 09/14/20 15:15 Hydralazine Hcl 20 Mg/Ml Vial IVPUSH Q6H PRN BP>180/90 Protocol Hydromorphone HCl 1 mg 09/14/20 15:13 09/15/20 13:21 Hydromorphone Hcl 1 Mg/Ml Syringe IVPUSH 1 mg Q4H PRN Administration Pain, Severe (Pain Scale 7-10) Levofloxacin 500 mg in 100 mls @ 100 mls/hr 09/13/20 15:45 09/14/20 16:34 Levaquin IV Infused Q24H [facility] Infusion Metronidazole 500 mg in 100 mls @ 100 mls/hr 09/13/20 21:00 09/15/20 13:28 Flagyl IV Infused Q8H [facility] Infusion Promethazine HCl 6.25 mg/ 50.25 mls @ 201 mls/hr 09/13/20 16:00 Sodium Chloride IV ONCE PRN Nausea and Vomiting Promethazine HCl 12.5 mg/ 50.5 mls @ 202 mls/hr 09/13/20 18:45 Sodium Chloride IV Q6H PRN Nausea Dextrose/Sodium Chloride 1,000 mls @ 80 mls/hr 09/14/20 15:15 09/15/20 12:21 D5ns IVCONT 0 mls/hr .[id number] [facility] Infusion Insulin Glargine 15 unit 09/13/20 21:00 09/14/20 20:18 Insulin Glargine,Hum.Rec.Anlog 100 Unit/Ml 10 Ml Vial SUBCUT 15 unit BEDTIME [facility] Administration Insulin Human Lispro 0 unit 09/13/20 21:00 09/15/20 12:20 Insulin Lispro 100 Unit/Ml 3 Ml Vial SUBCUT 4 unit QIDACHS [facility] Administration Protocol Lorazepam 0.5 mg 09/14/20 15:13 09/15/20 10:01 Lorazepam 2 Mg/Ml Vial IVPUSH 0.5 mg Q6H PRN Administration anxiety/restlessness Ondansetron HCl 4 mg 09/13/20 16:00 09/15/20 01:58 Ondansetron Hcl 4 Mg/2 Ml Vial IVPUSH 4 mg ONCE PRN Administration Nausea and Vomiting Ondansetron HCl 4 mg 09/13/20 18:45 09/14/20 18:41 Ondansetron Hcl 4 Mg/2 Ml Vial IVPUSH 4 mg Q8H PRN Administration Nausea Pantoprazole Sodium 40 mg 09/13/20 18:45 09/15/20 05:37 Pantoprazole Sodium 40 Mg/10 Ml Vial IVPUSH 40 mg BID@0630,1630 [facility] Administration Pharmacy Consult 1 each 09/13/20 10:44 Consult Rx Perform Med Rec MISCELLANE ONCE PRN Consult order Sodium Chloride 3 ml 09/13/20 16:00 09/15/20 08:23 0.9 % Sodium Chloride Flush 3 Ml Syringe IVFLUSH Not Given QSHIFT [facility] Labs CBC & Chem 7: 09/15/20 05:51 09/15/20 05:51 Labs: Laboratory Results - last 24 hr 09/14/20 09/14/20 09/15/20 16:00 19:59 05:51 WBC 10.4 RBC 4.36 L Hgb 12.5 L Hct 35.8 L MCV 82.1 MCH 28.7 MCHC 34.9 RDW 12.1 Plt Count 185 MPV 10.7 Immature Gran % (Auto) 0.7 H Neut % (Auto) 88.8 H Lymph % (Auto) 4.9 L Mckean % (Auto) 3.8 Eos % (Auto) 1.6 Baso % (Auto) 0.2 Lymph # (Auto) 0.5 L Mckean # (Auto) 0.4 Eos # (Auto) 0.2 Baso # (Auto) 0.0 Abs Immat Gran (auto) 0.07 H Absolute Neuts (auto) 9.3 H Absolute Nucleated RBC 0.000 Nucleated RBC % (auto) 0.0 Sodium Potassium Chloride Carbon Dioxide Anion Gap BUN Creatinine Estim Creat Clear Calc Estimated GFR POC Glucose 218 H 223 H Random Glucose Calcium 09/15/20 09/15/20 09/15/20 05:51 07:37 09:22 WBC RBC Hgb Hct MCV MCH MCHC RDW Plt Count MPV Immature Gran % (Auto) Neut % (Auto) Lymph % (Auto) Mckean % (Auto) Eos % (Auto) Baso % (Auto) Lymph # (Auto) Mckean # (Auto) Eos # (Auto) Baso # (Auto) Abs Immat Gran (auto) Absolute Neuts (auto) Absolute Nucleated RBC Nucleated RBC % (auto) Sodium 132 L Potassium 3.9 Chloride 103 Carbon Dioxide 23 Anion Gap 10 L BUN 13 Creatinine 0.74 Estim Creat Clear Calc 119.4 Estimated GFR > 60 POC Glucose 238 H 232 H Random Glucose 249 H Calcium 8.1 L 09/15/20 11:40 WBC RBC Hgb Hct MCV MCH MCHC RDW Plt Count MPV Immature Gran % (Auto) Neut % (Auto) Lymph % (Auto) Mckean % (Auto) Eos % (Auto) Baso % (Auto) Lymph # (Auto) Mckean # (Auto) Eos # (Auto) Baso # (Auto) Abs Immat Gran (auto) Absolute Neuts (auto) Absolute Nucleated RBC Nucleated RBC % (auto) Sodium Potassium Chloride Carbon Dioxide Anion Gap BUN Creatinine Estim Creat Clear Calc Estimated GFR POC Glucose 232 H Random Glucose Calcium Microbiology Microbiology Results: Microbiology 09/13/20 12:48 Blood Culture - Preliminary Blood - Venous No growth after 24 hours. 09/13/20 12:29 Blood Culture - Preliminary Blood - Venous No growth after 24 hours. Quality Stroke Does the patient have a stroke diagnosis?: No VTE Prior VTE?: No VTE Risk Level:: Surgical - moderate VTE Device Contraindication: N/A - Device Ordered VTE Drug Contraindication: N/A - Med Ordered Assessment and Plan (1) Bowel perforation: Status: Acute (2) Substance abuse: Status: Acute (3) Diabetes mellitus: Status: Acute (4) Hypertension: Status: Acute Assessment and Plan: 50-year-old male with a past medical history of hypertension, insulin-dependent diabetes, recent admission to the hospital for DKA, polysubstance abuse, opiate dependence on Suboxone presented to the hospital with nausea vomiting abdominal pain noted to have bowel perforation. Status post surgery. acute gastric ulcer perforation: complaining of pain, NPO , Status post Roberto patch surgery postoperative day 2. case discussed with General surgery they continue to recommend NPO, will continue IV fluids , and IV antibiotics day 3, patient afebrile, WBC normalized SUSI drain with minimal serosanguineous drain, good pain control since patient appears comfortable although continue to ask for more pain medications, will follow clinical course closely and adjust medication History of insulin-dependent diabetes: recent history of DKA. Monitor fingerstick glucose. continue low dose Lantus and sliding scale; Patient currently NPO, continue gentle IV fluids. History of hypertension: noted to have few elevated blood pressure reading but better controlled will continue hydralazine to 10 mg q.6 hour Prn, treat pain and anxiety Opiate dependence/ withdrawal: Patient on Suboxone, since currently in pain will give Dilaudid for pain control and hold Suboxone Will consult Addiction Medicine for further recommendations.
[2020-09-15 15:36] VITALS: BP 149/79; PULSE 92; RESP 22; TEMP 36.9; O2SAT 99
[2020-09-15] MEDS: levoFLOXacin/D5W 500 MG/100 ML PIGGYBACK 100 MG IV (16:13)
[2020-09-15 16:18] LABS: Glucose, Whole Blood 232 mg/dL (60-115)
[2020-09-15 19:13] VITALS: BP 133/81; PULSE 99; RESP 18; TEMP 36.7; O2SAT 98
[2020-09-15] MEDS: LORazepam 2 MG/ML VIAL 1 MG IVPUSH ×2 (19:46→21:23)
--- NOTE | 2020-09-15 20:12 | PC.NURSE ---
Addendum entered by Adwoa Newell RN 09/15/20 22:27: Patient still c/o anxiety and generalized pain. Md at bedside. Patient still stating he wants his to come pick him up, take his for a ride, and he will feel better and come back. Patient educated by this RN and MD at bedside about importance of staying for treatment, and the inability to leave and return as he wants. Patent still stating that he understands that this is not a good choice for him, but he is so anxious he needs to get out of here and make himself feel better. When questioning patient about what kind of drugs he uses, and how much, patient is very vague. Patient states he used to go to a Suboxone clinic but started using street drugs again and so he was kicked out of the clinic. Patient unable to state how long ago he was on suboxone, and vague about other drug use. MD aware of patients anxiety, agitation and safety issues. Patient medicated with another 1mg IV ativan and 2mg IV morphine as ordered. Patient still restless, moving from the bed to the chair multiple times, attempting to get dressed multiple times, and attempting to call family members. Patient able to state understanding of need to stay, and willingness to attempt to stay the night if the MD will help him bring down his anxiety. After STAT medications as ordered, patient slightly less agitated, but still anxious. Will continue to monitor. Original Note: Upon initial assessment, patient stating that he wants to leave AMA. States he wants to pull nick, SUSI drain and IV out, get dressed and have someone come pick him up. Spoke to patient and explained to him the dangers of pulling out tubes, also explained to patient that pulling out the SUSI was Highly discouraged and out of this RNs scope of practice to remove SUSI drain. Hospitalist made aware. Patient given 1 time dose of 1mg IV Ativan as ordered. After about 30 minutes, patient again attempted to get OOB, get dressed and remove tubes. Patient reeducated again and MD made aware again. Awaiting new orders. Patient given daughters phone number to call and speak to family.
[2020-09-15] MEDS: Morphine Sulfate 2 MG/ML CARTRIDGE IVPUSH (20:27)
[2020-09-15 23:13] VITALS: BP 145/76; PULSE 86; RESP 18; TEMP 36.9; O2SAT 100
[2020-09-16] MEDS: 0.9 % Sodium Chloride Flush 3 ML SYRINGE IVFLUSH (00:22)
[2020-09-16 00:56] VITALS: RESP 20
[2020-09-16] MEDS: HYDROmorphone HCl 1 MG/ML SYRINGE IVPUSH ×2 (00:56→05:13)
[2020-09-16] MEDS: LORazepam 2 MG/ML VIAL 0.5 MG IVPUSH (03:23)
[2020-09-16 03:33] VITALS: BP 141/68; PULSE 87; RESP 16; TEMP 36.8; O2SAT 97
[2020-09-16] MEDS: metroNIDAZOLE/NS 500 MG/100 ML PIGGYBACK 100 MG IV (04:29)
[2020-09-16] MEDS: LORazepam 2 MG/ML VIAL 1 MG IVPUSH (05:29)
[2020-09-16] MEDS: Pantoprazole Sodium 40 MG/10 ML VIAL IVPUSH (06:20)
--- NOTE | 2020-09-16 06:41 | PC.NURSE ---
PATIENT BEGAN THIS 8 HOUR SHIFT WITH A REASONABLE UNDERSTANDING OF THE NEED TO STAY A PATIENT, THE PLAN OF CARE, SAFETY, AND PAIN MANAGEMENT. HOWEVER, THE NIGHT WENT ON HE BECAME RESTLESS, UNABLE TO SLEEP, DRESSING, AND UNDRESSING, REQUESTING TO HAVE HIS SUSI DRAIN REMOVED, ZARCO CATH OUT, WANTING TO LEAVE, AND REQUESTING FOR HIS SURGEON TO COME AND REMOVE EVERYTHING. VSS, ZARCO CATHETER PATENT, SUSI DRAIN WITH SCANT AMOUNT OF SEROSANG DRNG, DSG AT DRAIN SITE D/I, AND MIDLINE STAPLE LINE DENTAL INSTRUCTOR. PATIENT MEDICATED WITH DILAUDID AT 0055, ATIVAN AT 0100, BUT STILL SLEPT IN A FEW BRIEF NAPS ONLY. REFUSED IVF AT TIMES, GOT HIMSELF DRESSED, WAS AMBULATED AROUND UNIT WITH THIS ADVERTISEMENT COMPOSITOR. DESPITE LENGTHILY EXPLANATIONS FOR SAFETY AND NEED TO STAY HE IS ALSO A NPO DIET. SENT AN UPDATE TO BOTH THE NURSING LAUNDRY WORKER FOR ASSISTANCE AND HOSPITALIST ON DUTY FOR BETTER WITHDRAWAL REGIMEN. MD ORDERED ADDITIONAL DOSE OF ATIVAN, WHICH WAS GIVEN AT O530 AFTER LETTING HIM KNOW THAT HE ALSO HAD DILAUDID AT 0515. ATIVAN WAS NOT EFFECTIVE AND THAT WAS SHARED WITH MD, DILAUDID WAS A SHORT RELIEF FOR THE PATIENT. Madi CONTINUED TO REQUEST TO BE ABLE TO LEAVE AND NUMEROUS DISCUSSIONS WERE SHARED WITH HIM CONCERNING HIS CARE, HIS DRAIN, HIS RECOVERY. PT REQUESTED AND SPOKE WITH NURSING LAUNDRY WORKER, ALSO MESSAGE SENT TO HIS SURGEON TO VISIT ON ROUNDS TO ADDRESS ALL HIS CONCERNS. PATIENT SITTING ON HIS BED AT 0655 AWAITING DOCTOR TO EXPLAIN PLAN OF CARE. WILL TRY TO SECURE A SITTER FOR DAY STAFF. WILL CONTINUE TO MONITOR CLOSELY.
[2020-09-16 07:39] VITALS: BP 153/82; PULSE 96; RESP 20; TEMP 36.4; O2SAT 99
[2020-09-16 07:49] LABS: Glucose, Whole Blood 275 mg/dL (60-115)
[2020-09-16 07:52] LABS: Glucose, Whole Blood 248 mg/dL (60-115)
[2020-09-16] MEDS: Insulin Lispro 100 UNIT/ML 3 ML VIAL SUBCUT (08:10)
[2020-09-16 08:37] VITALS: RESP 20
[2020-09-16] MEDS: HYDROmorphone HCl 2 MG/ML VIAL IVPUSH (08:37)
--- NOTE | 2020-09-16 09:00 | MHC.RECOVRN ---
T/w met with pt in 369 after being notified by nurse junior brand manager that pt wishes to leave AMA. Pt had been admitted on?Wednesday for a perforated viscus. At that time, pt was also found to be in opioid withdrawal. Upon entering pts room, pt visibly anxious, restless, goosebumps. Pt reports pain is more severe than withdrawal at this time. T/w explained to pt that we would like to manage those symptoms and have the pt stay in the hospital. At this time, provider ordered additional 2 mg Dilaudid. Pt received and reports feeling better. ?? Pt continues to report he needs his phone from his apartment, feed animals, gather clothes, etc. Pt reports wishing to leave and return in 1/2 hour.? T/w spoke with Fany Naqvi APRN, who is in to see pt.?
--- NOTE | 2020-09-16 09:45 | PM.PNGS ---
Subjective Subjective Date of Service: 09/16/20 Interval history: As per nurse, has been asking to sign out of the hospital against medical advise throughout the weekend now says that he has to take care of a lot of personal business he is asking to have all his drain and catheter removed says he has pain is okay Physical Exam Vital Signs: Vital Signs: Last Vital Signs Temp 97.5 F 09/16/20 07:39 Pulse 96 09/16/20 07:39 Resp 20 09/16/20 08:37 BP 153/82 H 09/16/20 07:39 Pulse Ox 99 09/16/20 07:39 Body Mass Index 25.2 Laboratory Results - last 24 hr 09/13/20 09/15/20 09/15/20 16:49 11:40 16:15 POC Glucose 248 H 232 H 232 H 09/16/20 07:42 POC Glucose 275 H Const: Other: appears very anxious Resp: Effort & Inspection: normal respiratory effort Cardio: Rate: regular rate GI: Other: incision clean and dry, SUSI drain scanty output Inspection: No distended Palpation (GI): Soft to palpation, not firm and no guarding : Other: urine clear on Pena, nonbloody Progress Note: A&P Assessment and plan (1) Bowel perforation: Status: Acute Assessment and Plan: status post omental patch his SUSI drain is clear with scanty output I will start him on clear liquids he has been insisting on signing out against medical advise I have made multiple phone call to his who has not picked up - I was able to her last Wednesday postop I have asked the addiction service to evaluate him because of his history of substance abuse and question of competence I had multiple discussions with the patient stating importance of staying in the hospital because of his perforated ulcer I have made adjustments to his pain medications as advised by Fany Naqvi he otherwise looks comfortable in stable his Pena can be DC did Fall Risk Details Current Medications: Current Medications Generic Name Dose Route Start Last Admin Trade Name Freq PRN Reason Stop Dose Admin Hydralazine HCl 10 mg 09/14/20 15:15 Hydralazine Hcl 20 Mg/Ml Vial IVPUSH Q6H PRN BP>180/90 Protocol Hydromorphone HCl 1 mg 09/14/20 15:13 09/16/20 05:13 Hydromorphone Hcl 1 Mg/Ml Syringe IVPUSH 1 mg Q4H PRN Administration Pain, Severe (Pain Scale 7-10) Levofloxacin 500 mg in 100 mls @ 100 mls/hr 09/13/20 15:45 09/15/20 17:20 Levaquin IV Infused Q24H [facility] Infusion Metronidazole 500 mg in 100 mls @ 100 mls/hr 09/13/20 21:00 09/16/20 05:31 Flagyl IV Infused Q8H [facility] Infusion Promethazine HCl 6.25 mg/ 50.25 mls @ 201 mls/hr 09/13/20 16:00 Sodium Chloride IV ONCE PRN Nausea and Vomiting Promethazine HCl 12.5 mg/ 50.5 mls @ 202 mls/hr 09/13/20 18:45 Sodium Chloride IV Q6H PRN Nausea Dextrose/Sodium Chloride 1,000 mls @ 80 mls/hr 09/14/20 15:15 09/16/20 09:16 D5ns IVCONT Infused .[id number] [facility] Infusion Insulin Glargine 15 unit 09/13/20 21:00 09/15/20 22:00 Insulin Glargine,Hum.Rec.Anlog 100 Unit/Ml 10 Ml Vial SUBCUT Not Given BEDTIME [facility] Insulin Human Lispro 0 unit 09/13/20 21:00 09/16/20 08:10 Insulin Lispro 100 Unit/Ml 3 Ml Vial SUBCUT 6 unit QIDACHS [facility] Administration Protocol Lorazepam 0.5 mg 09/14/20 15:13 09/16/20 03:23 Lorazepam 2 Mg/Ml Vial IVPUSH 0.5 mg Q6H PRN Administration anxiety/restlessness Ondansetron HCl 4 mg 09/13/20 16:00 09/15/20 01:58 Ondansetron Hcl 4 Mg/2 Ml Vial IVPUSH 4 mg ONCE PRN Administration Nausea and Vomiting Ondansetron HCl 4 mg 09/13/20 18:45 09/14/20 18:41 Ondansetron Hcl 4 Mg/2 Ml Vial IVPUSH 4 mg Q8H PRN Administration Nausea Pantoprazole Sodium 40 mg 09/13/20 18:45 09/16/20 06:20 Pantoprazole Sodium 40 Mg/10 Ml Vial IVPUSH 40 mg BID@0630,1630 [facility] Administration Pharmacy Consult 1 each 09/13/20 10:44 Consult Rx Perform Med Rec MISCELLANE ONCE PRN Consult order Sodium Chloride 3 ml 09/13/20 16:00 09/16/20 07:43 0.9 % Sodium Chloride Flush 3 Ml Syringe IVFLUSH Not Given QSHIFT [facility] Time Spent With Patient Time: Total time spent is greater than 50% in coordination of care (as documented) at patient's floor/unit and/or counseling patient: Time with patient: 15 - 24 minutes Procedures Date of Service Date of Service: 09/16/20 Quality Stroke Does the patient have a stroke diagnosis?: No VTE Prior VTE?: No VTE Risk Level:: Surgical - moderate VTE Device Contraindication: N/A - Device Ordered VTE Drug Contraindication: N/A - Med Ordered
--- NOTE | 2020-09-16 10:42 | PC.NURSE ---
7:30AM Patient requesting SUSI drain and nikc removal and to leave AMA. MD made aware, certified nursing assistant instructor made aware. MD at bedside to educate pt on risks of leavingg AMA. Concern of pt mental competency. Fany Naqvi consulted to evaluate pt. Fany naqvi at bedside. psych eval deemed pt competent. Surgeon at bedside to remove SUSI drain. Nick removed. IVs removed. AMA form signed. Leaving unaccompanied form signed.
--- NOTE | 2020-09-16 10:44 | PM.EVENT ---
Event Note Date of Service: 09/16/20 Event Note: Psychiatry received a STAT consult regarding patient from Dr. Daquan Bermudez, stating that patient has a history of drug abuse, and wanted to leave AMA after emergency surgery. Patient had already been seen by supervisor dried yeast on addiction team, who had met with patient at length this morning. I consulted with her, and was informed that patient has capacity, and has active substance use disorder. He wanted to leave AMA. Due to having capacity, if patient wishes to leave AMA, he can choose to do so. This was sent to Dr. Bermudez, via secure messaging. Thank you.
--- NOTE | 2020-09-16 10:58 | PM.EVENT ---
Event Note Date of Service: 09/16/20 Event Note: He is adamant about leaving against medical advise I have consulted risk management about this as I concerns about self-care if he goes home furthermore, I do not feel that he is ready to be discharged at all as he is only on postop day 3 from omental patching for perforated ulcer I explained to him that he is putting himself at risk for postop complications I am concerned that he will take IV drugs and there is always a risk of free perforation/ leakage from his repair site I had multiple discussions with him about this The nursing staff have been involved as well as he had been insisting on going home. I have called his as well as his daughter multiple times and I have left messages He continued to insist that he will leave regardless psych eval had been requested - he was deemed competent I removed the SUSI drain instructed him to make sure he takes his proton pump inhibitor
--- NOTE | 2020-09-16 11:35 | HO.ADDICT_ITS ---
History of Present Illness Date of Service: 09/16/2020 Chief Complaint: PERFORATED VISCUS Reason for Consult: opioid use disorder requesting to leave AMA--capacity eval Requesting physician: Daquan Bermudez Discussed with referring provider: Yes Sources of Information: patient interviewed and chart reviewed HPI Narrative: Patient is a 50 year olf male with DM and OUD currently on Suboxone. Currently medically admitted following bowel perforation. consult requested to address opioid use disorder, and also question regarding capacity as patient was requesting to be discharged against medical advice. Patient seen in room 369, awake alert and engaged in interview. At time of interview patient denying any withdrawal symptoms, had recently been medicated appropriately with Dilaudid. Discussed patient's desire to be discharged, initially patient reported that he needed to go home and take care of his pets, then she stated that he just needed to leave and take care of some things or a half an hour . This investigative writer attempted to problem solve with patient regarding caring for his pets as well as reassuring patient that pain withdrawal symptoms would be managed. Patient declined both interventions. Discussed risks associated with leaving at this time, patient able to articulate risks as well as his understanding that he is taking a risk leaving. Patient able to verbalize benefits with staying in the hospital, but again declined this as an option. Review of Systems Constitutional: Reports as per HPI Diagnostics Vital Signs (24Hr): Vital Signs - 24 hr 09/15/20 11:42 09/15/20 15:36 09/15/20 19:13 Temperature 98.5 F 98.4 F 98.1 F Pulse Rate 90 92 99 Respiratory Rate 18 22 H 18 Blood Pressure 153/72 H 149/79 H 133/81 Pulse Oximetry 97 99 98 09/15/20 23:13 09/16/20 00:56 09/16/20 03:33 Temperature 98.4 F 98.3 F Pulse Rate 86 87 Respiratory Rate 18 20 16 Blood Pressure 145/76 H 141/68 H Pulse Oximetry 100 97 09/16/20 07:39 09/16/20 08:37 Temperature 97.5 F Pulse Rate 96 Respiratory Rate 20 20 Blood Pressure 153/82 H Pulse Oximetry 99 Body Mass Index 25.2 Labs Results: 09/15/20 05:51 09/15/20 05:51 Labs: Laboratory Results - last 48 hr 09/13/20 09/14/2021 16:49 11:32 16:00 WBC RBC Hgb Hct MCV MCH MCHC RDW Plt Count MPV Immature Gran % (Auto) Neut % (Auto) Lymph % (Auto) [place] % (Auto) Eos % (Auto) Baso % (Auto) Lymph # (Auto) [place] # (Auto) Eos # (Auto) Baso # (Auto) Abs Immat Gran (auto) Absolute Neuts (auto) Absolute Nucleated RBC Nucleated RBC % (auto) Sodium Potassium Chloride Carbon Dioxide Anion Gap BUN Creatinine Estim Creat Clear Calc Estimated GFR POC Glucose 248 H 247 H 218 H Random Glucose Calcium 09/14/20 09/15/20 09/15/20 19:59 05:51 05:51 WBC 10.4 RBC 4.36 L Hgb 12.5 L Hct 35.8 L MCV 82.1 MCH 28.7 MCHC 34.9 RDW 12.1 Plt Count 185 MPV 10.7 Immature Gran % (Auto) 0.7 H Neut % (Auto) 88.8 H Lymph % (Auto) 4.9 L [place] % (Auto) 3.8 Eos % (Auto) 1.6 Baso % (Auto) 0.2 Lymph # (Auto) 0.5 L [place] # (Auto) 0.4 Eos # (Auto) 0.2 Baso # (Auto) 0.0 Abs Immat Gran (auto) 0.07 H Absolute Neuts (auto) 9.3 H Absolute Nucleated RBC 0.000 Nucleated RBC % (auto) 0.0 Sodium 132 L Potassium 3.9 Chloride 103 Carbon Dioxide 23 Anion Gap 10 L BUN 13 Creatinine 0.74 Estim Creat Clear Calc 119.4 Estimated GFR > 60 POC Glucose 223 H Random Glucose 249 H Calcium 8.1 L 09/15/20 09/15/20 09/15/20 07:37 09:22 11:40 WBC RBC Hgb Hct MCV MCH MCHC RDW Plt Count MPV Immature Gran % (Auto) Neut % (Auto) Lymph % (Auto) [place] % (Auto) Eos % (Auto) Baso % (Auto) Lymph # (Auto) [place] # (Auto) Eos # (Auto) Baso # (Auto) Abs Immat Gran (auto) Absolute Neuts (auto) Absolute Nucleated RBC Nucleated RBC % (auto) Sodium Potassium Chloride Carbon Dioxide Anion Gap BUN Creatinine Estim Creat Clear Calc Estimated GFR POC Glucose 238 H 232 H 232 H Random Glucose Calcium 09/15/20 09/16/20 16:15 07:42 WBC RBC Hgb Hct MCV MCH MCHC RDW Plt Count MPV Immature Gran % (Auto) Neut % (Auto) Lymph % (Auto) [place] % (Auto) Eos % (Auto) Baso % (Auto) Lymph # (Auto) [place] # (Auto) Eos # (Auto) Baso # (Auto) Abs Immat Gran (auto) Absolute Neuts (auto) Absolute Nucleated RBC Nucleated RBC % (auto) Sodium Potassium Chloride Carbon Dioxide Anion Gap BUN Creatinine Estim Creat Clear Calc Estimated GFR POC Glucose 232 H 275 H Random Glucose Calcium Imaging Radiology Impressions: ITS Impressions Abdomen/Pelvis CT 09/13/20 11:19 IMPRESSION: 1. No acute intra-abdominal process seen. 2. Mild free fluid in the pelvis of unknown etiology. Punctate free air seen in the right upper quadrant suspicious for bowel perforation. The exact site is not known but presumed duodenal perforation. Lack of IV and oral contrast restricts evaluation. Results were called immediately to Debbi Meza in ED by phone at 12:19 PM. Mental Status Exam Mental Status Exam Patient Appearance: Appropriate Patient Orientation: Person, Place, Time and Situation Level of Consciousness: Awake, Appropriate and Alert Patient Behavior: Appropriate Mood Description: Calm and Appropriate Affect Description: Appropriate Patient Cognition Impaired: Yes Ability to Follow Directions: Excellent Speech Pattern: Clear Hallucinations: None Delusions: Not Present Thought Process: Goal Oriented Thought Content: positive for Intact and positive for Goal Oriented Judgement: Fair Medications Allergies Allergies Allergy/AdvReac Type Severity Reaction Status Date / Time Penicillins Allergy Unknown UNKNOWN Verified 07/05/20 09:49 Assessment & Plan Assessment & Plan (1) Opioid use disorder: Status: Acute Code(s): F11.99 - Opioid use, unspecified with unspecified opioid-induced disorder Recommendations: * Declining additional intervention related opioid use disorder * harm reduction discussion * at this time patient is also demonstrating capacity to understand and appreciate risks associated with leaving the hospital against medical advice. Patient able to articulate risks including infection and associated with leaving. Greater than 50% of the session was spent on counseling and/or coordination of care PMFSH Past Medical History Medical History (Updated 09/15/20 @ 12:13 by Helder Lainez MD) Opioid use disorder Social History Social History Household Members: Family Housing: Apartment Do you presently have visiting nurse or other home services: No Alcohol intake: current Alcohol intake frequency: does not drink Patient Tobacco Use Status: Current everyday Tobacco user Tobacco use type: Cigarette Cigarette Packs Per Day: 1 Cigarettes Per Day: 20.0 Second Hand Smoke Exposure: No Substance Use Type: Crack/Cocaine and Heroin service: No Current occupational status: unemployed
--- NOTE | 2020-09-16 16:11 | P.PNIM_ITS ---
Subjective Subjective Date of Service: 09/16/20 Interval History: patient resting in bed does not appear to be in distress, adamant about leaving hospital, denies pain is the reason to leave, denies fever chills, denies withdrawal symptoms,no back pain no nausea, no vomiting. 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, no dizziness CVS no chest pain, no palpitation respiratory no cough, no shortness of breath Physical Exam Vital Signs: Vital Signs: Last Vital Signs Temp 97.5 F 09/16/20 07:39 Pulse 96 09/16/20 07:39 Resp 20 09/16/20 08:37 BP 153/82 H 09/16/20 07:39 Pulse Ox 99 09/16/20 07:39 Body Mass Index 25.2 Gen: no acute distress neck supple, no JVD Pulmonary: lungs clear to auscultation, diminished breath sound at bases, no respiratory distress CVS: Normal S1-S2 Abdomen: abdomen soft, mild enderness to palpation, BS+, SUSI drain in place with minimal drainage Extremities: no edema Neuro: awake alert x3, clear speech Objective Data Labs CBC & Chem 7: 09/15/20 05:51 09/15/20 05:51 Labs: Laboratory Results - last 24 hr 09/13/20 09/15/20 09/16/20 16:49 16:15 07:42 POC Glucose 248 H 232 H 275 H Microbiology Microbiology Results: Microbiology 09/13/20 12:48 Blood Culture - Preliminary Blood - Venous No growth after 48 hours. 09/13/20 12:29 Blood Culture - Preliminary Blood - Venous No growth after 48 hours. Quality Stroke Does the patient have a stroke diagnosis?: No VTE Prior VTE?: No VTE Risk Level:: Surgical - moderate VTE Device Contraindication: N/A - Device Ordered VTE Drug Contraindication: N/A - Med Ordered Assessment and Plan (1) Bowel perforation: Status: Acute (2) Substance abuse: Status: Acute (3) Hypertension: Status: Acute (4) Diabetes mellitus: Status: Acute Assessment and Plan: 50-year-old male with a past medical history of hypertension, insulin-dependent diabetes, recent admission to the hospital for DKA, polysubstance abuse, opiate dependence on Suboxone presented to the hospital with nausea vomiting abdominal pain noted to have bowel perforation. Status post surgery. acute gastric ulcer perforation: good pain control, NPO , Status post Roberto patch surgery postoperative day 3, patient adamant about leaving the hospital no obvious reason, patient seen by Psychiatry and Addiction Team patient is competent to make decision, tried convincing patient multiple times, patient is being followed by General surgery and they will make decision about discharge against medical advice since patient is not ready for discharge after recent emergent surgery, need imaging studies prior to initiating diet, patient is aware of complications, but still wishes to be discharged. History of insulin-dependent diabetes: recent history of DKA. strongly recommend to follow diabetic diet and insulin History of hypertension: BP elevated on clonidine at home, recommend to continue home medication Opiate dependence/ withdrawal: seen by addiction team,they offered medications for withdrawal symptoms, currently has no withdrawal symptoms has well managed pain on IV Dilaudid but is leaving against medical advice.
--- NOTE | 2020-09-17 13:53 | P.DS_ITS ---
DS: Providers Provider Date of Service: 09/16/20 Date of admission: 09/13/20 13:05 Primary care physician: Unknown Physician Consults: 09/13/20 18:45 Consult to Hospitalist Routine Consulting Provider: Hospitalist Reason For Exam: DM Consult to Urology Routine Consulting Provider: Helder Lainez Reason for consultation: traumatic nick catheterization Has provider been notified: Yes 09/13/20 20:04 Addiction Medicine Routine Consulting Provider: Fany Naqvi Reason for consultation: opiate dependecne; pt on Suboxone; 09/15/20 14:32 Addiction Medicine Routine Consulting Provider: Fany Naqvi Reason for consultation: on suboxone at home Has provider been notified: No 09/16/20 10:06 Consult to Psychiatry Stat Consulting Provider: Psych Covering Reason for consultation: hx of drug abuse, wanting to leave hospital after emergency surgery; Has provider been notified: No DS: Diagnosis Discharge Diagnosis (1) Bowel perforation: Status: Acute Problem details: 50-year-old male who came in to the ER on September 13, 2020 because of abdominal pain. His CAT scan showed pneumoperitoneum. He underwent laparotomy that same day and was noted to have perforated stomach ulcer. Omental patching was done. He had an NG tube in a SUSI drain in place. He was kept NPO and was placed on a proton pump inhibitor by IV. He continued to do well and remained stable postoperatively. He has NG tube came out postop day 2. He had been insisting throughout his postop course on leaving the hospital. On 09/16/2020, he stated that he would sign out against medical advice. A psych consult was requested to evaluate him for competency and he was deemed to be competent. I therefore removed this SUSI drain and he signed out against medical advise. He stated that he understood the possible consequences of his actions. (2) Substance abuse: Status: Acute (3) Hypertension: Status: Acute (4) Diabetes mellitus: Status: Acute DS: Medications Discharge Medications Home Medications: Home Medications Medication Instructions Recorded Confirmed clonidine HCl 0.1 mg tablet 0.1 mg PO BID PRN 02/09/20 09/13/20 insulin glargine 100 unit/mL (3 40 unit SUBCUT BEDTIME 02/09/20 09/13/20 mL) subcutaneous pen trazodone 100 mg tablet 100 mg PO BEDTIME PRN 02/09/20 09/13/20 hydroxyzine HCl 1 tab PO BID PRN 09/13/20 09/13/20 insulin aspart U-100 [Novolog See Protocol SUBCUT DIRECTED 09/13/20 09/13/20 Flexpen U-100 Insulin] quetiapine 1 tab PO BEDTIME 09/13/20 09/13/20 DS: Summary Time Spent with Patient Time attestation: Total time spent providing and/or coordinating discharge services: Discharge coordination time: Less than 30 minutes Quality: Stroke Does the patient have a stroke diagnosis?: No Physical Exam 2 Vital Signs: Vital Signs: Last Vital Signs Temp 97.5 F 09/16/20 07:39 Pulse 96 09/16/20 07:39 Resp 20 09/16/20 08:37 BP 153/82 H 09/16/20 07:39 Pulse Ox 99 09/16/20 07:39 Body Mass Index 25.2 Const: Other: anxious General: no acute distress Orientation/consciousness: patient oriented x3 Neck: Neck: Yes no lymphadenopathy Resp: Auscultation: clear to auscultation bilaterally Cardio: Rhythm: regular rhythm GI: Other: incision well healing,clean and dry Palpation (GI): Soft to palpation, nontender and no guarding Neuro: General: patient oriented x3 DS: Data Data Completed and Pending Labs on day of discharge: Preliminary micro results at discharge 09/13/20 12:48 Blood Culture - Preliminary Blood - Venous No growth after 48 hours. 09/13/20 12:29 Blood Culture - Preliminary Blood - Venous No growth after 48 hours. Discharge Plan Discharge Patient Disposition: Left Against Medical Advice Discharge Diagnosis: perforated ulcer Referrals: Daquan Bermudez MD [Physician] - 2 Weeks Physician,Unknown [Primary Care Provider] - 1 Week Discharge Medications: New omeprazole magnesium [Prilosec OTC] 20 mg tablet,delayed release (DR/EC) 40 mg PO DAILY Qty: 60 RF: 2 Continued quetiapine 100 mg tablet 1 tab PO BEDTIME RF: 0 hydroxyzine HCl 25 mg tablet 1 tab PO BID PRN (Reason: Anxiety) RF: 0 insulin aspart U-100 [Novolog Flexpen U-100 Insulin] 100 unit/mL (3 mL) insulin pen See Protocol unit subcut DIRECTED RF: 0 Lantus Solostar U-100 Insulin 100 unit/mL (3 mL) insulin pen 40 unit subcut BEDTIME RF: 0 clonidine HCl 0.1 mg tablet 0.1 mg PO BID PRN (Reason: anxiety) RF: 0 trazodone 100 mg tablet 100 mg PO BEDTIME PRN (Reason: insomnia) RF: 0 Discharge Orders: Discharge Order (Routine); Ordered 09/17/20 Ordered By: Daquan Bermudez Care Plan Goals: continue proton pump inhibitor consult on benefits of cessation of IV drug abuse Health Concerns: peptic ulcer disease control of diabetes Plan of Treatment: continue proton pump inhibitor Assessment: patient had signed out against medical advice;seemed to be stable postop Discharge Date/Time: 09/16/20 10:40
== END 2020-09-16 10:40 | disposition left against medical advice (07) | DRG 327 ==
LOC: HO.ED 13:05 → HO.EDOVER 14:38 → HO.S3 15:29
PROVIDERS: Hospitalist; Admitting Provider Surgery; Emergency Provider Emergency Medicine; Visit Provider Surgery
PROC: 0DU607Z Supplement Stomach with Autologous Tissue Substitute, Open Approach (ICD-10-PCS; CPT 49000; principal; 2020-09-13 14:00)
DX: K25.1 Acute gastric ulcer with perforation (principal); F11.20 Opioid dependence, uncomplicated; I10 Essential (primary) hypertension; F17.210 Nicotine dependence, cigarettes, uncomplicated; Z71.6 Tobacco abuse counseling; Z20.822 Contact with and (suspected) exposure to COVID-19; Z88.0 Allergy status to penicillin; Z79.4 Long term (current) use of insulin; Z79.899 Other long term (current) drug therapy
CPT/HCPCS: 36415; 74176; 80048; 80076; 82009; 82077; 82947; 83605; 83690; 83735; 84484; 85025; 85027; 85610; 85730; 86850; 86900; 86901; 87040; 87635; 93005; 99024; 99285; C1758; J0131; J0330; J0690; J1100; J1170; J1200; J1956; J2060; J2250; J2270; J2405; J2765; J3010

== ENCOUNTER → 2020-09-26 11:34 | Outpatient (BNVA) | payer OTHER, SELFPAY | PROVIDERS: Visit Provider Surgery | DX: K25.5 Chronic or unspecified gastric ulcer with perforation (principal) | CPT/HCPCS: 99212 ==

== ENCOUNTER → 2020-10-09 13:51 | Outpatient (BNVA) | payer OTHER, SELFPAY | PROVIDERS: Visit Provider Student in an Organized Health Care Education/Training Program | DX: Z51.81 Encounter for therapeutic drug level monitoring (principal) | CPT/HCPCS: 80305 ==